=== PATIENT | male | born 1960 | race Caucasian/White ===

== ENCOUNTER 2016-07-01 17:55 | Observation (INO) | payer BC ==
[2016-07-01] MEDS ORDERED: Sodium Chloride 0.9% 1000 ML 1,000 ML ONE (18:04)
[2016-07-01] MEDS ORDERED: Sodium Chloride 0.9% 500 ML 500 ML IV ONE (18:45)
[2016-07-01] MEDS: Sodium Chloride 0.9% 1000 ML 1,000 ML IV SCH (18:46)
[2016-07-01] MEDS ORDERED: ROCEPHIN 1 Gm-D5w 50 ml Bag** 50 ML IV SCH (19:00)
--- NOTE | 2016-07-01 20:10 | PCM.HP ---
History of Present Illness - Chief Complaint Chief Complaint: pneumonia. michelle History of Present Illness: is a 56 year old male pt of mine from [facility] who has been treated for respiratory symptoms for the past 3 weeks. 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 He did feel better briefly yesterday then started feeling poorly again and went to see Catia LOVE in office today. She thought he looked ill and recommended hospital admission. He has been complaining of cough (enough that his abdominal muscles are sore) and drainage, sore throat. Waking up at night with sweats. No vomiting or diarrhea. He has c/o generalized fatigue for the past 2-3 months. We did do an involved workup and his sleep study results are still pending. Has been seeing hematology for polycythemia. - Review of Systems Constitutional: Fever, Fatigue, Weight Loss Respiratory: Cough Cardiac: Edema Abdominal/Gastrointestinal: Appetite Changes Psychological: Anxiety All Other Systems: Reviewed and Negative Medications & Allergies Home Medications: Home Medication List Furosemide 40 mg [Lasix 40 MG] 40 mg PO DAILY 07/01/16 [History Confirmed 07/01/16] Levothyroxine Sodium [Synthroid] 125 mcg PO DAILY 07/01/16 [History Confirmed ] Lisinopril 20 mg [Zestril 20 MG] 20 mg PO DAILY 07/01/16 [History Confirmed 07/01/16] Rivaroxaban 10 mg Tablet [Xarelto 10 mg Tablet] 10 mg PO DAILY 07/01/16 [ History Confirmed 07/01/16] Verapamil HCl [Verelan Pm] 300 mg PO HS 07/01/16 [History Confirmed 07/01/16] Allergies/Adverse Reactions: Allergies Allergy/AdvReac Type Severity Reaction Status Date / Time Penicillins Allergy Hives Verified 07/13/12 16:14 - Past Medical History Past Medical History: Yes Neurological History: No Pertinent History ENT History: No Pertinent History Cardiac History: Arrhythmia, Hypertension Respiratory History: Pneumonia Endocrine Medical History: Hypothyroidism Musculoskelatal History: No Pertinent History History: No Pertinent History Pyscho-Social History: No Pertinent History Male Reproductive Disorders: No Pertinent History Comment: hx AFIB - Past Surgical History Past Surgical History: Yes Neuro Surgical History: No Pertinent History Cardiac History: No Pertinent History Respiratory Surgery: No Pertinent History GI Surgical History: Hernia Repair Genitourinary Surgical Hx: Kidney Surgery Musculskeletal Surgical Hx: No Pertinent History Male Surgical History: No Pertinent History Other Surgical History: nasal - Social History Smoking Status: Never smoker Exposure to second hand smoke: No Alcohol: None Drug Use: none - Physical Exam Vital Signs: Vital Signs - 24 hr Temp Pulse Resp BP Pulse Ox 07/01/16 19:58 98.4 F 83 20 144/92 94 L 07/01/16 18:27 98.4 F 83 20 144/92 94 L General Appearance: no apparent distress, obese Neurologic Exam: alert, 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, cooperative Eye Exam: eyes nml inspection Neck Exam: normal inspection, other (ttp throughout) Respiratory Exam: normal breath sounds, lungs clear, No crackles/rales, No rhonchi, No wheezing Cardiovascular Exam: regular rate/rhythm, normal heart sounds, No murmur Gastrointestinal/Abdomen Exam: soft, normal bowel sounds, No tenderness, No guarding, No rebound Back Exam: normal inspection, No CVA tenderness Extremity Exam: swelling (pretibial edema 1+ bilat) Skin Exam: normal color, warm, dry Results - Radiology Impressions Radiology Exams & Impressions: Radiology Procedures Category Date Time Status CHEST 2 VIEWS (PA AND LAT) Routine Exams 07/02/16 06:00 Ordered - Other Procedures and Tests Respiratory Therapy 07/01/16 18:10 Oxygen NASAL CANNULA 2 lpm 07/01/16 18:15 Respiratory Nebulizer UD Assessment/Plan (1) Pneumonia Current Visit: Yes Status: Acute Qualifiers: Pneumonia type: due to unspecified organism Lung location: unspecified part of lung Assessment & Plan: possibly. recheck cxr in a.m. after rehydration. continues to be ill after po antibiotics and steroids. Code(s): J18.9 - PNEUMONIA, UNSPECIFIED ORGANISM (2) Sinusitis Current Visit: Yes Status: Acute Assessment & Plan: on IV rocephin. Code(s): J32.9 - CHRONIC SINUSITIS, UNSPECIFIED (3) Fatigue Current Visit: Yes Status: Chronic Assessment & Plan: will find report on sleep study Code(s): R53.83 - OTHER FATIGUE (4) Polycythemia Current Visit: Yes Status: Chronic Code(s): D75.1 - SECONDARY POLYCYTHEMIA
[2016-07-01] MEDS ORDERED: DUONEB 0.5-3 MG/3 ml Neb IH PRN (21:10)
[2016-07-01] MEDS ORDERED: ISOPTIN S.R. 240 MG PO SCH (22:00)
[2016-07-01] MEDS: Mucinex 600MG ER Tabs PO SCH (22:38)
[2016-07-02] MEDS: Sodium Chloride 0.9% 1000 ML 1,000 ML IV SCH ×2 (01:12→08:10)
[2016-07-02] MEDS: Tussionex Pennkinetic Susp PO PRN ×2 (03:57→04:03)
[2016-07-02 05:25] LABS: BASOPHIL % 0.2 % (0.0-0.4); Eosinophil % 0.6 % (0.00-5.0); Granulocytes % 71.3 % (36.0-66.0); Lymphocytes % 20.1 % (24.0-44.0); Mean Cell Volume 90.9 fl (78-100); Mean Corpuscular Hemoglobin 29.7 pg (26-32); Mean Platelet Volume 10.1 fl (6-9.5); Monocytes % 7.8 % (0.0-12.0); Platelet Count 274 K/mm3 (150-450); Red Blood Count 5.72 M/mm3 (4.1-5.6); Red Cell Distribution Width 14.9 % (11.5-14.0); White Blood Count 14.4 K/mm3 (4.0-10.5)
[2016-07-02 05:35] LABS: BLOOD UREA NITROGEN 15 mg/dL (9-20); CHLORIDE 98 mEq/L (98-107); Glucose 139 MG/DL (70-110); Potassium 3.7 mEq/L (3.5-5.1); SODIUM 128 mEq/L (136-145)
[2016-07-02] MEDS ORDERED: Tussionex Pennkinetic Susp PO PRN (06:28)
[2016-07-02] MEDS ORDERED: MEDICATION INTERVENTION MC SCH (07:15)
[2016-07-02] MEDS: Mucinex 600MG ER Tabs PO SCH (08:11)
--- NOTE | 2016-07-02 08:28 | XRAY ---
Indication: Fatigue. Pneumonia. Comparison: One day earlier PA/lateral chest remains hyperinflated and clear. Heart is not enlarged. No new/acute findings. Impression: Stable nonacute hyperinflated chest.
[2016-07-02] MEDS ORDERED: Lasix 40 MG PO SCH (10:00)
[2016-07-02] MEDS ORDERED: XARELTO 10 MG TABLET PO SCH (10:00)
[2016-07-02] MEDS ORDERED: Zestril 20 MG PO SCH (10:00)
[2016-07-02] MEDS ORDERED: SYNTHROID 125 MCG PO SCH (10:00)
[2016-07-02] MEDS ORDERED: Levofloxacin 500MG/100ML D5W 100 ML IV SCH (10:00)
[2016-07-02] MEDS ORDERED: solu-MEDROL 40 MG IV ONE (10:16)
--- NOTE | 2016-07-02 10:22 | PCM.DS ---
Discharge Summary Date of Admission: 07/01/16 17:57 Admitting Physician: FEDERICA DAVILA Primary Care Provider: FEDERICA DAVILA Allergies Allergies Penicillins Allergy (Verified 07/13/12 16:14) [facility] Summary - Hospital Course Hospital Course: Admitted with question of pneumonia, has been treated several times for URI symptoms. Somewhat better with rocephin but will add levaquin and send home on same (discussed risk of achilles tendon issues, foot and ankle pain). Today Pt' s throat is feeling better, still coughing although a little better with cough medicine. C/o pain in L ear. Just feeling tired. Still looking for sleep study results. - Vitals & Intake/Output Vital Signs: Vital Signs Temperature 98.5 F 07/02/16 07:00 Pulse Rate 73 07/02/16 07:36 Respiratory Rate 18 07/02/16 07:37 Blood Pressure 137/89 07/02/16 07:00 O2 Sat by Pulse Oximetry 96 07/02/16 07:36 Intake & Output: Intake & Output 06/29/16 06/30/16 07/01/16 07/02/16 11:59 11:59 11:59 11:59 Intake Total 2224 Balance 2224 Weight 158.984 kg - Lab Result Diagrams: 07/02/16 05:10 07/02/16 05:05 Lab Results-Last 24 Hrs: Lab Results-Last 24 Hours 07/01/16 07/01/16 07/02/16 Range/Units 20:04 20:05 05:05 WBC (4.0-10.5) K/mm3 RBC (4.1-5.6) M/mm3 Hgb (12.5-18.0) gm/dl Hct (42-50) % MCV (78-100) fl MCH (26-32) pg MCHC (32-36) g/dl RDW (11.5-14.0) % Plt Count (150-450) K/mm3 MPV (6-9.5) fl Gran % (36.0-66.0) % Lymphocytes % (24.0-44.0) % Monocytes % (0.0-12.0) % Eosinophils % (0.00-5.0) % Basophils % (0.0-0.4) % Basophils # (0-0.4) Sodium 128 L (136-145) mEq/L Potassium 3.7 (3.5-5.1) mEq/L Chloride 98 (98-107) mEq/L Carbon Dioxide 29.0 (21-32) mEq/L Anion Gap 5.0 (5-15) MEQ/L BUN 15 (9-20) mg/dL Creatinine 1.18 (0.55-1.30) mg/dl Estimated GFR > 60 ML/MIN Glucose 139 H (70-110) MG/DL Calcium 8.0 L (8.5-10.1) mg/dL Influenza Type A Ag NEGATIVE (NEGATIVE) Influenza Type B Ag NEGATIVE (NEGATIVE) RSV (PCR) NEGATIVE (Negative) Streptococcus Screen NEGATIVE (Negative) 07/02/16 Range/Units 05:10 WBC 14.4 H (4.0-10.5) K/mm3 RBC 5.72 H (4.1-5.6) M/mm3 Hgb 17.0 (12.5-18.0) gm/dl Hct 52.0 H (42-50) % MCV 90.9 (78-100) fl MCH 29.7 (26-32) pg MCHC 32.7 (32-36) g/dl RDW 14.9 H (11.5-14.0) % Plt Count 274 (150-450) K/mm3 MPV 10.1 H (6-9.5) fl Gran % 71.3 H (36.0-66.0) % Lymphocytes % 20.1 L (24.0-44.0) % Monocytes % 7.8 (0.0-12.0) % Eosinophils % 0.6 (0.00-5.0) % Basophils % 0.2 (0.0-0.4) % Basophils # 0.03 (0-0.4) Sodium (136-145) mEq/L Potassium (3.5-5.1) mEq/L Chloride (98-107) mEq/L Carbon Dioxide (21-32) mEq/L Anion Gap (5-15) MEQ/L BUN (9-20) mg/dL Creatinine (0.55-1.30) mg/dl Estimated GFR ML/MIN Glucose (70-110) MG/DL Calcium (8.5-10.1) mg/dL Influenza Type A Ag (NEGATIVE) Influenza Type B Ag (NEGATIVE) RSV (PCR) (Negative) Streptococcus Screen (Negative) Micro Results-Entire Visit: Microbiology 07/01/16 20:04 Throat Culture - Preliminary Throat NO BETA GROWTH TO DATE - Radiology Exams Ordered Rad Exams-Entire Visit: Radiology Procedures Category Date Time Status CHEST 2 VIEWS (PA AND LAT) Routine Exams 07/02/16 06:00 Completed - Procedures and Test Procedures and Tests throughout Hospitalization: Therapy Orders & Screens 07/01/16 18:10 Oxygen NASAL CANNULA 2 lpm Comment: TO KEEP SATS >90% Diagnosis: PNE,FATIGUE 07/01/16 18:15 Respiratory Nebulizer UD Comment: TO KEEP SATS >90% Diagnosis: PNE,FATIGUE Name of medication?: DUONEBS EVERY4-6 HRS PRN 07/01/16 21:10 Respiratory Therapy Consult ROUTINE Comment: Reason For Exam: Diagnosis: pneumonia. fatique Discharge Exam General Appearance: no apparent distress Neurologic Exam: alert, 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, cooperative Skin Exam: normal color, warm, dry Ears, Nose, Throat Exam: TMs normal Respiratory Exam: normal breath sounds, lungs clear, No crackles/rales, No rhonchi, No wheezing Cardiovascular Exam: regular rate/rhythm, normal heart sounds, No murmur Final Diagnosis/Problem List - Final Discharge Diagnosis/Problem (1) Pneumonia Current Visit: Yes Status: Acute Assessment & Plan: CXR still normal today. (2) Sinusitis Current Visit: Yes Status: Acute Assessment & Plan: treat with levaquin and steroids. (3) Fatigue Current Visit: Yes Status: Chronic Assessment & Plan: will get sleep study result. if normal, will advise please follow recommendations of drum worker regarding bone marrow studies. (4) Polycythemia Current Visit: Yes Status: Chronic - Discharge Disposition: Home, Self-Care Condition: Stable Prescriptions: New Prednisone 10 mg [Deltasone 10 mg] 10 mg PO DAILY #65 tablet Levofloxacin [Levaquin] 500 mg PO DAILY #12 tablet Hydrocodone/Chlorphen P-Stirex [Tussionex Pennkinetic Susp] 5 ml PO BID PRN # 1 [id number] PRN Reason: Cough Continue Lisinopril 20 mg [Zestril 20 MG] 20 mg PO DAILY Levothyroxine Sodium [Synthroid] 125 mcg PO DAILY Furosemide 40 mg [Lasix 40 MG] 40 mg PO DAILY Rivaroxaban 10 mg Tablet [Xarelto 10 mg Tablet] 10 mg PO DAILY Verapamil HCl [Verelan Pm] 300 mg PO HS Instructions: Sinusitis, Fatigue Follow up with: FEDERICA DAVILA [Primary Care Provider] - 07/08/16 9:00 am Forms: Discharge Instructions, Patient Portal Information
[2016-07-02 11:10] VITALS: BP 159/88; PULSE 80; O2SAT 95
[2016-07-02] MEDS ORDERED: VERAPAMIL HCL 300 MG PO SCH (22:00)
== END 2016-07-02 12:10 | disposition home or self-care (01) ==
LOC: MED SURG 17:57
PROVIDERS: ADMIT Family Medicine; ATTEND Family Medicine
DX: J18.9 Pneumonia, unspecified organism (principal); J32.9 Chronic sinusitis, unspecified; R53.83 Other fatigue; D75.1 Secondary polycythemia; I10 Essential (primary) hypertension; E03.9 Hypothyroidism, unspecified; I48.91 Unspecified atrial fibrillation; Z79.899 Other long term (current) drug therapy
CPT/HCPCS: 36415; 71020; 80048; 85025; 87070; 87430; 87631; 94760; G0378; J0696; J1956; J2920

== ENCOUNTER 2017-09-11 13:31 | Emergency (ER) | payer BC ==
[2017-09-11] MEDS ORDERED: Adacel Vial IM ONE ×2 (14:06→14:13)
--- NOTE | 2017-09-11 14:45 | XRAY ---
Indication: Left facial injury. Pain and dizziness.. Multiple contiguous axial images obtained through the cervical spine. Sagittal and coronal reformatted images obtained. Comparison: None Axial images negative for acute fracture, suspicious bony lesions, or spinal canal stenosis. Minimal C5-C7 degenerative endplate spurring. Sagittal and coronal reformatted images demonstrates cervical lordotic straightening, positional versus paraspinal muscular spasm. Disc spaces maintained. No acute compression fracture, subluxation, or jumped facet. Normal-appearing craniocervical junction. Visualized noncontrasted soft tissues including lung apices unremarkable. CT head and CT facial bones reported separately. Impression: 1. Negative acute fracture/subluxation. 2. Cervical lordotic straightening, positional versus paraspinal spasm. 3. Minimal C5-C7 degenerative disc disease. CT DI 122.59
--- NOTE | 2017-09-11 14:45 | XRAY ---
Indication: Left facial injury. Pain and dizziness.. Multiple contiguous axial images obtained through the head without contrast. Comparison: None Normal appearing brain parenchyma, ventricles, and bony calvarium. Minimal mucosal thickening of both maxillary sinuses. Mastoid air cells are clear. CT cervical spine and CT facial bones reported separately. Impression: 1. Normal CT head without contrast exam. 2. Minimal paranasal sinus disease. CT DI 48.76
--- NOTE | 2017-09-11 14:49 | XRAY ---
Indication: Left facial injury. Pain and dizziness.. Multiple contiguous axial images obtained through the facial bones. Sagittal and coronal reformatted images obtained. Comparison: None A few bilateral dental amalgams produces beam artifact limiting these levels. No acute fracture or suspicious bony lesions. Orbits including roof, goodman, and floors intact. There has been bilateral maxillary antrectomy. Mild mucosal thickening of both maxillary and lesser degree both ethmoid sinuses without fluid leveling. Visualized noncontrasted soft tissues unremarkable. CT head and CT cervical spine reported separately. Impression: 1. Negative acute fracture. 2. Incidental paranasal sinus disease with previous bilateral antrectomy surgery. CT DI 59.47
[2017-09-11] MEDS ORDERED: NORCO 5/325 MG PO ONE (15:07)
--- NOTE | 2017-09-11 15:11 | ERPHSYRPT ---
- History of Present Illness Time Seen by Provider: 09/11/17 13:59 Source: patient Exam Limitations: no limitations Patient Subjective Stated Complaint: to er c/o facial injury with loc Triage Nursing Assessment: to er following facial injury pt states he was at work and walked into a jeep door. pt has injury noted to left side of nose and slight swelling. pt also reports pain to mid upper neck. pt states he fell sideway into the back of the jeep never hitting ground with a reported loc for approx 20 sec. pt arrives pale w/d resp easy a@ox3 denies any vomiting nausea present. Physician History: Pt accidentally hit an open truck door with his nose, passed out for 15 seconds , developed headaches. He denies other injury, but his neck became sore and developed headaches. He denies nausea, vomiting, chest pain, SOB, focal weakness , numbness, visual changes or slurred speech, he ambulates without difficulty. Occurred: just prior to arrival Severity: mild Head Injury Location: frontal Method of Injury: direct blow Loss of Consciousness: brief (seconds) Associated Symptoms: headaches, other (neck soreness) Allergies/Adverse Reactions: Penicillins Allergy (Verified 07/13/12 16:14) Hives Home Medications: Furosemide 40 mg [Lasix 40 MG] 40 mg PO DAILY 07/01/16 [History] Apixaban [Eliquis 5 mg Tablet] 5 mg PO 09/11/17 [History] Clarithromycin [Clarithromycin] 09/11/17 [History] Metoprolol Tartrate [Metoprolol Tartrate] 09/11/17 [History] Thyroid,Pork [Fowler Thyroid] 09/11/17 [History] cephALEXin [Cephalexin] 09/11/17 [History] Hx Tetanus, Diphtheria Vaccination/Date Given: No Hx Influenza Vaccination/Date Given: No Hx Pneumococcal Vaccination/Date Given: No - Review of Systems Constitutional: No Symptoms Musculoskeletal: Neck Pain Neurological: Headache All Other Systems: Reviewed and Negative - Past Medical History Pertinent Past Medical History: Yes Neurological History: No Pertinent History ENT History: No Pertinent History Cardiac History: Hypertension Respiratory History: Pneumonia Endocrine Medical History: Hypothyroidism Musculoskeletal History: No Pertinent History History: No Pertinent History Psycho-Social History: No Pertinent History Male Reproductive Disorders: No Pertinent History Other Medical History: hx AFIB, neck fx - Past Surgical History Past Surgical History: Yes Neuro Surgical History: No Pertinent History Cardiac: No Pertinent History Respiratory: No Pertinent History Gastrointestinal: Hernia Repair Genitourinary: Kidney Surgery Musculoskeletal: No Pertinent History Male Surgical History: No Pertinent History Other Surgical History: nasal, left knee scope, kidney stones removed - Social History Smoking Status: Never smoker Exposure to second hand smoke: No Drug Use: none Patient Lives Alone: No - Nursing Vital Signs Nursing Vital Signs: Initial Vital Signs Temperature 98.2 F 09/11/17 13:45 Pulse Rate 84 09/11/17 13:45 Respiratory Rate 18 09/11/17 13:45 Blood Pressure 153/72 09/11/17 13:45 Pain Scale Pain Intensity 2 - Craig Coma Score Best Eye Response (Craig): (4) open spontaneously Best Verbal Response (Craig): (5) oriented Best Motor Response (Craig): (6) obeys commands Craig Total: 15 - Physical Exam General Appearance: no apparent distress Head Injury: no evidence of injury Eye Exam: bilateral eye: PERRL, EOMI ENT Exam: airway nml, other (< 1cm superficial laceration on the left nose bridge, no swelling, deformity, no nosebleed.) Neck Exam: supple, trachea midline, normal alignment, normal inspection, other ( mild right paracervical muscular tenderness, no torticollis or spasms.) Cardiovascular/Respiratory Exam: chest non-tender, normal breath sounds, regular rate/rhythm, heart sounds normal, no respiratory distress, No no ecchymosis, No no JVD Gastrointestinal/Abdominal Exam: soft, non tender, no ecchymosis Back Exam: normal inspection, No CVA tenderness, No vertebral tenderness Extremity Exam: non-tender, no calf tenderness Mental Status Exam: alert, 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, 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 Exam: normal speech Coordination/Gait Exam: normal gait Motor/Sensory Exam: no motor deficit DTR Exam: knee (R): 3+, knee (L): 3+ Skin Exam: normal color, warm, dry SpO2 Interpretation: normal Oxygen Delivery: Room Air - CT Exams Head CT Interpretation: Negative, Tele-radiologist Report Cervical Spine CT Interpretation: Negative, Tele-radiologist Report, Other (cervical lordotic straightening) Maxillofacial Bones CT Interpretation: Negative, Tele-radiologist Report Ordered Tests: Active Orders 24 hr Category Date Time Status Orthostatic Vital Signs STAT Care 09/11/17 15:02 Active CERVICAL SPINE WO CONTRAST [CT] Stat Exams 09/11/17 14:04 Completed FACIAL BONES WO CONTRAST [CT] Stat Exams 09/11/17 14:04 Completed HEAD WITHOUT CONTRAST [CT] Stat Exams 09/11/17 14:04 Completed Medication Summary Discontinued Medications Generic Name Dose Route Start Last Admin Trade Name Freq PRN Reason Stop Dose Admin Hydrocodone Bitart/Acetaminophen 1 tab 09/11/17 15:07 09/11/17 15:12 Mobile 5/325 Mg PO 09/11/17 15:08 1 tab STAT ONE Administration Hydrocodone Bitart/Acetaminophen Confirm 09/11/17 15:12 Mobile 5/325 Mg Administered 09/11/17 15:13 Dose 1 tab .ROUTE .STK-MED ONE Diphtheria/Tetanus/Acell Pertussis 0.5 ml 09/11/17 14:06 09/11/17 14:14 Adacel Vial IM 09/11/17 14:07 0.5 ml .ONCE ONE Administration Diphtheria/Tetanus/Acell Pertussis Confirm 09/11/17 14:13 Adacel Vial Administered 09/11/17 14:14 Dose 0.5 ml IM .STK-MED ONE - Progress Progress: improved Progress Note: 09/11/17 16:01 Pt states improved, his headache is 2/10, not orthostatic, stable, not nauseated , feels better. 09/11/17 16:01 I informed him and his about CT results, he is being discharged in good condition to rest x 2-3 days, drink plenty of fluids, and apply moist heat to his neck, follow up with his doctor in 3-4 days, return if severe headaches, vomiting, lethargy . - Departure Time of Disposition: 16:02 Departure Disposition: Home Clinical Impression: Head contusion Qualifiers: Encounter type: initial encounter Contusion of head detail: nose Qualified Code (s): S00.33XA - Contusion of nose, initial encounter Cervical strain, acute Qualifiers: Encounter type: initial encounter Qualified Code(s): S16.1XXA - Strain of muscle, fascia and tendon at neck level, initial encounter Condition: Stable Critical Care Time: No Referrals: FEDERICA DAVILA [Primary Care Provider] - Instructions: Contusion (DC), Concussion, Adult (DC) Additional Instructions: Rest x 2-3 days, drink plenty of fluids, apply moist heat to neck, return if severe headaches, vomiting, lethargy ! Follow up with your physician in 3-4 days ! Prescriptions: Cyclobenzaprine HCl [Flexeril] 10 mg PO TID 5 Days #15 tablet
[2017-09-11] MEDS ORDERED: NORCO 5/325 MG ONE (15:12)
[2017-09-11 15:56] VITALS: BP 130/83; PULSE 68; O2SAT 98
== END 2017-09-11 16:13 | disposition home or self-care (01) ==
LOC: ED 13:31
DX: S00.33XA Contusion of nose, initial encounter (principal); S01.21XA Laceration without foreign body of nose, initial encounter; S16.1XXA Strain of muscle, fascia and tendon at neck level, initial encounter; M54.2 Cervicalgia; R51 Headache; W22.8XXA Striking against or struck by other objects, initial encounter; Y99.0 Civilian activity done for income or pay; Z79.899 Other long term (current) drug therapy
CPT/HCPCS: 70450; 70486; 72125; 90471; 90715; 99283; 99284; A9270-GY

== ENCOUNTER 2017-11-05 19:55 | Emergency (ER) | payer BC ==
[2017-11-05] MEDS ORDERED: MORPHINE SULFATE 10 MG/ML IV ONE (20:10)
[2017-11-05] MEDS ORDERED: Sodium Chloride 0.9% 1000 ML 1,000 ML IV STA (20:10)
[2017-11-05] MEDS ORDERED: Zofran 4 MG/2 ML VIAL IV ONE (20:10)
--- NOTE | 2017-11-05 20:15 | ERPHSYRPT ---
- History of Present Illness Time Seen by Provider: 11/05/17 20:05 Historian: patient Exam Limitations: no limitations Physician History: Pt started c/o sudden RLQ abdominal pain, dry heaving one hour ago. He denies diarrhea, fever, chills, urinary complaints, other complaints. He has a history of hernia repair and Kidney stones. Timing/Duration: hour(s) (1) Activities at Onset: none Quality: cramping, sharpness Abdominal Pain Onset Location: RLQ Pain Radiation: no radiation Severity of Pain-Max: severe Severity of Pain-Current: severe Modifying Factors: Improves With: nothing Associated Symptoms: nausea, vomiting Previous symptoms: same symptoms as today Allergies/Adverse Reactions: Penicillins Allergy (Verified 11/05/17 20:44) Hives Home Medications: Furosemide 40 mg [Lasix 40 MG] 40 mg PO DAILY 07/01/16 [History] Apixaban [Eliquis 5 mg Tablet] 5 mg PO 09/11/17 [History] Clarithromycin 09/11/17 [History] Metoprolol Tartrate 09/11/17 [History] Thyroid,Pork [Lloyd Thyroid] 09/11/17 [History] cephALEXin [Cephalexin] 09/11/17 [History] Hx Tetanus, Diphtheria Vaccination/Date Given: No Hx Influenza Vaccination/Date Given: No Hx Pneumococcal Vaccination/Date Given: No - Review of Systems Constitutional: No Symptoms Abdominal/Gastrointestinal: Abdominal Pain, Nausea, Vomiting All Other Systems: Reviewed and Negative - Past Medical History Pertinent Past Medical History: Yes Neurological History: No Pertinent History ENT History: No Pertinent History Cardiac History: Hypertension Respiratory History: Pneumonia Endocrine Medical History: Hypothyroidism Musculoskeletal History: No Pertinent History History: No Pertinent History Psycho-Social History: No Pertinent History Male Reproductive Disorders: No Pertinent History Other Medical History: hx AFIB, neck fx - Past Surgical History Past Surgical History: Yes Neuro Surgical History: No Pertinent History Cardiac: No Pertinent History Respiratory: No Pertinent History Gastrointestinal: Hernia Repair Genitourinary: Kidney Surgery Musculoskeletal: No Pertinent History Male Surgical History: No Pertinent History Other Surgical History: nasal, left knee scope, kidney stones removed - Social History Smoking Status: Never smoker Exposure to second hand smoke: No Drug Use: none Patient Lives Alone: No - Nursing Vital Signs Nursing Vital Signs: Initial Vital Signs Temperature 98.2 F 11/05/17 20:37 Pulse Rate 75 11/05/17 20:37 Respiratory Rate 18 11/05/17 20:37 Blood Pressure 169/87 11/05/17 20:37 O2 Sat by Pulse Oximetry 98 11/05/17 20:37 Pain Scale Pain Intensity 6 - Physical Exam General Appearance: mild distress Eye Exam: eyes nml inspection Ears, Nose, Throat Exam: normal ENT inspection, moist mucous membranes Neck Exam: normal inspection, non-tender Respiratory Exam: normal breath sounds, lungs clear, airway intact Cardiovascular Exam: regular rate/rhythm, normal heart sounds, normal peripheral pulses, No murmur Gastrointestinal/Abdomen Exam: soft, normal bowel sounds, tenderness (RLQ, mod.) , No distention, No mass, No guarding, No pulsatile mass Back Exam: normal inspection, No CVA tenderness Extremity Exam: normal inspection Neurologic Exam: alert, 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, normal mood/affect Skin Exam: normal color, warm, dry, No rash Lymphatic Exam: No adenopathy SpO2 Interpretation: normal Oxygen Delivery: Room Air - Course Nursing assessment & vital signs reviewed: Yes - CT Exams Abdomen/Pelvis CT Interpretation: Tele-radiologist Report, Other (new 3-4 mm right urinary bladder calc. with minimal right hydronephrosis, remaining CT abd, pelvis is negative) Ordered Tests: Active Orders 24 hr Category Date Time Status IV Insertion STAT Care 11/05/17 20:10 Active ABDOMEN AND PELVIS W/0 CONTRAS [CT] Stat Exams 11/05/17 20:11 Taken CBC W DIFF Stat Lab 11/05/17 20:23 Completed CMP Stat Lab 11/05/17 20:23 Completed CULTURE,URINE Stat Lab 11/05/17 22:41 Received LIPASE Stat Lab 11/05/17 20:23 Completed PROTIME WITH INR Stat Lab 11/05/17 20:23 Completed UA W/ MICROSCOPIC Stat Lab 11/05/17 22:41 Completed Medication Summary Discontinued Medications Generic Name Dose Route Start Last Admin Trade Name Freq PRN Reason Stop Dose Admin Hydromorphone HCl 1 mg 11/05/17 21:03 11/05/17 21:14 Hydromorphone 1 Mg/Ml Ampule IV 11/05/17 21:04 1 mg STAT ONE Administration Hydromorphone HCl Confirm 11/05/17 21:12 Dilaudid 2 Mg Injection Administered 11/05/17 21:13 Dose 2 mg .ROUTE .STK-MED ONE Sodium Chloride 1,000 mls @ 999 mls/hr 11/05/17 20:10 11/05/17 20:32 Sodium Chloride 0.9% 1000 Ml IV 11/05/17 21:10 999 mls/hr .Q1H1M STA Administration Sodium Chloride Confirm 11/05/17 20:30 Sodium Chloride 0.9% 1000 Ml Administered 11/05/17 20:31 Dose 1,000 mls @ ud .ROUTE .STK-MED ONE Morphine Sulfate 6 mg 11/05/17 20:10 11/05/17 20:31 Morphine Sulfate 10 Mg/Ml IV 11/05/17 20:11 6 mg STAT ONE Administration Morphine Sulfate Confirm 11/05/17 20:18 Morphine Sulfate 10 Mg/Ml Administered 11/05/17 20:19 Dose 10 mg .ROUTE .STK-MED ONE Ondansetron HCl 4 mg 11/05/17 20:10 11/05/17 20:32 Zofran 4 Mg/2 Ml Vial IV 11/05/17 20:11 4 mg STAT ONE Administration Ondansetron HCl Confirm 11/05/17 20:18 Zofran 4 Mg/2 Ml Vial Administered 11/05/17 20:19 Dose 4 mg .ROUTE .STK-MED ONE Lab/Rad Data: Laboratory Result Diagrams 11/05/17 20:23 11/05/17 20:23 Laboratory Results 11/05/17 11/05/17 11/05/17 Range/Units 22:41 20:23 20:23 WBC (4.0-10.5) K/mm3 RBC (4.1-5.6) M/mm3 Hgb (12.5-18.0) gm/dl Hct (42-50) % MCV (78-100) fl MCH (26-32) pg MCHC (32-36) g/dl RDW (11.5-14.0) % Plt Count (150-450) K/mm3 MPV (6-9.5) fl Gran % (36.0-66.0) % Eos # (Auto) (0-0.5) Absolute Lymphs (auto) (1.0-4.6) Absolute Monos (auto) (0.0-1.3) Lymphocytes % (24.0-44.0) % Monocytes % (0.0-12.0) % Eosinophils % (0.00-5.0) % Basophils % (0.0-0.4) % Absolute Granulocytes (1.4-6.9) Basophils # (0-0.4) PT 12.3 (8.83-12.87) SECONDS INR 1.06 (0.8-3.0) Sodium 141 (137-145) mmol/L Potassium 3.5 (3.5-5.1) mmol/L Chloride 105 (98-107) mmol/L Carbon Dioxide 24 (22-30) mmol/L Anion Gap 15.4 H (5-15) MEQ/L BUN 14 (9-20) mg/dL Creatinine 0.99 (0.66-1.25) mg/dL Estimated GFR > 60.0 ML/MIN Glucose 179 H (74-106) mg/dL Calcium 9.2 (8.4-10.2) mg/dL Total Bilirubin 0.60 (0.2-1.3) mg/dL AST 16 L (17-59) U/L ALT 21 (0-50) U/L Alkaline Phosphatase 106 (38-126) U/L Serum Total Protein 7.3 (6.3-8.2) g/dL Albumin 4.1 (3.5-5.0) g/dL Lipase 41 (23-300) U/L Ur Collection Type VOID Urine Color YELLOW (YELLOW) Urine Appearance SLIGHTLY CLOUDY (CLEAR) Urine pH 5.0 (5-6) Ur Specific [place] 1.025 (1.005-1.025) Urine Protein TRACE (Negative) Urine Ketones NEGATIVE (NEGATIVE) Urine Blood 250 (0-5) Arpan/ul Urine Nitrite NEGATIVE (NEGATIVE) Urine Bilirubin MODERATE (NEGATIVE) Urine Urobilinogen NORMAL (0-1) mg/dL Ur Leukocyte Esterase NEGATIVE (NEGATIVE) Urine Microscopic RBC 50-100 (0-2) /HPF Urine Microscopic WBC 0-2 (0-5) /HPF Ur Epithelial Cells MODERATE (FEW) /HPF Urine Bacteria MODERATE (NEGATIVE) /HPF Urine Mucus MANY (NEGATIVE) /HPF Urine Culture Reflexed YES (NO) Urine Glucose NEGATIVE (NEGATIVE) mg/dL Specimen Received 11/05/170 11/05/17 Range/Units 20:23 WBC 14.5 H (4.0-10.5) K/mm3 RBC 5.00 (4.1-5.6) M/mm3 Hgb 15.5 (12.5-18.0) gm/dl Hct 45.2 (42-50) % MCV 90.4 (78-100) fl MCH 31.0 (26-32) pg MCHC 34.3 (32-36) g/dl RDW 14.2 H (11.5-14.0) % Plt Count 305 (150-450) K/mm3 MPV 10.1 H (6-9.5) fl Gran % 60.3 (36.0-66.0) % Eos # (Auto) 0.64 H (0-0.5) Absolute Lymphs (auto) 3.73 (1.0-4.6) Absolute Monos (auto) 1.33 H (0.0-1.3) Lymphocytes % 25.8 (24.0-44.0) % Monocytes % 9.2 (0.0-12.0) % Eosinophils % 4.4 (0.00-5.0) % Basophils % 0.3 (0.0-0.4) % Absolute Granulocytes 8.71 H (1.4-6.9) Basophils # 0.04 (0-0.4) PT (8.83-12.87) SECONDS INR (0.8-3.0) Sodium (137-145) mmol/L Potassium (3.5-5.1) mmol/L Chloride (98-107) mmol/L Carbon Dioxide (22-30) mmol/L Anion Gap (5-15) MEQ/L BUN (9-20) mg/dL Creatinine (0.66-1.25) mg/dL Estimated GFR ML/MIN Glucose (74-106) mg/dL Calcium (8.4-10.2) mg/dL Total Bilirubin (0.2-1.3) mg/dL AST (17-59) U/L ALT (0-50) U/L Alkaline Phosphatase (38-126) U/L Serum Total Protein (6.3-8.2) g/dL Albumin (3.5-5.0) g/dL Lipase (23-300) U/L Ur Collection Type Urine Color (YELLOW) Urine Appearance (CLEAR) Urine pH (5-6) Ur Specific [place] (1.005-1.025) Urine Protein (Negative) Urine Ketones (NEGATIVE) Urine Blood (0-5) Arpan/ul Urine Nitrite (NEGATIVE) Urine Bilirubin (NEGATIVE) Urine Urobilinogen (0-1) mg/dL Ur Leukocyte Esterase (NEGATIVE) Urine Microscopic RBC (0-2) /HPF Urine Microscopic WBC (0-5) /HPF Ur Epithelial Cells (FEW) /HPF Urine Bacteria (NEGATIVE) /HPF Urine Mucus (NEGATIVE) /HPF Urine Culture Reflexed (NO) Urine Glucose (NEGATIVE) mg/dL Specimen Received - Progress Progress: improved Progress Note: 11/05/17 23:39 Improved after Dilaudid and Zofran, iv saline, CT report discussed with patient and his , he urinated out his stone, will take it with him, discharged in good condition, stable, afebrile, to follow up with his PCP in 1-2 days, return if severe pain, vomiting, fever> 101 F. Counseled pt/family regarding: lab results, diagnosis, need for follow-up, rad results - Departure Time of Disposition: 23:41 Departure Disposition: Home Clinical Impression: Ureteral stone Condition: Stable Critical Care Time: No Referrals: FEDERICA DAVILA [Primary Care Provider] - Instructions: Renal Colic (DC) Additional Instructions: Rest x 2-3 days, drink plenty of fluids, and follow up with your physician in 1- 2 days, return if severe pain, vomiting, or fever> 101 F!
[2017-11-05] MEDS ORDERED: MORPHINE SULFATE 10 MG/ML ONE (20:18)
[2017-11-05] MEDS ORDERED: Zofran 4 MG/2 ML VIAL ONE (20:18)
[2017-11-05] MEDS ORDERED: Sodium Chloride 0.9% 1000 ML 1,000 ML ONE (20:30)
[2017-11-05 20:31] LABS: BASOPHIL % 0.3 % (0.0-0.4); Basophil (Absolute #) 0.04 (0-0.4); Eosinophil % 4.4 % (0.00-5.0); Eosinophil (Absolute #) 0.64 (0-0.5); Granulocyte Absolute (ANC) 8.71 (1.4-6.9); Granulocytes % 60.3 % (36.0-66.0); Hematocrit 45.2 % (42-50); Hemoglobin 15.5 gm/dl (12.5-18.0); Lymphocyte (Absolute #) 3.73 (1.0-4.6); Lymphocytes % 25.8 % (24.0-44.0); Mean Cell Volume 90.4 fl (78-100); Mean Corpuscular Hgb Concent. 34.3 g/dl (32-36); Mean Platelet Volume 10.1 fl (6-9.5); Monocyte (Absolute #) 1.33 (0.0-1.3); Monocytes % 9.2 % (0.0-12.0); Platelet Count 305 K/mm3 (150-450); Red Cell Distribution Width 14.2 % (11.5-14.0); White Blood Count 14.5 K/mm3 (4.0-10.5)
[2017-11-05 20:41] LABS: INR 1.06 (0.8-3.0)
[2017-11-05 20:46] LABS: ALBUMIN 4.1 g/dL (3.5-5.0); ALKALINE PHOSPHATASE 106 U/L (38-126); ANION GAP 15.4 MEQ/L (5-15); BLOOD UREA NITROGEN 14 mg/dL (9-20); CHLORIDE 105 mmol/L (98-107); Calcium 9.2 mg/dL (8.4-10.2); Carbon Dioxide 24 mmol/L (22-30); Creatinine 1 0.99 mg/dL (0.66-1.25); Glucose 179 mg/dL (74-106); LIPASE 41 U/L (23-300); Potassium 3.5 mmol/L (3.5-5.1); SGOT/AST 16 U/L (17-59); SGPT/ALT 21 U/L (0-50); SODIUM 141 mmol/L (137-145); Total Protein 7.3 g/dL (6.3-8.2)
[2017-11-05] MEDS ORDERED: Hydromorphone 1 mg/ml Ampule IV ONE (21:03)
[2017-11-05] MEDS ORDERED: DILAUDID 2 MG INJECTION ONE (21:12)
[2017-11-05 22:32] VITALS: PULSE 76
[2017-11-05 23:07] LABS: Appearance SLIGHTLY CLOUDY (CLEAR); Bilirubin MODERATE (NEGATIVE); Blood 250 Ery/ul (0-5); Glucose NEGATIVE (NEGATIVE); Ketones NEGATIVE (NEGATIVE); Leukocyte Esterase NEGATIVE (NEGATIVE); Nitrite NEGATIVE (NEGATIVE); Protein,Urine Dip TRACE (Negative); Specific Gravity 1.025 (1.005-1.025); Urobilinogen NORMAL mg/dL (0-1)
[2017-11-05 23:08] LABS: Bacteria MODERATE /HPF (NEGATIVE); Epithelial Cells MODERATE /HPF (FEW); Mucus MANY /HPF (NEGATIVE); RBC 50-100 /HPF (0-2); WBC 0-2 /HPF (0-5)
[2017-11-05] MEDS ORDERED: NORCO 5/325 MG PO ONE (23:35)
[2017-11-05] MEDS ORDERED: NORCO 5/325 MG ONE (23:39)
[2017-11-05 23:56] VITALS: BP 125/70; O2SAT 95
--- NOTE | 2017-11-06 08:53 | XRAY ---
Indication: Abdominal pain. History kidney stone. Multiple contiguous axial images obtained through the abdomen and pelvis without contrast as ordered. Comparison: September 16, 2006. Lung bases demonstrates minimal bilateral dependent atelectasis and right infrahilar calcified granulomas. No infiltrate or effusion. Heart is not enlarged. Noncontrasted stomach and bowel loops appear nonobstructed. Normal appendix. No free fluid/air. New 3-4 mm calculus in the right posterior urinary bladder. Right kidney is mildly hydronephrotic and right ureter is minimally prominent presumed from recent passage of said calculus. Stable fatty liver and tiny hepatic/splenic calcified granulomas. Remaining liver, gallbladder, pancreas, spleen, adrenal glands, kidneys, ureters, and bladder appear unremarkable for noncontrast exam. There remains minimal aortoiliac calcifications with now 3.1 cm fusiform distal AAA. Osseous structures intact again with mild degenerative changes throughout the spine. Impression: 1. New urinary bladder micro-calculus as detailed. 2. 3.1 cm distal AAA. 3. Stable fatty liver and evidence for old granulomatous disease. CT DI 28.13
== END 2017-11-05 23:56 | disposition home or self-care (01) ==
LOC: ED 19:55
DX: N20.1 Calculus of ureter (principal); Z87.442 Personal history of urinary calculi; R10.31 Right lower quadrant pain; R11.2 Nausea with vomiting, unspecified
CPT/HCPCS: 36000; 36415; 74176; 80053; 81000; 83690; 85025; 85610; 87086; 96360; 96374; 96375; 99284; J1170; J2270; J2405; A9270-GY

== ENCOUNTER 2018-07-08 05:58 | Day surgery (SDC) | payer BC ==
[2018-07-08] MEDS ORDERED: DIPRIVAN 200 MG/20 ML IV ONE (05:59)
[2018-07-08] MEDS ORDERED: Lactated Ringers 1,000 ML IV SCH (06:30)
[2018-07-08] MEDS ORDERED: Lactated Ringers 1,000 ML IV ONE (06:47)
[2018-07-08 08:55] VITALS: BP 155/87; PULSE 64; O2SAT 95
--- NOTE | 2018-07-08 12:55 | OP ---
SURGERY DATE/TIME: 07/08/2018 0723 PREOPERATIVE DIAGNOSIS: Screening colonoscopy. POSTOPERATIVE DIAGNOSIS: Normal colon. PROCEDURE: Screening colonoscopy. SURGEON: Lakhwinder Alexandre M.D. ANESTHESIA: MAC by Nicolas Sahni CRNA. ESTIMATED BLOOD LOSS: None. SPECIMENS: None. DESCRIPTION OF PROCEDURE: After informed written consent was obtained, the patient was taken to the endoscopy suite. He underwent monitored anesthesia and digital rectal exam showed normal sphincter tone and no internal lesions. The scope was inserted into the rectum and sequentially the entire colonic mucosa was traversed. The level of cecum was reached and verified with direct visualization of ileocecal valve. Upon withdrawal careful mucosal inspection revealed no gross abnormalities. Normal mucosal structure. There was some minimal liquid stool present but overall had adequate prep. Prior to withdrawal retroflexion was performed and showed no internal lesions. The scope was removed and the patient was transferred to the recovery room in good condition.
== END 2018-07-08 09:14 | disposition home or self-care (01) ==
LOC: SDC 05:58
PROVIDERS: ATTEND Family Medicine
DX: Z12.11 Encounter for screening for malignant neoplasm of colon (principal); E11.9 Type 2 diabetes mellitus without complications; G47.33 Obstructive sleep apnea (adult) (pediatric); E03.9 Hypothyroidism, unspecified
CPT/HCPCS: 82962; J2704

== ENCOUNTER 2018-09-01 18:13 | Observation (INO) | payer BC ==
--- NOTE | 2018-09-01 18:48 | ERPHSYRPT ---
- History of Present Illness Source: patient, family Patient Subjective Stated Complaint: pt here from [facility] care for not feeling well today,they wanted pt seen for a high white count and weakness, pt states thats he started having sorethroat yesterday. fever. aches all over, congestion Triage Nursing Assessment: pt alert, arrived per wc, appear ill. skin w/d/p. resp easy, nonproductive cough. abd soft, she states he coughed up scant amt of blood this am Timing/Duration: day(s) (1) Severity: moderate Modifying Factors: Improves With: movement Associated Symptoms: malaise, weakness, No nausea, No vomiting, No abdominal pain, No shortness of breath, No chest pain, No syncope Hx Tetanus, Diphtheria Vaccination/Date Given: No Hx Influenza Vaccination/Date Given: No Hx Pneumococcal Vaccination/Date Given: No Immunizations Up to Date: Yes <EDWIN JOINER - Last Filed: 09/01/18 18:55> <REECE LOAIZA - Last Filed: 09/01/18 20:45> - History of Present Illness Time Seen by Provider: 09/01/18 18:42 Physician History: 58 y/o obese, diabetic white male on eliquis for afib presents with cough, sore throat, generalized myalgias and arthralgias for 24 hours. this am he felt even weaker and as though he was hit by a truck. pt denies cp, denies soa, denies abd pain, denies n/v/d. pt seen a quick care earlier. [facility] sent pt to us when pt felt as though he was going to pass out. pts flu and strep tests negative, wbc 20.8 and stat cxr pending. (EDWIN JOINER) Allergies/Adverse Reactions: Penicillins Allergy (Verified 09/01/18 18:22) Hives Home Medications: Furosemide 40 mg [Lasix 40 MG] 40 mg PO DAILY 07/01/16 [History] Apixaban [Eliquis 5 mg Tablet] 5 mg PO BID 09/11/17 [History] Metoprolol Tartrate 25 mg PO DAILY 09/11/17 [History] Thyroid,Pork [Ione Thyroid] 120 mg PO DAILY 09/11/17 [History] Citalopram Hydrobromide [Citalopram HBr] 10 mg PO DAILY 07/06/18 [History] Metformin HCl 500 mg [Glucophage 500 MG] 500 mg PO BID 07/06/18 [History] - Review of Systems Constitutional: Weakness Eyes: No Symptoms Ears, Nose, & Throat: No Symptoms Respiratory: No Symptoms Cardiac: No Symptoms Abdominal/Gastrointestinal: No Symptoms, No Abdominal Pain, No Nausea, No Vomiting, No Diarrhea Genitourinary Symptoms: No Symptoms Musculoskeletal: Arthralgias, Myalgias, No Fall, No Injury Skin: No Symptoms Neurological: No Symptoms Psychological: No Symptoms Endocrine: No Symptoms Hematologic/Lymphatic: No Symptoms Immunological/Allergic: No Symptoms All Other Systems: Reviewed and Negative <EDWIN JOINER - Last Filed: 09/01/18 18:55> - Past Medical History Pertinent Past Medical History: Yes Neurological History: No Pertinent History ENT History: No Pertinent History Cardiac History: Arrhythmia, Hypertension Respiratory History: Pneumonia, Sleep Apnea Endocrine Medical History: Diabetes Type II, Hypothyroidism Musculoskeletal History: No Pertinent History GI Medical History: No Pertinent History History: No Pertinent History Psycho-Social History: No Pertinent History Male Reproductive Disorders: No Pertinent History Other Medical History: hx AFIB, neck fx - Past Surgical History Past Surgical History: Yes Neuro Surgical History: No Pertinent History Cardiac: No Pertinent History Respiratory: No Pertinent History Gastrointestinal: Hernia Repair Genitourinary: Kidney Surgery Musculoskeletal: Orthopedic Surgery Male Surgical History: No Pertinent History Other Surgical History: nasal, left knee scope, kidney stones removed - Social History Smoking Status: Never smoker Exposure to second hand smoke: No Drug Use: none Patient Lives Alone: No <EDWIN JOINER - Last Filed: 09/01/18 18:55> - Physical Exam General Appearance: moderate distress, alert, obese Eye Exam: PERRL/EOMI Ears, Nose, Throat Exam: normal ENT inspection, moist mucous membranes, No TMs normal, No pharynx normal Neck Exam: normal inspection, non-tender, supple, full range of motion, No lymphadenopathy Respiratory Exam: normal breath sounds, chest tenderness, lungs clear, respiratory distress Cardiovascular Exam: regular rate/rhythm, normal heart sounds, normal peripheral pulses Gastrointestinal/Abdomen Exam: soft, normal bowel sounds, No tenderness, No guarding Rectal Exam: not done Back Exam: normal inspection, normal range of motion, CVA tenderness Extremity Exam: normal inspection, normal range of motion, pelvis stable Neurologic Exam: alert, 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, cooperative, field instructor II-XII nml as tested, depressed mood/affect Skin Exam: normal color, warm Lymphatic Exam: No adenopathy SpO2 Interpretation: normal SpO2: 96 O2 Delivery: Room Air <EDWIN JOINER - Last Filed: 09/01/18 18:55> - Nursing Vital Signs Nursing Vital Signs: Initial Vital Signs Pulse Rate 90 09/01/18 18:14 Respiratory Rate 16 09/01/18 18:14 Blood Pressure 139/93 09/01/18 18:14 O2 Sat by Pulse Oximetry 96 09/01/18 18:14 Pain Scale Pain Intensity 10 - Course Nursing assessment & vital signs reviewed: Yes EKG Interpreted by Me: RATE (90), Sinus Rhythm, NORMAL AXIS, Right Bundle Branch Block (incomplete and new.), Other (new incomplete rbbb compared to ekg dated 01/03/17) <EDWIN JOINER - Last Filed: 09/01/18 18:55> - Radiology Exams Chest X-ray Interpretation: Discussed w/ radiologist (no acute disease process noted) <REECE LOAIZA - Last Filed: 09/01/18 20:45> Ordered Tests: Active Orders 24 hr Category Date Time Status Clean Catch Urine Specimen STAT Care 09/01/18 18:52 Active EKG-ER Only STAT Care 09/01/18 18:52 Active IV Insertion STAT Care 09/01/18 18:52 Active BLOOD CULTURE Stat Lab 09/01/18 20:32 Ordered CMP Stat Lab 09/01/18 19:00 Completed Lactic Acid Stat Lab 09/01/18 18:52 Completed NT PRO BNP Stat Lab 09/01/18 19:00 Completed TROPONIN Q3H Lab 09/01/18 19:00 Completed TROPONIN Q3H Lab 09/01/18 22:00 Ordered TROPONIN Q3H Lab 09/02/18 01:00 Ordered TROPONIN Q3H Lab 09/02/18 04:00 Ordered TROPONIN Q3H Lab 09/02/18 07:00 Ordered UA W/RFX UR CULTURE Stat Lab 09/01/18 19:24 Completed Medication Summary Discontinued Medications Generic Name Dose Route Start Last Admin Trade Name Freq PRN Reason Stop Dose Admin Hydrocodone Bitart/Acetaminophen 15 ml 09/01/18 18:54 09/01/18 18:59 Hydrocodone-Acetamin 2.5-108/5 Ml Solution PO 09/01/18 18:55 15 ml STAT STA Administration Hydrocodone Bitart/Acetaminophen Confirm 09/01/18 18:57 Hydrocodone-Acetamin 2.5-108/5 Ml Solution Administered 09/01/18 18:58 Dose 15 ml .ROUTE .STK-MED ONE Sodium Chloride 1,000 mls @ 999 mls/hr 09/01/18 18:52 09/01/18 18:59 Sodium Chloride 0.9% 1000 Ml IV 09/01/18 19:52 999 mls/hr .Q1H1M STA Administration Sodium Chloride Confirm 09/01/18 18:57 Sodium Chloride 0.9% 1000 Ml Administered 09/01/18 18:58 Dose 1,000 mls @ ud .ROUTE .STK-MED ONE Ondansetron HCl 4 mg 09/01/18 18:54 09/01/18 18:59 Zofran 4 Mg/2 Ml Vial IV 09/01/18 18:55 4 mg STAT ONE Administration Ondansetron HCl Confirm 09/01/18 18:57 Zofran 4 Mg/2 Ml Vial Administered 09/01/18 18:58 Dose 4 mg .ROUTE .STK-MED ONE Lab/Rad Data: Laboratory Result Diagrams 09/01/18 19:00 Laboratory Results 09/01/18 09/01/18 09/01/18 Range/Units 19:24 19:00 19:00 Sodium 139 (137-145) mmol/L Potassium 4.2 (3.5-5.1) mmol/L Chloride 100 (98-107) mmol/L Carbon Dioxide 30 (22-30) mmol/L Anion Gap 12.9 (5-15) MEQ/L BUN 15 (9-20) mg/dL Creatinine 0.93 (0.66-1.25) mg/dL Estimated GFR > 60.0 ML/MIN Glucose 225 H (74-106) mg/dL Lactic Acid (0.4-2.0) Calcium 9.5 (8.4-10.2) mg/dL Total Bilirubin 0.50 (0.2-1.3) mg/dL AST 15 L (17-59) U/L ALT 20 (0-50) U/L Alkaline Phosphatase 90 (38-126) U/L Troponin I < 0.012 (0.000-0.034) ng/mL NT-Pro-B Natriuret Pep 104 (0-900) pg/mL Serum Total Protein 7.1 (6.3-8.2) g/dL Albumin 3.9 (3.5-5.0) g/dL Urine Color YELLOW (YELLOW) Urine Appearance CLEAR (CLEAR) Urine pH 5.0 (5-6) Ur Specific [place] 1.023 (1.005-1.025) Urine Protein NEGATIVE (Negative) Urine Ketones NEGATIVE (NEGATIVE) Urine Blood NEGATIVE (0-5) Arpan/ul Urine Nitrite NEGATIVE (NEGATIVE) Urine Bilirubin NEGATIVE (NEGATIVE) Urine Urobilinogen NEGATIVE (0-1) mg/dL Ur Leukocyte Esterase NEGATIVE (NEGATIVE) Urine WBC (Auto) NONE (0-5) /HPF Urine RBC (Auto) NONE (0-2) /HPF U Epithel Cells (Auto) NONE (FEW) /HPF Urine Bacteria (Auto) NONE (NEGATIVE) /HPF Urine Mucus (Auto) SLIGHT (NEGATIVE) /HPF Urine Culture Reflexed NO (NO) Urine Glucose NEGATIVE (NEGATIVE) mg/dL 09/01/18 Range/Units 18:52 Sodium (137-145) mmol/L Potassium (3.5-5.1) mmol/L Chloride (98-107) mmol/L Carbon Dioxide (22-30) mmol/L Anion Gap (5-15) MEQ/L BUN (9-20) mg/dL Creatinine (0.66-1.25) mg/dL Estimated GFR ML/MIN Glucose (74-106) mg/dL Lactic Acid 1.6 (0.4-2.0) Calcium (8.4-10.2) mg/dL Total Bilirubin (0.2-1.3) mg/dL AST (17-59) U/L ALT (0-50) U/L Alkaline Phosphatase (38-126) U/L Troponin I (0.000-0.034) ng/mL NT-Pro-B Natriuret Pep (0-900) pg/mL Serum Total Protein (6.3-8.2) g/dL Albumin (3.5-5.0) g/dL Urine Color (YELLOW) Urine Appearance (CLEAR) Urine pH (5-6) Ur Specific [place] (1.005-1.025) Urine Protein (Negative) Urine Ketones (NEGATIVE) Urine Blood (0-5) Arpan/ul Urine Nitrite (NEGATIVE) Urine Bilirubin (NEGATIVE) Urine Urobilinogen (0-1) mg/dL Ur Leukocyte Esterase (NEGATIVE) Urine WBC (Auto) (0-5) /HPF Urine RBC (Auto) (0-2) /HPF U Epithel Cells (Auto) (FEW) /HPF Urine Bacteria (Auto) (NEGATIVE) /HPF Urine Mucus (Auto) (NEGATIVE) /HPF Urine Culture Reflexed (NO) Urine Glucose (NEGATIVE) mg/dL <EDWIN JOINER - Last Filed: 09/01/18 18:55> - Progress Progress: improved <REECE LOAIZA - Last Filed: 09/01/18 20:45> - Progress Progress Note: during obtaining hx and pe, i believe i upset pt. my personality typically with patients, is positive, happy and teasing in an attempt to put pts and family at ease. this time it appear as though it was more upsetting to him. i apologized to pt and his spouse. 09/01/18 18:[address] loaiza. he accepts pt 09/01/18 18:55 (EDWIN JOINER) 09/01/18 20:40 58-year-old white male with history of arrhythmia, high blood pressure, pneumonia, sleep apnea, diabetes type 2, hypothyroidism, atrial fibrillation Patient initially seen by [facility] with complaint of a sore throat extreme malaise Patient said that he was aching all over. Patient was noted to have a white count of 20,000 strep and flu were negative chest x-ray was ordered by [facility] which was remarkable for no acute disease process noted. Patient arrives with complaint of general malaise he was given IV fluids , and seen by Dr. Joiner Patient improved but still complaining of general malaise he states he aches all over On physical examination patient is alert oriented 3. Head is atraumatic, normocephalic eyes PERRLA EOMI fundi are unremarkable. Ears TMs mejia intact bilaterally. Nose is clear throat is clear neck is supple. Lungs are clear. Heart regular rate and rhythm without murmur. Abdomen soft nontender nondistended positive bowel sounds. Extremities full range of motion pulse equal symmetrical 2 over 4. Neuro cranial nerves II through XII are intact DTRs symmetrical 2 over 4 Howard Coma Scale is 15. EKG sinus rhythm 90 bpm normal axis incomplete right bundle branch block. Chest x-ray no acute disease process noted. Patient's chemistry sodium 139 potassium 4.2 chloride 100 bicarbonate 30 BUN 15 creatinine 0.93 glucose 225 lactate 1.6 CBC white blood cell 20.0 hemoglobin 15.5 hematocrit 46.9 platelets 319 Urinalysis unremarkable Troponin less than 0.012 Impression general malaise, sore throat, leukocytosis Plan case is discussed with Dr. Mcneill will go ahead and sure that blood cultures have been obtained and go ahead and start patient on Rocephin [address] patient on telemetry, observation. Will go ahead and provide IV normal saline for hydration. (REECE LOAIZA) <EDWIN JOINER - Last Filed: 09/01/18 18:55> - Departure Departure Disposition: Observation Critical Care Time: No <REECE LOAIZA - Last Filed: 09/01/18 20:45> - Departure Clinical Impression: Sore throat, general malaise, Myalgia Leukocytosis Qualifiers: Leukocytosis type: unspecified Qualified Code(s): D72.829 - Elevated white blood cell count, unspecified Condition: Fair Referrals: FEDERICA MCNEILL [Primary Care Provider] -
[2018-09-01] MEDS ORDERED: Sodium Chloride 0.9% 1000 ML 1,000 ML IV STA (18:52)
[2018-09-01] MEDS ORDERED: Zofran 4 MG/2 ML VIAL IV ONE (18:54)
[2018-09-01] MEDS ORDERED: HYDROCODONE-ACETAMIN 2.5-108/5 ML SOLUTION PO STA (18:54)
[2018-09-01] MEDS ORDERED: HYDROCODONE-ACETAMIN 2.5-108/5 ML SOLUTION ONE (18:57)
[2018-09-01] MEDS ORDERED: Sodium Chloride 0.9% 1000 ML 1,000 ML ONE (18:57)
[2018-09-01] MEDS ORDERED: Zofran 4 MG/2 ML VIAL ONE (18:57)
[2018-09-01 19:34] LABS: Appearance CLEAR (CLEAR); Bilirubin NEGATIVE (NEGATIVE); Blood NEGATIVE Ery/ul (0-5); Glucose NEGATIVE (NEGATIVE); Ketones NEGATIVE (NEGATIVE); Leukocyte Esterase NEGATIVE (NEGATIVE); Mucus SLIGHT /HPF (NEGATIVE); Nitrite NEGATIVE (NEGATIVE); Protein,Urine Dip NEGATIVE (Negative); Specific Gravity 1.023 (1.005-1.025); Urobilinogen NEGATIVE mg/dL (0-1)
[2018-09-01 19:34] LABS: ALBUMIN 3.9 g/dL (3.5-5.0); ALKALINE PHOSPHATASE 90 U/L (38-126); ANION GAP 12.9 MEQ/L (5-15); BLOOD UREA NITROGEN 15 mg/dL (9-20); CHLORIDE 100 mmol/L (98-107); Calcium 9.5 mg/dL (8.4-10.2); Carbon Dioxide 30 mmol/L (22-30); Creatinine 1 0.93 mg/dL (0.66-1.25); Glucose 225 mg/dL (74-106); NT PRO BNP 104 pg/mL (0-900); Potassium 4.2 mmol/L (3.5-5.1); SGOT/AST 15 U/L (17-59); SGPT/ALT 20 U/L (0-50); SODIUM 139 mmol/L (137-145); Total Protein 7.1 g/dL (6.3-8.2)
[2018-09-01] MEDS ORDERED: ROCEPHIN 1 Gm-D5w 50 ml Bag** 1 G/50 ML IVPB IV STA (20:46)
[2018-09-01] MEDS ORDERED: ROCEPHIN 1 Gm-D5w 50 ml Bag** 1 G/50 ML IVPB IV ONE (21:05)
[2018-09-01] MEDS ORDERED: CHLORASEPTIC SPRAY 180 ML PO PRN (23:35)
[2018-09-01] MEDS ORDERED: ELIQUIS 2.5 MG TABLET PO ONE (23:40)
[2018-09-01] MEDS ORDERED: Lopressor 25MG Tab PO ONE (23:40)
[2018-09-01] MEDS: Tessalon Perles 100 MG PO PRN (23:47)
[2018-09-01] MEDS: NORCO 5/325 MG PO PRN (23:47)
[2018-09-01] MEDS: NovoLOG Insulin SQ PRN (23:48)
[2018-09-02] MEDS: Sodium Chloride 0.9% 1000 ML 1,000 ML IV SCH ×3 (01:40→20:32)
[2018-09-02] MEDS: Tessalon Perles 100 MG PO PRN ×4 (04:30→22:39)
[2018-09-02] MEDS: NORCO 5/325 MG PO PRN ×4 (04:38→20:23)
[2018-09-02 05:14] LABS: BASOPHIL % 0.3 % (0.0-0.4); Basophil (Absolute #) 0.04 (0-0.4); Eosinophil % 3.8 % (0.00-5.0); Eosinophil (Absolute #) 0.57 (0-0.5); Granulocyte Absolute (ANC) 11.23 (1.4-6.9); Hematocrit 43.3 % (42-50); Hemoglobin 14.2 gm/dl (12.5-18.0); Lymphocyte (Absolute #) 1.77 (1.0-4.6); Lymphocytes % 11.8 % (24.0-44.0); Mean Cell Volume 93.9 fl (78-100); Mean Corpuscular Hemoglobin 30.8 pg (26-32); Mean Corpuscular Hgb Concent. 32.8 g/dl (32-36); Mean Platelet Volume 10.4 fl (6-9.5); Monocyte (Absolute #) 1.37 (0.0-1.3); Monocytes % 9.1 % (0.0-12.0); Platelet Count 266 K/mm3 (150-450); Red Blood Count 4.61 M/mm3 (4.1-5.6); Red Cell Distribution Width 13.8 % (11.5-14.0)
[2018-09-02 05:31] LABS: ALBUMIN 3.5 g/dL (3.5-5.0); ALKALINE PHOSPHATASE 86 U/L (38-126); ANION GAP 10.9 MEQ/L (5-15); BLOOD UREA NITROGEN 12 mg/dL (9-20); CHLORIDE 101 mmol/L (98-107); Calcium 8.7 mg/dL (8.4-10.2); Carbon Dioxide 29 mmol/L (22-30); Creatinine 1 0.82 mg/dL (0.66-1.25); Glucose 208 mg/dL (74-106); Potassium 3.6 mmol/L (3.5-5.1); SGOT/AST 17 U/L (17-59); SGPT/ALT 17 U/L (0-50); SODIUM 138 mmol/L (137-145); Total Protein 6.5 g/dL (6.3-8.2)
--- NOTE | 2018-09-02 08:57 | PCM.HP ---
History of Present Illness - Chief Complaint Chief Complaint: Throat pain, Leukocytosis, Malaise History of Present Illness: is a 58 year old male pt of mine from [facility] with hypothyroidism, afib , Dm, and morbid obesity who was admitted through ER yesterday with leukocytosis and malaise. He had been feeling poorly x 2d; had sinus congestion and drainage, with sore throat. Denies vomiting. Had some fever. Decreased po intake. Yesterday he suddenly felt much worse and came to , was found to have WBC 20,000. Neg CXR. Neg strep and flu swabs. Was given IM steroid. Went to ER and was given rocephin in the IV. Still feeling fatigued this morning. - Review of Systems Constitutional: Fever, Fatigue Ears, Nose, & Throat: Nose Congestion, Nose Discharge, Sinus Drainage, Throat Pain Respiratory: Cough, No Short Of Breath Musculoskeletal: Arthralgias Psychological: Depression, No Suicidal Ideations All Other Systems: Reviewed and Negative Medications & Allergies Home Medications: Home Medication List Furosemide 40 mg [Lasix 40 MG] 80 mg PO DAILY 07/01/16 [History Confirmed 09/01/18] Apixaban [Eliquis 5 mg Tablet] 5 mg PO BID 09/11/17 [History Confirmed ] Metoprolol Tartrate 25 mg PO BID 09/11/17 [History Confirmed 09/01/18] Thyroid,Pork [[place] Thyroid] 120 mg PO DAILY 09/11/17 [History Confirmed ] Citalopram Hydrobromide [Citalopram HBr] 10 mg PO DAILY 07/06/18 [History Confirmed 09/01/18] Metformin HCl 500 mg [Glucophage 500 MG] 500 mg PO BID 07/06/18 [History Confirmed 09/01/18] Chlorpheniramine Maleate [Chlortabs] 4 mg PO QHS 09/01/18 [History Confirmed ] Allergies/Adverse Reactions: Allergies Allergy/AdvReac Type Severity Reaction Status Date / Time Penicillins Allergy Hives Verified 09/01/18 18:22 - Past Medical History Past Medical History: Yes Neurological History: No Pertinent History ENT History: No Pertinent History Cardiac History: Arrhythmia, Hypertension Respiratory History: Sleep Apnea Endocrine Medical History: Diabetes Type II, Hypothyroidism Musculoskelatal History: No Pertinent History GI Medical History: No Pertinent History History: No Pertinent History Pyscho-Social History: No Pertinent History Male Reproductive Disorders: No Pertinent History Comment: hx AFIB - Past Surgical History Past Surgical History: Yes Neuro Surgical History: No Pertinent History Cardiac History: No Pertinent History Respiratory Surgery: No Pertinent History GI Surgical History: Hernia Repair Genitourinary Surgical Hx: Kidney Surgery Musculskeletal Surgical Hx: Orthopedic Surgery Male Surgical History: No Pertinent History Other Surgical History: nasal, left knee scope, kidney stones removed - Social History Smoking Status: Never smoker Exposure to second hand smoke: No Alcohol: None Drug Use: none - Physical Exam Vital Signs: Vital Signs - 24 hr Temp Pulse Resp BP Pulse Ox 09/02/18 07:38 98.5 F 72 19 121/67 93 L 09/02/18 07:28 93 L 09/02/18 04:00 98.7 F 78 18 129/72 91 L 09/01/18 22:53 98.8 F 80 16 115/60 95 09/01/18 22:02 97 09/01/18 20:18 99.8 F 09/01/18 20:04 84 16 116/71 95 09/01/18 18:58 96 09/01/18 18:14 90 16 139/93 96 General Appearance: no apparent distress, other (fatigued; better with conversation) Neurologic Exam: 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, cooperative Eye Exam: eyes nml inspection Ears, Nose, Throat Exam: moist mucous membranes, other (maxillary and frontal sinuses nttp) Neck Exam: normal inspection, non-tender, No lymphadenopathy Respiratory Exam: normal breath sounds, No crackles/rales, No rhonchi Cardiovascular Exam: regular rate/rhythm, normal heart sounds, No murmur Gastrointestinal/Abdomen Exam: soft, normal bowel sounds, No tenderness, No distention, No mass, No guarding, No rebound Back Exam: normal inspection, No rash Extremity Exam: swelling (trace pretibial edema on RLE) Skin Exam: normal color, warm, dry, No rash Results - Labs Lab/Micro Results: Accuchecks Date 09/02/18 Time 07:26 Accucheck Value: 210 Lab Results-Last 24 Hours 09/01/18 09/01/18 09/01/18 Range/Units 18:52 19:00 19:00 WBC (4.0-10.5) K/mm3 RBC (4.1-5.6) M/mm3 Hgb (12.5-18.0) gm/dl Hct (42-50) % MCV (78-100) fl MCH (26-32) pg MCHC (32-36) g/dl RDW (11.5-14.0) % Plt Count (150-450) K/mm3 MPV (6-9.5) fl Gran % (36.0-66.0) % Eos # (Auto) (0-0.5) Absolute Lymphs (auto) (1.0-4.6) Absolute Monos (auto) (0.0-1.3) Lymphocytes % (24.0-44.0) % Monocytes % (0.0-12.0) % Eosinophils % (0.00-5.0) % Basophils % (0.0-0.4) % Absolute Granulocytes (1.4-6.9) Basophils # (0-0.4) Sodium 139 (137-145) mmol/L Potassium 4.2 (3.5-5.1) mmol/L Chloride 100 (98-107) mmol/L Carbon Dioxide 30 (22-30) mmol/L Anion Gap 12.9 (5-15) MEQ/L BUN 15 (9-20) mg/dL Creatinine 0.93 (0.66-1.25) mg/dL Estimated GFR > 60.0 ML/MIN Glucose 225 H (74-106) mg/dL Lactic Acid 1.6 (0.4-2.0) Calcium 9.5 (8.4-10.2) mg/dL Total Bilirubin 0.50 (0.2-1.3) mg/dL AST 15 L (17-59) U/L ALT 20 (0-50) U/L Alkaline Phosphatase 90 (38-126) U/L Troponin I < 0.012 (0.000-0.034) ng/mL NT-Pro-B Natriuret Pep 104 (0-900) pg/mL Serum Total Protein 7.1 (6.3-8.2) g/dL Albumin 3.9 (3.5-5.0) g/dL Urine Color (YELLOW) Urine Appearance (CLEAR) Urine pH (5-6) Ur Specific [place] (1.005-1.025) Urine Protein (Negative) Urine Ketones (NEGATIVE) Urine Blood (0-5) Arpan/ul Urine Nitrite (NEGATIVE) Urine Bilirubin (NEGATIVE) Urine Urobilinogen (0-1) mg/dL Ur Leukocyte Esterase (NEGATIVE) Urine WBC (Auto) (0-5) /HPF Urine RBC (Auto) (0-2) /HPF U Epithel Cells (Auto) (FEW) /HPF Urine Bacteria (Auto) (NEGATIVE) /HPF Urine Mucus (Auto) (NEGATIVE) /HPF Urine Culture Reflexed (NO) Urine Glucose (NEGATIVE) mg/dL Monoscreen (Negative) 09/01/18 09/01/18 09/01/18 Range/Units 19:00 19:24 22:00 WBC (4.0-10.5) K/mm3 RBC (4.1-5.6) M/mm3 Hgb (12.5-18.0) gm/dl Hct (42-50) % MCV (78-100) fl MCH (26-32) pg MCHC (32-36) g/dl RDW (11.5-14.0) % Plt Count (150-450) K/mm3 MPV (6-9.5) fl Gran % (36.0-66.0) % Eos # (Auto) (0-0.5) Absolute Lymphs (auto) (1.0-4.6) Absolute Monos (auto) (0.0-1.3) Lymphocytes % (24.0-44.0) % Monocytes % (0.0-12.0) % Eosinophils % (0.00-5.0) % Basophils % (0.0-0.4) % Absolute Granulocytes (1.4-6.9) Basophils # (0-0.4) Sodium (137-145) mmol/L Potassium (3.5-5.1) mmol/L Chloride (98-107) mmol/L Carbon Dioxide (22-30) mmol/L Anion Gap (5-15) MEQ/L BUN (9-20) mg/dL Creatinine (0.66-1.25) mg/dL Estimated GFR ML/MIN Glucose (74-106) mg/dL Lactic Acid (0.4-2.0) Calcium (8.4-10.2) mg/dL Total Bilirubin (0.2-1.3) mg/dL AST (17-59) U/L ALT (0-50) U/L Alkaline Phosphatase (38-126) U/L Troponin I < 0.012 (0.000-0.034) ng/mL NT-Pro-B Natriuret Pep (0-900) pg/mL Serum Total Protein (6.3-8.2) g/dL Albumin (3.5-5.0) g/dL Urine Color YELLOW (YELLOW) Urine Appearance CLEAR (CLEAR) Urine pH 5.0 (5-6) Ur Specific [place] 1.023 (1.005-1.025) Urine Protein NEGATIVE (Negative) Urine Ketones NEGATIVE (NEGATIVE) Urine Blood NEGATIVE (0-5) Arpan/ul Urine Nitrite NEGATIVE (NEGATIVE) Urine Bilirubin NEGATIVE (NEGATIVE) Urine Urobilinogen NEGATIVE (0-1) mg/dL Ur Leukocyte Esterase NEGATIVE (NEGATIVE) Urine WBC (Auto) NONE (0-5) /HPF Urine RBC (Auto) NONE (0-2) /HPF U Epithel Cells (Auto) NONE (FEW) /HPF Urine Bacteria (Auto) NONE (NEGATIVE) /HPF Urine Mucus (Auto) SLIGHT (NEGATIVE) /HPF Urine Culture Reflexed NO (NO) Urine Glucose NEGATIVE (NEGATIVE) mg/dL Monoscreen NEGATIVE (Negative) 09/02/18 09/02/18 09/02/18 Range/Units 01:00 04:35 04:35 WBC 15.0 H (4.0-10.5) K/mm3 RBC 4.61 (4.1-5.6) M/mm3 Hgb 14.2 (12.5-18.0) gm/dl Hct 43.3 (42-50) % MCV 93.9 (78-100) fl MCH 30.8 (26-32) pg MCHC 32.8 (32-36) g/dl RDW 13.8 (11.5-14.0) % Plt Count 266 (150-450) K/mm3 MPV 10.4 H (6-9.5) fl Gran % 75.0 H (36.0-66.0) % Eos # (Auto) 0.57 H (0-0.5) Absolute Lymphs (auto) 1.77 (1.0-4.6) Absolute Monos (auto) 1.37 H (0.0-1.3) Lymphocytes % 11.8 L (24.0-44.0) % Monocytes % 9.1 (0.0-12.0) % Eosinophils % 3.8 (0.00-5.0) % Basophils % 0.3 (0.0-0.4) % Absolute Granulocytes 11.23 H (1.4-6.9) Basophils # 0.04 (0-0.4) Sodium (137-145) mmol/L Potassium (3.5-5.1) mmol/L Chloride (98-107) mmol/L Carbon Dioxide (22-30) mmol/L Anion Gap (5-15) MEQ/L BUN (9-20) mg/dL Creatinine (0.66-1.25) mg/dL Estimated GFR ML/MIN Glucose (74-106) mg/dL Lactic Acid (0.4-2.0) Calcium (8.4-10.2) mg/dL Total Bilirubin (0.2-1.3) mg/dL AST (17-59) U/L ALT (0-50) U/L Alkaline Phosphatase (38-126) U/L Troponin I < 0.012 < 0.012 (0.000-0.034) ng/mL NT-Pro-B Natriuret Pep (0-900) pg/mL Serum Total Protein (6.3-8.2) g/dL Albumin (3.5-5.0) g/dL Urine Color (YELLOW) Urine Appearance (CLEAR) Urine pH (5-6) Ur Specific [place] (1.005-1.025) Urine Protein (Negative) Urine Ketones (NEGATIVE) Urine Blood (0-5) Arpan/ul Urine Nitrite (NEGATIVE) Urine Bilirubin (NEGATIVE) Urine Urobilinogen (0-1) mg/dL Ur Leukocyte Esterase (NEGATIVE) Urine WBC (Auto) (0-5) /HPF Urine RBC (Auto) (0-2) /HPF U Epithel Cells (Auto) (FEW) /HPF Urine Bacteria (Auto) (NEGATIVE) /HPF Urine Mucus (Auto) (NEGATIVE) /HPF Urine Culture Reflexed (NO) Urine Glucose (NEGATIVE) mg/dL Monoscreen (Negative) 09/02/18 09/02/18 Range/Units 04:35 07:00 WBC (4.0-10.5) K/mm3 RBC (4.1-5.6) M/mm3 Hgb (12.5-18.0) gm/dl Hct (42-50) % MCV (78-100) fl MCH (26-32) pg MCHC (32-36) g/dl RDW (11.5-14.0) % Plt Count (150-450) K/mm3 MPV (6-9.5) fl Gran % (36.0-66.0) % Eos # (Auto) (0-0.5) Absolute Lymphs (auto) (1.0-4.6) Absolute Monos (auto) (0.0-1.3) Lymphocytes % (24.0-44.0) % Monocytes % (0.0-12.0) % Eosinophils % (0.00-5.0) % Basophils % (0.0-0.4) % Absolute Granulocytes (1.4-6.9) Basophils # (0-0.4) Sodium 138 (137-145) mmol/L Potassium 3.6 (3.5-5.1) mmol/L Chloride 101 (98-107) mmol/L Carbon Dioxide 29 (22-30) mmol/L Anion Gap 10.9 (5-15) MEQ/L BUN 12 (9-20) mg/dL Creatinine 0.82 (0.66-1.25) mg/dL Estimated GFR > 60.0 ML/MIN Glucose 208 H (74-106) mg/dL Lactic Acid (0.4-2.0) Calcium 8.7 (8.4-10.2) mg/dL Total Bilirubin 0.70 (0.2-1.3) mg/dL AST 17 (17-59) U/L ALT 17 (0-50) U/L Alkaline Phosphatase 86 (38-126) U/L Troponin I < 0.012 (0.000-0.034) ng/mL NT-Pro-B Natriuret Pep (0-900) pg/mL Serum Total Protein 6.5 (6.3-8.2) g/dL Albumin 3.5 (3.5-5.0) g/dL Urine Color (YELLOW) Urine Appearance (CLEAR) Urine pH (5-6) Ur Specific [place] (1.005-1.025) Urine Protein (Negative) Urine Ketones (NEGATIVE) Urine Blood (0-5) Arpan/ul Urine Nitrite (NEGATIVE) Urine Bilirubin (NEGATIVE) Urine Urobilinogen (0-1) mg/dL Ur Leukocyte Esterase (NEGATIVE) Urine WBC (Auto) (0-5) /HPF Urine RBC (Auto) (0-2) /HPF U Epithel Cells (Auto) (FEW) /HPF Urine Bacteria (Auto) (NEGATIVE) /HPF Urine Mucus (Auto) (NEGATIVE) /HPF Urine Culture Reflexed (NO) Urine Glucose (NEGATIVE) mg/dL Monoscreen (Negative) Accuchecks Date 09/02/18 Time 07:26 Accucheck Value: 210 Assessment/Plan (1) Pneumonia Current Visit: No Status: Acute Qualifiers: Pneumonia type: due to unspecified organism Laterality: unspecified laterality Lung location: unspecified part of lung Qualified Code(s): J18.9 - Pneumonia, unspecified organism Assessment & Plan: add zithromax Code(s): J18.9 - PNEUMONIA, UNSPECIFIED ORGANISM (2) Diabetes mellitus Current Visit: Yes Status: Acute Qualifiers: Diabetes mellitus type: type 2 Diabetes mellitus penitentiary insulin use: without vermin exterminator use Diabetes mellitus complication status: without complication Qualified Code(s): E11.9 - Type 2 diabetes mellitus without complications Code(s): E11.9 - TYPE 2 DIABETES MELLITUS WITHOUT COMPLICATIONS (3) Hypothyroid Current Visit: Yes Status: Acute Qualifiers: Hypothyroidism type: acquired Qualified Code(s): E03.9 - Hypothyroidism, unspecified Assessment & Plan: recheck TSH Code(s): E03.9 - HYPOTHYROIDISM, UNSPECIFIED (4) Leukocytosis Current Visit: Yes Status: Acute Qualifiers: Leukocytosis type: unspecified Qualified Code(s): D72.829 - Elevated white blood cell count, unspecified Assessment & Plan: improved. recheck in a.m. Code(s): D72.829 - ELEVATED WHITE BLOOD CELL COUNT, UNSPECIFIED (5) Sore throat Current Visit: Yes Status: Acute Code(s): J02.9 - ACUTE PHARYNGITIS, UNSPECIFIED (6) Fatigue Current Visit: No Status: Chronic Qualifiers: Fatigue type: chronic, unspecified Qualified Code(s): R53.82 - Chronic fatigue, unspecified Assessment & Plan: worse due to current illness Code(s): R53.83 - OTHER FATIGUE
[2018-09-02] MEDS: ELIQUIS 2.5 MG TABLET PO SCH ×2 (09:44→22:38)
[2018-09-02] MEDS: Lopressor 25MG Tab PO SCH ×2 (09:44→22:39)
[2018-09-02] MEDS ORDERED: MEDICATION INTERVENTION PO SCH (09:45)
[2018-09-02] MEDS ORDERED: ceLEXa 20 MG PO SCH (10:00)
[2018-09-02] MEDS ORDERED: THYROID PORK 120 MG PO SCH (10:00)
[2018-09-02] MEDS ORDERED: Zithromax 500 MG/ 250 ML NaCl Premix 500 MG/250 ML IVPB IV SCH (10:00)
[2018-09-02] MEDS ORDERED: NON-FORMULARY ITEM (Apixaban*** [Eliquis 5 Mg Tablet***] 5 MG) PO SCH (10:00)
[2018-09-02] MEDS: NovoLOG Insulin SQ PRN (12:07)
[2018-09-02] MEDS ORDERED: ROCEPHIN 1 Gm-D5w 50 ml Bag** 1 G/50 ML IVPB IV SCH (22:00)
[2018-09-02] MEDS ORDERED: ELIQUIS 2.5 MG TABLET PO ONE (23:40)
[2018-09-03 05:15] LABS: BASOPHIL % 0.4 % (0.0-0.4); Basophil (Absolute #) 0.06 (0-0.4); Eosinophil % 5.6 % (0.00-5.0); Eosinophil (Absolute #) 0.76 (0-0.5); Granulocyte Absolute (ANC) 9.45 (1.4-6.9); Granulocytes % 69.9 % (36.0-66.0); Hemoglobin 13.3 gm/dl (12.5-18.0); Lymphocyte (Absolute #) 2.05 (1.0-4.6); Lymphocytes % 15.2 % (24.0-44.0); Mean Cell Volume 93.7 fl (78-100); Mean Corpuscular Hemoglobin 31.1 pg (26-32); Mean Corpuscular Hgb Concent. 33.3 g/dl (32-36); Monocytes % 8.9 % (0.0-12.0); Platelet Count 244 K/mm3 (150-450); Red Blood Count 4.27 M/mm3 (4.1-5.6); Red Cell Distribution Width 13.8 % (11.5-14.0); White Blood Count 13.5 K/mm3 (4.0-10.5)
[2018-09-03 05:29] LABS: ANION GAP 7.6 MEQ/L (5-15); BLOOD UREA NITROGEN 11 mg/dL (9-20); CHLORIDE 104 mmol/L (98-107); Calcium 8.4 mg/dL (8.4-10.2); Carbon Dioxide 27 mmol/L (22-30); Creatinine 1 0.75 mg/dL (0.66-1.25); Glucose 204 mg/dL (74-106); Potassium 3.8 mmol/L (3.5-5.1); SODIUM 135 mmol/L (137-145)
[2018-09-03 07:36] VITALS: BP 123/78; PULSE 70; O2SAT 95
--- NOTE | 2018-09-03 09:01 | PCM.DS ---
Discharge Summary Date of Admission: 09/01/18 21:41 Admitting Physician: FEDERICA DAVILA Primary Care Provider: FEDERICA DAVILA Allergies Allergies Penicillins Allergy (Verified 09/01/18 18:22) [facility] Summary - Hospital Course Hospital Course: Pt is 58 yo male pt of mine from [facility] with obesity, hypothyroid, DM who was admitted for pneumonia with WBC 20,000. CXR was clear but he clinically had cough and sinus congestion. Started on IV rocephin with some improvement; added zithromax. He is feeling better today, tato po. He is coughing up sputum. Will d/c to home on po omnicef and zithromax. - Vitals & Intake/Output Vital Signs: Vital Signs Temperature 99.1 F 09/03/18 07:36 Pulse Rate 70 09/03/18 07:36 Respiratory Rate 20 09/03/18 07:36 Blood Pressure 123/78 09/03/18 07:36 O2 Sat by Pulse Oximetry 95 09/03/18 07:36 Oxygen-Last Documented O2 Percentage 3 Liters = 32% Intake & Output: Intake & Output 08/31/18 09/01/18 09/02/18 09/03/18 11:59 11:59 11:59 11:59 Intake Total 1023 2518 Balance 1023 2518 Weight 162 kg 165.8 kg - Lab Result Diagrams: 09/03/18 04:55 09/03/18 04:55 Lab Results-Last 24 Hrs: Accuchecks Date 09/03/18 Date 09/02/18 Date 09/02/18 Time 07:19 Time 16:49 Time 12:02 Accucheck Value: 204 Accucheck Value: 203 Accucheck Value: 253 Lab Results-Last 24 Hours 09/02/18 09/03/18 09/03/18 Range/Units 09:03 04:55 04:55 WBC 13.5 H (4.0-10.5) K/mm3 RBC 4.27 (4.1-5.6) M/mm3 Hgb 13.3 (12.5-18.0) gm/dl Hct 40.0 L (42-50) % MCV 93.7 (78-100) fl MCH 31.1 (26-32) pg MCHC 33.3 (32-36) g/dl RDW 13.8 (11.5-14.0) % Plt Count 244 (150-450) K/mm3 MPV 10.0 H (6-9.5) fl Gran % 69.9 H (36.0-66.0) % Eos # (Auto) 0.76 H (0-0.5) Absolute Lymphs (auto) 2.05 (1.0-4.6) Absolute Monos (auto) 1.20 (0.0-1.3) Lymphocytes % 15.2 L (24.0-44.0) % Monocytes % 8.9 (0.0-12.0) % Eosinophils % 5.6 H (0.00-5.0) % Basophils % 0.4 (0.0-0.4) % Absolute Granulocytes 9.45 H (1.4-6.9) Basophils # 0.06 (0-0.4) Sodium 135 L (137-145) mmol/L Potassium 3.8 (3.5-5.1) mmol/L Chloride 104 (98-107) mmol/L Carbon Dioxide 27 (22-30) mmol/L Anion Gap 7.6 (5-15) MEQ/L BUN 11 (9-20) mg/dL Creatinine 0.75 (0.66-1.25) mg/dL Estimated GFR > 60.0 ML/MIN Glucose 204 H (74-106) mg/dL Calcium 8.4 (8.4-10.2) mg/dL TSH 3rd Generation 1.200 (0.47-4.68) mIU/L Micro Results-Entire Visit: Accuchecks Date 09/03/18 Date 09/02/18 Date 09/02/18 Time 07:19 Time 16:49 Time 12:02 Accucheck Value: 204 Accucheck Value: 203 Accucheck Value: 253 - Procedures and Test Procedures and Tests throughout Hospitalization: Therapy Orders & Screens 09/03/18 04:15 Oxygen Nasal Cannula 3 lpm Comment: Diagnosis: Throat pain, Leukocytosis, Malaise 09/03/18 04:21 Respiratory Therapy Assessment DAILY Comment: Diagnosis: Throat pain, Leukocytosis, Malaise Discharge Exam General Appearance: no apparent distress, alert, obese Neurologic Exam: 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, cooperative Skin Exam: normal color, warm, dry, No rash Ears, Nose, Throat Exam: moist mucous membranes Neck Exam: normal inspection Respiratory Exam: normal breath sounds, lungs clear, No crackles/rales, No rhonchi, No wheezing Cardiovascular Exam: regular rate/rhythm, normal heart sounds, No murmur Extremity Exam: normal inspection, No pedal edema, No swelling Back Exam: normal inspection, No rash Final Diagnosis/Problem List - Final Discharge Diagnosis/Problem (1) Pneumonia Current Visit: No Status: Acute Assessment & Plan: Doing better. WB 13.5 now, down from 20,000. Home on po omnicef and zithromax. Code(s): J18.9 - PNEUMONIA, UNSPECIFIED ORGANISM (2) Diabetes mellitus Current Visit: Yes Status: Chronic Code(s): E11.9 - TYPE 2 DIABETES MELLITUS WITHOUT COMPLICATIONS (3) Hypothyroid Current Visit: Yes Status: Chronic Code(s): E03.9 - HYPOTHYROIDISM, UNSPECIFIED (4) Leukocytosis Current Visit: Yes Status: Chronic Code(s): D72.829 - ELEVATED WHITE BLOOD CELL COUNT, UNSPECIFIED (5) Sore throat Current Visit: Yes Status: Resolved Code(s): J02.9 - ACUTE PHARYNGITIS, UNSPECIFIED (6) Fatigue Current Visit: No Status: Chronic Code(s): R53.83 - OTHER FATIGUE - Discharge Disposition: Home, Self-Care Condition: Good Prescriptions: New Cefdinir 300 mg PO BID #14 capsule Azithromycin [Zithromax] 250 mg PO DAILY 3 Days tablet Continue Furosemide 40 mg [Lasix 40 MG] 80 mg PO DAILY Thyroid,Pork [[place] Thyroid] 120 mg PO DAILY Metoprolol Tartrate 25 mg PO BID Apixaban [Eliquis 5 mg Tablet] 5 mg PO BID Metformin HCl 500 mg [Glucophage 500 MG] 500 mg PO BID Citalopram Hydrobromide [Citalopram HBr] 10 mg PO DAILY Chlorpheniramine Maleate [Chlortabs] 4 mg PO QHS Instructions: Pneumonia in Adults Follow up with: FEDERICA DAVILA [Primary Care Provider] - 09/08/18 9:00 am
[2018-09-03] MEDS ORDERED: Mucinex 600MG ER Tabs PO SCH (10:00)
== END 2018-09-03 10:32 | disposition home or self-care (01) ==
LOC: ED 18:13 → MED SURG 21:41
PROVIDERS: ADMIT Family Medicine; ATTEND Family Medicine
DX: J18.9 Pneumonia, unspecified organism (principal); E03.9 Hypothyroidism, unspecified; E11.9 Type 2 diabetes mellitus without complications; D72.829 Elevated white blood cell count, unspecified; J02.9 Acute pharyngitis, unspecified; R53.83 Other fatigue; Z79.899 Other long term (current) drug therapy; I48.91 Unspecified atrial fibrillation; Z79.01 Long term (current) use of anticoagulants
CPT/HCPCS: 36000; 36415; 80048; 80053; 81001; 82962; 83605; 83880; 84443; 84484; 85025; 86308; 86617; 86618; 87040; 93005; 93268; 94762; 96360; 96361; 96365; 96374; 99285; G0378; J0456; J0696; J2405; A9270-GY

== ENCOUNTER 2020-10-04 05:40 | Day surgery (SDC) | payer BC ==
[2020-10-04 06:25] VITALS: O2SAT 94
[2020-10-04] MEDS ORDERED: Lactated Ringers 1,000 ML IV SCH (06:30)
[2020-10-04] MEDS ORDERED: Versed 2 MG/2 ML Injection ONE (07:35)
[2020-10-04] MEDS ORDERED: DIPRIVAN 200 MG/20 ML IV ONE (07:35)
[2020-10-04 08:25] VITALS: PULSE 69
--- NOTE | 2020-10-04 08:33 | OP ---
SURGERY DATE/TIME: 10/04/2020 0735 PREOPERATIVE DIAGNOSES: 1) Hematemesis. 2) Epigastric abdominal pain. POSTOPERATIVE DIAGNOSIS: Moderate gastritis. PROCEDURE: EGD. SURGEON: Lakhwinder Alexandre M.D. ANESTHESIA: MAC by Nicolas Sahni CRNA. ESTIMATED BLOOD LOSS: Minimal. SPECIMENS: Two cold forceps biopsies were taken from the gastric antrum. DESCRIPTION OF PROCEDURE: After informed written consent was obtained, the patient was taken to the endoscopy suite. He was placed in left lateral decubitus position and bite block was inserted. Anesthesia was titrated to the desired level of consciousness. The endoscope was inserted into the posterior oropharynx and under direct visualization the esophagus was easily traversed. There was a normal mucosal appearance free of any lesions or defects. There was a small non-sliding hiatal hernia which was clinically insignificant upon entering the gastric cavity. There was normal rugated gastric mucosa. There were multiple gastritis-type superficial erosions in the gastric antrum. No active bleeding or visible ulceration was appreciable. The duodenum had a normal mucosal appearance free of any lesions or defects. Two cold forceps biopsies were taken from the gastric antrum and sent for Helicobacter pylori testing. Upon withdrawal again all other mucosal structures appeared within normal limits. The scope was removed and the patient was transferred to the recovery room in good condition. I have advised that he hold his Eliquis for five more days to allow for healing of his biopsy site and started him on Protonix 40 mg daily and follow up in a week for pathology.
[2020-10-04 08:53] VITALS: BP 119/71
== END 2020-10-04 09:01 | disposition home or self-care (01) ==
LOC: SDC 05:40
PROVIDERS: ATTEND Family Medicine
DX: K29.70 Gastritis, unspecified, without bleeding (principal); K92.0 Hematemesis; R10.13 Epigastric pain; E11.9 Type 2 diabetes mellitus without complications; I10 Essential (primary) hypertension; Z86.79 Personal history of other diseases of the circulatory system
CPT/HCPCS: 82947; J2250; J2704

== ENCOUNTER 2020-11-23 07:21 | Day surgery (SDC) | payer BC ==
--- NOTE | 2020-11-16 08:57 | HP ---
DATE OF SURGERY: 11/23/2020 HISTORY OF PRESENT ILLNESS: The patient is a 60 year-old male who presented to the office initially with complaints of upper left abdominal pain. This has been going on for a couple of months. He states that this improves with water intake. He had an EGD with Dr. Alexandre recently that was okay. The patient had a colonoscopy about one year ago that was normal. The patient initially denied any rectal bleeding when first seen. The patient have been seen back in the office subsequently after studies ordered and lab work when apparently reported some rectal bleeding and then set up to see GI for that and to be scoped. The patient had gallbladder work up and lab work up ordered. His labs were benign. He ended up with some biliary sludge on his gallbladder ultrasound. His HIDA scan is 84%. The patient does have diastasis rectus that has not been worked on. The patient also had incidental abdominal aortic aneurysm finding of about 3 cm which we are monitoring. The patient has been somewhat of a difficult patient. He presented initially and wanted results and answers right away. We explained to the patient that removing his gallbladder is likely going to help his symptoms. However, total resolution may not occur. The patient reports his understanding and states that he wants to proceed with procedure as he has met his deductible for this year. PAST MEDICAL HISTORY: Atrial fibrillation, hypothyroidism, hypertension, diabetes, sleep apnea. PAST SURGICAL HISTORY: T&A. Nose surgery. ALLERGIES: PENICILLINS. MEDICATIONS: Lasix, Synthroid, metformin, metoprolol, Humalog. FAMILY HISTORY: None reported. SOCIAL HISTORY: None reported. REVIEW OF SYSTEMS: CONSTITUTIONAL: Denies fever or chills. CHEST: Denies shortness of breath. CVS: Denies chest pain. ABDOMEN: Reports left upper quadrant abdominal pain. Denies nausea, vomiting, diarrhea, constipation or rectal bleeding. INTEGUMENTARY: Negative. PHYSICAL EXAMINATION: GENERAL: No acute distress. CHEST: Nonlabored. No shortness of breath. CVS: Regular rate and rhythm. ABDOMEN: Soft. EXTREMITIES: No edema. NEUROLOGIC: Alert. PSYCHIATRIC: Appropriate. IMPRESSION: Biliary sludge. PLAN: Laparoscopic cholecystectomy with Dr. Brayan Pavon. As dictated by Leah Fan NP.
[~2020-11-23 07:21] MED LIST: Lactated Ringers 1,000 ML IV ONE; Sensorcaine 0.25% 10 ML ONE
[2020-11-23] MEDS ORDERED: Lactated Ringers 1,000 ML IV SCH (07:30)
[2020-11-23] MEDS ORDERED: CLINDAMYCIN-D5W 900 MG/50 ML*** 900 MG/50 ML BAG IV SCH (07:30)
[2020-11-23] MEDS ORDERED: Levofloxacin 500MG/100ML D5W 500 MG/100 ML BAG IV ONE (07:35)
[2020-11-23] MEDS ORDERED: SUBLIMAZE 100 MCG/2 ML ONE ×4 (10:09→11:55)
[2020-11-23] MEDS ORDERED: Zemuron 100 MG/10 ML ONE (10:09)
[2020-11-23] MEDS ORDERED: DIPRIVAN 200 MG/20 ML IV ONE (10:09)
[2020-11-23] MEDS ORDERED: Versed 2 MG/2 ML Injection ONE (10:09)
[2020-11-23] MEDS ORDERED: BRIDION 200MG/2ML IV ONE (10:13)
[2020-11-23] MEDS ORDERED: Quelicin Fliptop 200 MG/10 ML ONE (10:13)
[2020-11-23] MEDS ORDERED: Decadron 4 MG INJ ONE (10:17)
[2020-11-23] MEDS ORDERED: BREVIBLOC 100 MG/10 ML IV ONE (10:34)
[2020-11-23] MEDS ORDERED: TORAdol 30 mg Injection ONE (10:35)
[2020-11-23] MEDS ORDERED: Zofran 4 MG/2 ML VIAL ONE ×2 (10:35→12:02)
[2020-11-23] MEDS ORDERED: MORPHINE SULFATE 10 MG/ML ONE ×2 (11:18→11:55)
--- NOTE | 2020-11-23 11:53 | OP ---
SURGERY DATE/TIME: 11/23/2020 1012 PREOPERATIVE DIAGNOSIS: Gallbladder sludge symptomatic. POSTOPERATIVE DIAGNOSIS: Gallbladder sludge symptomatic. PROCEDURE: Laparoscopic cholecystectomy. SURGEON: Dr. Brayan Pavon. ANESTHESIA: General endotracheal tube. ESTIMATED BLOOD LOSS: None. DRAINS: None. COMPLICATIONS: None. INDICATIONS: A patient with symptomatic sludge, multiple episodes of right upper quadrant pain. Ultrasound revealing sludge. Seen and examined, procedure discussed and wished to proceed. DESCRIPTION OF PROCEDURE AND FINDINGS: Taken to surgery general anesthetic, routine prep and drape. He is morbidly obese and quite robust. Veress needle right upper quadrant. Opening pressure of 6, insufflating pressure 14. Camera inserted. Good insertion site. No suggestion of any issues. Camera is then moved down to 2 inches above the umbilicus a little off the midline to the right. A 5 placed under direct visualization. Camera is then placed there. Two additional ports one in the epigastrium just slightly to the right and one in the very far right lateral was placed. The gallbladder was covered with fat. There were adhesions of omentum this was all taken down deliberately. The infundibulum dissected. The gallbladder was then able to be elevated. The niko area was mobilized. The cystic artery was totally free. It was taken with three clips. The cystic duct had just a little surrounding tissue was totally mobile. The infundibulum was very evident. Additional 1 inch edge of gallbladder was dissected upwards. At this time it was felt prudent to take this with a stapling device. It was just slightly thick. It was taken with a vascular stapling device cut slightly towards the gallbladder side. It was still right in the middle of the cystic duct and certainly not impending on the medial structures at all. Staple line was excellent. Gallbladder rolled out of gallbladder fossa with electrocautery. No violations and then pulled out the epigastric port with widening. Hole closure device, two figure-of-8 sutures of 0 Vicryl were placed. The field was dry. The lower camera port was only an inch off the midline. I am not sure whether he has a little diastasis or not. This hole was specifically closed with 0 Vicryl. The two lateral holes were small, slightly oblique in nature. CO2 was exsufflated and the ports removed. The patient tolerated the procedure satisfactorily. Findings discussed with the and pictures were given to the .
[2020-11-23] MEDS ORDERED: Hydromorphone 1 mg/ml Injection ONE (12:02)
[2020-11-23 13:34] VITALS: O2SAT 94
[2020-11-23 14:07] VITALS: PULSE 72
[2020-11-23 14:51] VITALS: BP 136/96
== END 2020-11-23 15:20 | disposition home or self-care (01) ==
LOC: SDC 07:21
PROVIDERS: ATTEND Surgery
DX: K82.9 Disease of gallbladder, unspecified (principal); E11.9 Type 2 diabetes mellitus without complications; I10 Essential (primary) hypertension; G47.30 Sleep apnea, unspecified; Z79.899 Other long term (current) drug therapy; M62.08 Separation of muscle (nontraumatic), other site; I71.4 Abdominal aortic aneurysm, without rupture
CPT/HCPCS: 82947; J0330; J1100; J1170; J1885; J1956; J2250; J2270; J2405; J2704; J3010; L0625

== ENCOUNTER 2021-09-25 13:53 | Observation (INO) | payer BC ==
[2021-09-25 14:22] LABS: Absolute Neutrophil Ct (ANC) 9.37 (1.4-6.9); Basophil (Absolute #) 0.03 (0-0.4); Eosinophil % 1.4 % (0.00-5.0); Eosinophil (Absolute #) 0.19 (0-0.5); Hematocrit 43.7 % (42-50); Lymphocyte (Absolute #) 2.42 (1.0-4.6); Lymphocytes % 18.4 % (24.0-44.0); Mean Cell Volume 89.9 fl (78-100); Mean Corpuscular Hemoglobin 30.9 pg (26-32); Mean Corpuscular Hgb Concent. 34.3 g/dl (32-36); Monocyte (Absolute #) 1.13 (0.0-1.3); Monocytes % 8.6 % (0.0-12.0); Neutrophil % 71.4 % (36.0-66.0); Platelet Count 308 K/mm3 (150-450); Red Blood Count 4.86 M/mm3 (4.1-5.6); Red Cell Distribution Width 13.3 % (11.5-14.0); White Blood Count 13.1 K/mm3 (4.0-10.5)
--- NOTE | 2021-09-25 14:31 | ERPHSYRPT ---
- History of Present Illness Time Seen by Provider: 09/25/21 14:00 Source: patient Exam Limitations: no limitations Patient Subjective Stated Complaint: pt states "I had this numbness that started on my left side of my face and moving down my arm. 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 Symptoms started approximately 10 minutes prior to arrival. Symptoms are associated with nausea vomiting and diarrhea. No chest pain. No trauma. No fever. No rash. Symptoms are ongoing. Symptoms are moderate in intensity. No specific worsening improving factors. Patient denies history of the same. Patient voices no other complaints or concerns at this time. Timing/Duration: today Severity: moderate Modifying Factors: Improves With: nothing Associated Symptoms: nausea, vomiting, No shortness of breath, No chest pain, No fever, No loss of appetite, No syncope, No seizure, No weakness Allergies/Adverse Reactions: Penicillins Allergy (Verified 11/23/20 07:41) Hives Home Medications: Furosemide 40 mg [Lasix 40 MG] 40 mg PO BID 07/01/16 [History] Metoprolol Tartrate 10 mg PO BID 09/11/17 [History] Thyroid,Pork [Holly Thyroid] 120 mg PO DAILY 09/11/17 [History] Metformin HCl 500 mg [Glucophage 500 MG] 1,000 mg PO BID 07/06/18 [History] Hx Tetanus, Diphtheria Vaccination/Date Given: Yes Hx Influenza Vaccination/Date Given: No Hx Pneumococcal Vaccination/Date Given: No Travel Risk - International Travel Have you traveled outside of the country in past 3 weeks: No - Coronavirus Screening Are you exhibiting any of the following symptoms?: No Close contact with a COVID-19 positive Pt in past 14-21 Days: No - Vaccine Status Have you recieved a Covid-19 vaccination: Yes [facility] Marker: Subtextual - Vaccination Dates Date of 2cond Vaccination (if applicable): unknown - Review of Systems Constitutional: No Symptoms, No Fever, No Chills Eyes: No Symptoms Ears, Nose, & Throat: No Symptoms Respiratory: No Symptoms, No Cough, No Dyspnea Cardiac: No Symptoms, No Chest Pain, No Edema, No Syncope Abdominal/Gastrointestinal: No Symptoms, No Abdominal Pain, No Nausea, No Vomiting, No Diarrhea Genitourinary Symptoms: No Symptoms, No Dysuria Musculoskeletal: No Symptoms, No Back Pain, No Neck Pain Skin: No Symptoms, No Rash Neurological: No Symptoms, No Dizziness, No Focal Weakness, No Sensory Changes Psychological: No Symptoms Endocrine: No Symptoms Hematologic/Lymphatic: No Symptoms Immunological/Allergic: No Symptoms All Other Systems: Reviewed and Negative - Past Medical History Pertinent Past Medical History: Yes Neurological History: No Pertinent History ENT History: No Pertinent History Cardiac History: Arrhythmia, Hypertension Respiratory History: Sleep Apnea Endocrine Medical History: Diabetes Type II, Hypothyroidism Musculoskeletal History: No Pertinent History GI Medical History: Gallbladder Disease History: No Pertinent History Psycho-Social History: No Pertinent History Male Reproductive Disorders: No Pertinent History Other Medical History: hx AFIB - Past Surgical History Past Surgical History: Yes Neuro Surgical History: No Pertinent History Cardiac: No Pertinent History Respiratory: No Pertinent History Gastrointestinal: Hernia Repair Genitourinary: Kidney Surgery Musculoskeletal: Orthopedic Surgery Male Surgical History: No Pertinent History Other Surgical History: nasal-sinus scraping, left knee scope, kidney stones removed upper and lower scopes - Social History Smoking Status: Never smoker Exposure to second hand smoke: No Drug Use: none Patient Lives Alone: No - Nursing Vital Signs Nursing Vital Signs: Initial Vital Signs Temperature 99 F 09/25/21 13:53 Pulse Rate 96 H 09/25/21 13:53 Respiratory Rate 22 09/25/21 13:53 Blood Pressure 150/106 09/25/21 13:53 O2 Sat by Pulse Oximetry 96 09/25/21 13:53 Pain Scale Pain Intensity 2 - Physical Exam General Appearance: no apparent distress, alert Eye Exam: PERRL/EOMI, eyes nml inspection Ears, Nose, Throat Exam: normal ENT inspection, TMs normal, pharynx normal, moist mucous membranes Neck Exam: normal inspection, non-tender, supple, full range of motion Respiratory Exam: normal breath sounds, lungs clear, airway intact, No respiratory distress Cardiovascular Exam: regular rate/rhythm, normal heart sounds, normal peripheral pulses Gastrointestinal/Abdomen Exam: soft, normal bowel sounds, No tenderness, No mass Back Exam: normal inspection, normal range of motion, No CVA tenderness, No vertebral tenderness Extremity Exam: normal inspection, normal range of motion, pelvis stable Neurologic Exam: alert, 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, cooperative, normal mood/affect, nml cerebellar function, nml station & gait, sensation nml, No motor deficits Skin Exam: normal color, warm, dry, No rash Lymphatic Exam: No adenopathy SpO2 Interpretation: normal SpO2: 92 O2 Delivery: Room Air - Course Nursing assessment & vital signs reviewed: Yes EKG Interpreted by Me: RATE (96), Sinus Rhythm, prolonged QT interval, Right Bundle Branch Block - Radiology Exams Chest X-ray Interpretation: Teleradiologist Report (No acute process observed. Atelectasis observed. Old granulomatous disease) - CT Exams Head CT Interpretation: Tele-radiologist Report (No acute intracranial process observed) Chest CT Interpretation: Tele-radiologist Report (No PE. No dissection. No infiltrates. Old granulomatous disease. Coronary artery calcification) Ordered Tests: Active Orders 24 hr Category Date Time Status Off Premise Service Representative STAT Care 09/25/21 14:09 Active EKG-ER Only STAT Care 09/25/21 14:08 Active IV Insertion STAT Care 09/25/21 14:08 Active Order K Level 2 hours post-inf 2 HRS POST K-INFUSED Care 09/25/21 14:58 Active Pulse Oximetry (ED) STAT Care 09/25/21 14:08 Active Telemetry q4h Care 09/25/21 14:58 Active CHEST 1 VIEW (PORTABLE) Stat Exams 09/25/21 14:09 Completed CHEST WITH CONTRAST [CT] Stat Exams 09/25/21 15:39 Completed HEAD WITHOUT CONTRAST [CT] Stat Exams 09/25/21 14:12 Completed CBC W DIFF Stat Lab 09/25/21 14:15 Completed CMP Stat Lab 09/25/21 14:08 Completed D-DIMER QUANTITATIVE Stat Lab 09/25/21 15:23 Completed NT PRO BNP Stat Lab 09/25/21 14:08 Completed TROPONIN Q3H Lab 09/25/21 14:15 Completed TROPONIN Q3H Lab 09/25/21 17:40 Completed TROPONIN Q3H Lab 09/25/21 20:15 Ordered TROPONIN Q3H Lab 09/25/21 23:15 Ordered TROPONIN Q3H Lab 09/26/21 02:15 Ordered UA W/RFX CULTURE Stat Lab 09/25/21 15:09 Completed Urine Triage Profile Stat Lab 09/25/21 15:08 Completed Transfer Order Routine Transfer 09/25/21 Ordered Medication Summary Generic Name Dose Route Start Last Admin Trade Name Freq PRN Reason Stop Dose Admin Potassium Chloride 20 meq in 100 mls @ 50 mls/hr 09/25/21 15:00 09/25/21 18:34 Potassium Chloride 20 Meq In Water 100ml IV 09/25/21 18:59 50 mls/hr Q2H EDISON Administration Magnesium Sulfate/Dextrose 100 mls @ 100 mls/hr 09/25/21 15:00 Magnesium 1 Gm / 100 Ml D5w IV 09/25/21 16:59 Q1H EDISON Discontinued Medications Generic Name Dose Route Start Last Admin Trade Name Freq PRN Reason Stop Dose Admin Aspirin 324 mg 09/25/21 15:21 09/25/21 15:22 Aspirin 81 Mg Tab.Chew PO 09/25/21 15:22 324 mg STAT ONE Administration Aspirin Confirm 09/25/21 15:21 Aspirin 81 Mg Tab.Chew Administered 09/25/21 15:22 Dose 324 mg .ROUTE .STK-MED ONE Clopidogrel Bisulfate 300 mg 09/25/21 15:58 09/25/21 17:13 Clopidogrel Bisulfate 75 Mg Tablet PO 09/25/21 15:59 300 mg STAT ONE Administration Clopidogrel Bisulfate Confirm 09/25/21 17:13 Clopidogrel Bisulfate 75 Mg Tablet Administered 09/25/21 17:14 Dose 300 mg .ROUTE .STK-MED ONE Sodium Chloride Confirm 09/25/21 15:17 Sodium Chloride 0.9% 1000 Ml Administered 09/25/21 15:18 Dose 1,000 mls @ ud .ROUTE .STK-MED ONE Nitroglycerin 1 gm 09/25/21 15:22 09/25/21 15:22 Nitroglycerin 1 Gm Packet TOP 09/25/21 15:23 1 gm STAT ONE Administration Nitroglycerin Confirm 09/25/21 15:21 Nitroglycerin 1 Gm Packet Administered 09/25/21 15:22 Dose 1 gm .ROUTE .iPawnK-MED ONE Lab/Rad Data: Laboratory Result Diagrams 09/25/21 14:15 09/25/21 14:08 Laboratory Results 09/25/21 09/25/21 09/25/21 Range/Units 17:40 15:23 15:09 WBC (4.0-10.5) K/mm3 RBC (4.1-5.6) M/mm3 Hgb (12.5-18.0) gm/dl Hct (42-50) % MCV (78-100) fl MCH (26-32) pg MCHC (32-36) g/dl RDW (11.5-14.0) % Plt Count (150-450) K/mm3 MPV (7.5-11.0) fl Gran % (36.0-66.0) % Eos # (Auto) (0-0.5) Absolute Lymphs (auto) (1.0-4.6) Absolute Monos (auto) (0.0-1.3) Lymphocytes % (24.0-44.0) % Monocytes % (0.0-12.0) % Eosinophils % (0.00-5.0) % Basophils % (0.0-0.4) % Absolute Granulocytes (1.4-6.9) Basophils # (0-0.4) D-Dimer 1255 H* (215-500) ng/mL Sodium (137-145) mmol/L Potassium (3.5-5.1) mmol/L Chloride (98-107) mmol/L Carbon Dioxide (22-30) mmol/L Anion Gap (5-15) MEQ/L BUN (9-20) mg/dL Creatinine (0.66-1.25) mg/dL Estimated GFR ML/MIN Glucose (74-106) mg/dL Calcium (8.4-10.2) mg/dL Total Bilirubin (0.2-1.3) mg/dL AST (17-59) U/L ALT (0-50) U/L Alkaline Phosphatase (38-126) U/L Troponin I < 0.012 (0.000-0.034) ng/mL NT-Pro-B Natriuret Pep (0-900) pg/mL Serum Total Protein (6.3-8.2) g/dL Albumin (3.5-5.0) g/dL Urinalys Dipstick Clnc MAIN LAB Urine Color YELLOW (YELLOW) Urine Appearance CLEAR (CLEAR) Urine pH 5.5 (5-6) Ur Specific [place] 1.015 (1.005-1.025) POC Urine Protein Conf NEGATIVE (Negative) Urine Ketones NEGATIVE (NEGATIVE) Urine Nitrite NEGATIVE (NEGATIVE) Urine Bilirubin NEGATIVE (NEGATIVE) Urine Urobilinogen 0.2 (0-1) mg/dL Urine Leukocytes NEGATIVE (NEGATIVE) Urine WBC (Auto) NONE (0-5) /HPF Urine RBC (Auto) NONE (0-2) /HPF U Hyaline Cast (Auto) 6-10 (0-2) /LPF U Epithel Cells (Auto) NONE (FEW) /HPF Urine Bacteria (Auto) FEW (NEGATIVE) /HPF Urine RBC NEGATIVE (0-5) Arpan/ul Urine Mucus (Auto) SLIGHT (NEGATIVE) /HPF Ur Culture Indicated? NO Urine Glucose NEGATIVE (NEGATIVE) mg/dL Urine Opiates Level (NEGATIVE) Ur Methadone (NEGATIVE) Urine Barbiturates (NEGATIVE) Ur Phencyclidine (PCP) (NEGATIVE) Urine Amphetamine (NEGATIVE) U Benzodiazepine Level (NEGATIVE) Urine Cocaine (NEGATIVE) Urine Marijuana (THC) (NEGATIVE) Influenza Type A Ag (NEGATIVE) Influenza Type B Ag (NEGATIVE) RSV (PCR) (Negative) SARS-CoV-2 (PCR) (NEGATIVE) 09/25/21 09/25/21 09/25/21 Range/Units 15:08 14:42 14:15 WBC (4.0-10.5) K/mm3 RBC (4.1-5.6) M/mm3 Hgb (12.5-18.0) gm/dl Hct (42-50) % MCV (78-100) fl MCH (26-32) pg MCHC (32-36) g/dl RDW (11.5-14.0) % Plt Count (150-450) K/mm3 MPV (7.5-11.0) fl Gran % (36.0-66.0) % Eos # (Auto) (0-0.5) Absolute Lymphs (auto) (1.0-4.6) Absolute Monos (auto) (0.0-1.3) Lymphocytes % (24.0-44.0) % Monocytes % (0.0-12.0) % Eosinophils % (0.00-5.0) % Basophils % (0.0-0.4) % Absolute Granulocytes (1.4-6.9) Basophils # (0-0.4) D-Dimer (215-500) ng/mL Sodium (137-145) mmol/L Potassium (3.5-5.1) mmol/L Chloride (98-107) mmol/L Carbon Dioxide (22-30) mmol/L Anion Gap (5-15) MEQ/L BUN (9-20) mg/dL Creatinine (0.66-1.25) mg/dL Estimated GFR ML/MIN Glucose (74-106) mg/dL Calcium (8.4-10.2) mg/dL Total Bilirubin (0.2-1.3) mg/dL AST (17-59) U/L ALT (0-50) U/L Alkaline Phosphatase (38-126) U/L Troponin I < 0.012 (0.000-0.034) ng/mL NT-Pro-B Natriuret Pep (0-900) pg/mL Serum Total Protein (6.3-8.2) g/dL Albumin (3.5-5.0) g/dL Urinalys Dipstick Clnc Urine Color (YELLOW) Urine Appearance (CLEAR) Urine pH (5-6) Ur Specific [place] (1.005-1.025) POC Urine Protein Conf (Negative) Urine Ketones (NEGATIVE) Urine Nitrite (NEGATIVE) Urine Bilirubin (NEGATIVE) Urine Urobilinogen (0-1) mg/dL Urine Leukocytes (NEGATIVE) Urine WBC (Auto) (0-5) /HPF Urine RBC (Auto) (0-2) /HPF U Hyaline Cast (Auto) (0-2) /LPF U Epithel Cells (Auto) (FEW) /HPF Urine Bacteria (Auto) (NEGATIVE) /HPF Urine RBC (0-5) Arpan/ul Urine Mucus (Auto) (NEGATIVE) /HPF Ur Culture Indicated? Urine Glucose (NEGATIVE) mg/dL Urine Opiates Level NEGATIVE (NEGATIVE) Ur Methadone NEGATIVE (NEGATIVE) Urine Barbiturates NEGATIVE (NEGATIVE) Ur Phencyclidine (PCP) NEGATIVE (NEGATIVE) Urine Amphetamine NEGATIVE (NEGATIVE) U Benzodiazepine Level NEGATIVE (NEGATIVE) Urine Cocaine NEGATIVE (NEGATIVE) Urine Marijuana (THC) NEGATIVE (NEGATIVE) Influenza Type A Ag NEGATIVE (NEGATIVE) Influenza Type B Ag NEGATIVE (NEGATIVE) RSV (PCR) NEGATIVE (Negative) SARS-CoV-2 (PCR) NEGATIVE (NEGATIVE) 09/25/21 09/25/21 Range/Units 14:15 14:08 WBC 13.1 H (4.0-10.5) K/mm3 RBC 4.86 (4.1-5.6) M/mm3 Hgb 15.0 (12.5-18.0) gm/dl Hct 43.7 (42-50) % MCV 89.9 (78-100) fl MCH 30.9 (26-32) pg MCHC 34.3 (32-36) g/dl RDW 13.3 (11.5-14.0) % Plt Count 308 (150-450) K/mm3 MPV 10.0 (7.5-11.0) fl Gran % 71.4 H (36.0-66.0) % Eos # (Auto) 0.19 (0-0.5) Absolute Lymphs (auto) 2.42 (1.0-4.6) Absolute Monos (auto) 1.13 (0.0-1.3) Lymphocytes % 18.4 L (24.0-44.0) % Monocytes % 8.6 (0.0-12.0) % Eosinophils % 1.4 (0.00-5.0) % Basophils % 0.2 (0.0-0.4) % Absolute Granulocytes 9.37 H (1.4-6.9) Basophils # 0.03 (0-0.4) D-Dimer (215-500) ng/mL Sodium 138 (137-145) mmol/L Potassium 2.7 L* (3.5-5.1) mmol/L Chloride 99 (98-107) mmol/L Carbon Dioxide 26 (22-30) mmol/L Anion Gap 15.1 H (5-15) MEQ/L BUN 12 (9-20) mg/dL Creatinine 0.79 (0.66-1.25) mg/dL Estimated GFR > 60.0 ML/MIN Glucose 209 H (74-106) mg/dL Calcium 8.6 (8.4-10.2) mg/dL Total Bilirubin 1.00 (0.2-1.3) mg/dL AST 25 (17-59) U/L ALT 21 (0-50) U/L Alkaline Phosphatase 84 (38-126) U/L Troponin I (0.000-0.034) ng/mL NT-Pro-B Natriuret Pep 40.2 (0-900) pg/mL Serum Total Protein 7.0 (6.3-8.2) g/dL Albumin 4.0 (3.5-5.0) g/dL Urinalys Dipstick Clnc Urine Color (YELLOW) Urine Appearance (CLEAR) Urine pH (5-6) Ur Specific [place] (1.005-1.025) POC Urine Protein Conf (Negative) Urine Ketones (NEGATIVE) Urine Nitrite (NEGATIVE) Urine Bilirubin (NEGATIVE) Urine Urobilinogen (0-1) mg/dL Urine Leukocytes (NEGATIVE) Urine WBC (Auto) (0-5) /HPF Urine RBC (Auto) (0-2) /HPF U Hyaline Cast (Auto) (0-2) /LPF U Epithel Cells (Auto) (FEW) /HPF Urine Bacteria (Auto) (NEGATIVE) /HPF Urine RBC (0-5) Arpan/ul Urine Mucus (Auto) (NEGATIVE) /HPF Ur Culture Indicated? Urine Glucose (NEGATIVE) mg/dL Urine Opiates Level (NEGATIVE) Ur Methadone (NEGATIVE) Urine Barbiturates (NEGATIVE) Ur Phencyclidine (PCP) (NEGATIVE) Urine Amphetamine (NEGATIVE) U Benzodiazepine Level (NEGATIVE) Urine Cocaine (NEGATIVE) Urine Marijuana (THC) (NEGATIVE) Influenza Type A Ag (NEGATIVE) Influenza Type B Ag (NEGATIVE) RSV (PCR) (Negative) SARS-CoV-2 (PCR) (NEGATIVE) - Progress Progress: improved Progress Note: Telemetry neuro advises against tPA. Patient had a GI bleed from Eliquis ap proximately 3 months ago. Patient advises symptoms started 10 minutes prior to arrival. Patient told neurologist symptoms started approximately 2-1/2 hours prior to arrival. Neurologist advises admission for MRI and complete neurological work-up. 09/25/21 15:59 COVID test negative. Case discussed with Dr. Laguerre who accepts admission to observation. Patient was in deliberation for several hours as to whether or not he was going to stay in the hospital. In that timeframe we are waiting for the CTA to return. CTAs negative for dissection. No PE. There is coronary artery calcification. Plan of care discussed with patient. He agrees to admission [facility] for further evaluation and treatment. Portions of this note were created with voice recognition technology. There may be grammatical, spelling, punctuation or sound alike errors 09/25/21 18:38 Patient reassessed. Symptoms are resolved. Patient is currently asymptomatic eating. No weakness. No slurred speech observed. 09/25/21 18:39 Discussed with : Nickie Will see patient in: hospital (observation) Counseled pt/family regarding: lab results, diagnosis, rad results - Departure Departure Disposition: Observation Clinical Impression: Hypokalemia, Hypomagnesemia, Numbness, Leukocytosis, Hyperglycemia, TIA (transient ischemic attack), Chest pain Condition: Stable Critical Care Time: No Referrals: FEDERICA SANCHEZ [Primary Care Provider] - Follow up/PCP as directed
[2021-09-25 14:36] LABS: ALKALINE PHOSPHATASE 84 U/L (38-126); ANION GAP 15.1 MEQ/L (5-15); BLOOD UREA NITROGEN 12 mg/dL (9-20); CHLORIDE 99 mmol/L (98-107); Calcium 8.6 mg/dL (8.4-10.2); Carbon Dioxide 26 mmol/L (22-30); Creatinine 1 0.79 mg/dL (0.66-1.25); EST GLOMERULAR FILTRATION RATE > 60.0 ML/MIN; Glucose 209 mg/dL (74-106); NT PRO BNP 40.2 pg/mL (0-900); SGOT/AST 25 U/L (17-59); SGPT/ALT 21 U/L (0-50); SODIUM 138 mmol/L (137-145)
--- NOTE | 2021-09-25 14:37 | XRAY ---
Exam: CT of the head without IV contrast from 09/25/2021. CTDI: 53.92 mGy Comparison: CT of the head without IV contrast from 09/11/2017. Indication: 61-year-old male with left hand, facial, and neck pain; shortness of breath; numbness and weakness; slurred speech; stroke protocol. Technique: Non-IV contrast axial images were obtained through the brain. Reconstructed coronal and sagittal images were created and reviewed. Findings: The ventricles appear within normal limits of size. No focal mass effect or midline shift is seen. No acute intracranial bleed or abnormal extra-axial fluid collection is seen. The mejia matter-white matter interfaces are preserved. No low attenuation infarct is seen within a major cerebral or cerebellar artery distribution at this time. The cortical sulci and basilar cisterns appear unremarkable. The calvarium of the skull appears intact. Some mild vascular calcification is seen within the distal left vertebral artery. There is also minimal atherosclerotic calcification within the right carotid siphon. The patient appears to have had prior paranasal sinus surgery with bilateral antral windows. Minimal scattered mucosal thickening is seen within the inferior right maxillary sinus. No mucosal thickening is seen within the left maxillary sinus. This appears slightly improved. It appears there has been at least partial resection of the middle nasal turbinates. The mastoid air cells are clear without effusion. The middle ear cavities appear unremarkable. Impression: 1. No acute intracranial bleed or other acute intracranial process is seen. 2. Evidence of prior paranasal sinus surgery with bilateral antral windows and middle turbinectomies. There is some minor mucosal thickening within the inferior aspect of the right maxillary sinus. No air-fluid levels are seen.
--- NOTE | 2021-09-25 14:47 | XRAY ---
Exam: AP upright portable chest film from 09/25/2021. Comparison: Two-view chest series from 05/28/2019. Indication: 61-year-old male with chest pain; weakness and difficulty speaking; stroke-like symptoms. Findings: The film was obtained in a mildly lordotic projection. The transverse heart size is normal. Slight tortuosity of both the ascending and descending thoracic aorta are seen. A subcarinal granulomas calcification is seen to the right of midline representing no change. There also appears to be a calcified granuloma at the medial right lung base. Minimal linear plate atelectasis is seen at the left lung base near the hemidiaphragm surface. No air space infiltrates, vascular congestion, pneumothorax, or pleural fluid is seen. Some degenerative spurring is seen within the mid and lower thoracic spine. Impression: 1. Minimal plate atelectasis is seen at the left lung base adjacent to the left hemidiaphragm. 2. Otherwise, no acute cardiopulmonary disease is seen. 3. I again see some old granulomatous disease on the right, as discussed above.
[2021-09-25 14:55] LABS: Potassium 2.7 mmol/L (3.5-5.1)
[2021-09-25] MEDS ORDERED: POTASSIUM CHLORIDE 20 mEq IN WATER 100ML 100 ML IV ONE ×2 (15:00→18:33)
[2021-09-25] MEDS: POTASSIUM CHLORIDE 20 mEq IN WATER 100ML 20 MEQ/100 ML BAG IV SCH ×2 (15:02→18:34)
[2021-09-25] MEDS ORDERED: Sodium Chloride 0.9% 1000 ML 1,000 ML ONE (15:17)
[2021-09-25] MEDS ORDERED: NITRO-BID 2% UD PACKETS ONE (15:21)
[2021-09-25] MEDS ORDERED: BABY ASPIRIN 81 MG CHEW ONE (15:21)
[2021-09-25] MEDS ORDERED: BABY ASPIRIN 81 MG CHEW PO ONE (15:21)
[2021-09-25] MEDS ORDERED: NITRO-BID 2% UD PACKETS TOP ONE (15:22)
[2021-09-25 15:44] LABS: INFLUENZA A NEGATIVE (NEGATIVE); INFLUENZA B NEGATIVE (NEGATIVE); RESPIRATORY SYNCTIAL VIRUS NEGATIVE (Negative); SARS-CoV-2 Xpert Express NEGATIVE (NEGATIVE)
[2021-09-25] MEDS ORDERED: PLAVIX 75 MG Tablet PO ONE (15:58)
[2021-09-25 17:09] LABS: Appearance CLEAR (CLEAR); Bilirubin NEGATIVE (NEGATIVE); Dipstick done @ ? MAIN LAB; Glucose NEGATIVE (NEGATIVE); Ketones NEGATIVE (NEGATIVE); Nitrite NEGATIVE (NEGATIVE); Ph 5.5 (5-6); Protein,Urine Dip NEGATIVE (Negative); RBC NEGATIVE Ery/ul (0-5); Specific Gravity 1.015 (1.005-1.025); Urobilinogen 0.2 mg/dL (0-1)
[2021-09-25 17:10] LABS: Bacteria FEW /HPF (NEGATIVE); Mucus SLIGHT /HPF (NEGATIVE)
[2021-09-25 17:11] LABS: Urine Cultured Indicated? NO
[2021-09-25] MEDS ORDERED: PLAVIX 75 MG Tablet ONE (17:13)
[2021-09-25 17:24] LABS: Amphetamine,Urine NEGATIVE (NEGATIVE); Barbiturate,Urine NEGATIVE (NEGATIVE); Benzodiazepine,Urine NEGATIVE (NEGATIVE); Cocaine,Urine NEGATIVE (NEGATIVE); Methadone,Urine NEGATIVE (NEGATIVE); Opiate,Urine NEGATIVE (NEGATIVE); PCP,Urine NEGATIVE (NEGATIVE); THC,Urine NEGATIVE (NEGATIVE)
--- NOTE | 2021-09-25 18:26 | XRAY ---
Exam: CT Chest PE protocol CTDI: 31.15 mGy Comparison: AP upright portable chest film from earlier today on 09/25/2021. Indication: Shortness of breath and elevated d-dimer of 1255. Rule out pulmonary embolus. Technique: Post-IV contrast axial images were obtained through the chest. Automated injection using 100 cc of Isovue 370 contrast was utilized. Reconstructed coronal and sagittal images were created and reviewed. Findings: CT of the chest is performed with IV contrast utilizing a pulmonary embolism protocol. The pulmonary arteries enhance well revealing no filling defects to suggest clot/emboli. The thoracic aorta enhances well and reveals no evidence of aneurysm or thoracic aortic dissection. The heart size is normal without pericardial effusion. Moderate coronary artery calcification is seen within the LAD and circumflex arteries. There is some prominent mediastinal fat with epicardial fat pads. Some granulomatous calcifications are seen within the distal right paratracheal projection, subcarinal region, and right perihilar, and right infrahilar projections consistent with old granulomatous disease. The lungs are well expanded. I note some minor linear atelectasis/scarring at both posterior lung bases. No air space infiltrates, suspicious soft tissue lung nodule, pneumothorax, or pleural fluid is seen. The upper abdomen partially visualizes the adrenal glands. No abnormality is seen. At least one surgical clip is seen within the subhepatic space on the most inferior axial image. The remainder of the visualized upper abdomen appears unremarkable. Mild lower thoracic spondylosis is seen. No acute fracture or aggressive bone lesion is seen. Impression: 1. No CT evidence for pulmonary embolism, thoracic aortic aneurysm, or thoracic aortic dissection. 2. No pulmonary infiltrates or soft tissue lung nodules are seen. Mild linear scarring/atelectasis is seen at both posterior lung bases. 3. Old healed granulomatous disease. 4. Moderate coronary artery vascular calcification is seen within the LAD and circumflex arteries.
[2021-09-25] MEDS: Magnesium 1 Gm / 100 Ml D5W*** 100 ML IV SCH ×3 (19:44→22:33)
[2021-09-25] MEDS ORDERED: Zofran 4 MG/2 ML VIAL IV PRN (20:09)
[2021-09-25] MEDS ORDERED: Senokot-S Tablet PO PRN (20:09)
[2021-09-25] MEDS ORDERED: MAALOX ES 30 ML UNIT DOSE PO PRN (20:09)
[2021-09-25] MEDS ORDERED: MILK OF MAGNESIA 30 ML PO PRN (20:09)
[2021-09-25] MEDS ORDERED: TYLENOL 325 MG PO PRN (20:09)
[2021-09-25] MEDS ORDERED: Lopressor 25MG Tab ONE (21:40)
[2021-09-25] MEDS ORDERED: Magnesium 1 Gm / 100 Ml D5W*** 100 ML IV ONE (21:45)
[2021-09-25] MEDS ORDERED: Magnesium Sulfate 1 GM/2 ML VIAL IV ONE (21:45)
[2021-09-26] MEDS ORDERED: Magnesium 1 Gm / 100 Ml D5W*** 100 ML IV ONE (00:01)
[2021-09-26] MEDS: POTASSIUM CHLORIDE 20 mEq IN WATER 100ML 20 MEQ/100 ML BAG IV SCH ×2 (00:25→04:38)
[2021-09-26] MEDS ORDERED: K-LYTE 25 MEQ PO ONE (00:47)
[2021-09-26] MEDS: Sodium Chloride 0.9% 1000 ML 1,000 ML IV SCH ×2 (00:56→10:34)
[2021-09-26 05:19] LABS: Risk Ratio 6.2
[2021-09-26 09:19] LABS: Absolute Neutrophil Ct (ANC) 6.37 (1.4-6.9); Basophil (Absolute #) 0.05 (0-0.4); Eosinophil % 2.8 % (0.00-5.0); Eosinophil (Absolute #) 0.25 (0-0.5); Hemoglobin 14.7 gm/dl (12.5-18.0); Lymphocyte (Absolute #) 1.54 (1.0-4.6); Mean Cell Volume 91.7 fl (78-100); Mean Corpuscular Hemoglobin 30.6 pg (26-32); Mean Corpuscular Hgb Concent. 33.4 g/dl (32-36); Mean Platelet Volume 10.2 fl (7.5-11.0); Monocyte (Absolute #) 0.84 (0.0-1.3); Monocytes % 9.3 % (0.0-12.0); Neutrophil % 70.3 % (36.0-66.0); Platelet Count 287 K/mm3 (150-450); Red Cell Distribution Width 13.3 % (11.5-14.0); White Blood Count 9.1 K/mm3 (4.0-10.5)
[2021-09-26 09:26] LABS: ANION GAP 9.9 MEQ/L (5-15); BLOOD UREA NITROGEN 8 mg/dL (9-20); CHLORIDE 101 mmol/L (98-107); Calcium 8.3 mg/dL (8.4-10.2); Carbon Dioxide 30 mmol/L (22-30); Creatinine 1 0.65 mg/dL (0.66-1.25); EST GLOMERULAR FILTRATION RATE > 60.0 ML/MIN; Glucose 132 mg/dL (74-106); SODIUM 138 mmol/L (137-145)
[2021-09-26] MEDS ORDERED: THYROID PORK 120 MG PO SCH ×2 (10:00)
[2021-09-26] MEDS ORDERED: Klor Con 10 MEQ PO SCH (10:00)
[2021-09-26] MEDS ORDERED: ECOTRIN 81 MG PO SCH (10:00)
[2021-09-26] MEDS ORDERED: Lasix 40 MG PO SCH (10:00)
--- NOTE | 2021-09-26 10:52 | XRAY ---
Indication: TIA. Two-dimensional sonogram and color Doppler imaging of the carotid arteries of the neck performed. Comparison: None Examination of the right carotid circulation demonstrates minimal soft plaquing at the level of the bulb. Remaining common carotid, internal carotid, and external carotid arteries are widely patent.. PSV of the CCA is 133 cm/s. PSV of the ICA is 55 cm/s. ICA/CCA ratio is 0.4. Normal antegrade vertebral artery flow. Examination of the left carotid circulation demonstrates widely patent common carotid, carotid bulb, internal carotid, and external carotid arteries. PSV of the CCA is 122 cm/s. PSV of the ICA is 53 cm/s. ICA/CCA ratio is 0.4. Normal antegrade vertebral artery flow. Impression: Minimal plaquing right carotid bulb. Widely patent left carotid circulation. Velocity measurements and ratios are negative for hemodynamically significant flow limiting stenosis.
--- NOTE | 2021-09-26 10:59 | PCM.SSS ---
History of Present Illness - Chief Complaint Chief Complaint: TIA History of Present Illness: is a 61 year old male pt of mine from [facility] with PMHx afib, DMII, HTN, hypothyroidism who was admitted through ER with TIA. He started feeling poorly 2d ago. Yesterday he woke up and vomited x4, tolerated a little po and went to work. At 10:30 am he started having numbness in L CN V3 distribution. He then had some numbness on the R and then his ears became numb (L>R). The numbness extended down his L arm and neck. The sx lasted until 4:10 pm. When he came to ER, about 2.[address] head negative for acute bleed. Pt was taking Eliquis for his afib, but earlier this spring he had some bright red blood per rectum and he stopped taking it and was changed by Dr. Galvez to aspiring 81mg daily. in the remote past, he took xarelto, but was concerned about commercials regarding lawsuits so he stopped it. His potassium was 2.7 and he was started on IV repletion; it caused burning and pain in his chest and was discontinued, with resolution of the pain. He had 5 troponins which were all normal. CXR was nonacute. D-dimer was elevated, but CT chest neg for PE. This morning his potassium is 3.0, after 3 K-riders and 25mEq Klyte. He was started on 20mEq K+ BID today. - Review of Systems Abdominal/Gastrointestinal: Abdominal Pain (chronic, since GB removal), Nausea, Vomiting, Diarrhea (chronic loose stools since cholecystectomy) Musculoskeletal: Arthralgias, Neck Pain, Joint Pain Psychological: Depression (improved on current meds) All Other Systems: Reviewed and Negative Medications & Allergies Home Medications: Home Medication List Furosemide 40 mg [Lasix 40 MG] 40 mg PO BID 07/01/16 [History Confirmed 09/25/21] Metoprolol Tartrate 25 mg PO HS 09/11/17 [History Confirmed 09/25/21] Thyroid,Pork [Vina Thyroid] 120 mg PO DAILY 09/11/17 [History Confirmed 09/25/21] Metformin HCl 500 mg [Glucophage 500 MG] 1,000 mg PO BID 07/06/18 [History Confirmed 09/25/21] Aspirin EC 81 mg [Ecotrin 81 mg] 81 mg PO DAILY #0 11/23/20 [Rx Confirmed 09/25/21] Allergies/Adverse Reactions: Allergies Allergy/AdvReac Type Severity Reaction Status Date / Time Penicillins Allergy Hives Verified 11/23/20 07:41 - Past Medical History Past Medical History: Yes Neurological History: No Pertinent History ENT History: No Pertinent History Cardiac History: Arrhythmia, Hypertension Respiratory History: Sleep Apnea Endocrine Medical History: Diabetes Type II, Hypothyroidism Musculoskelatal History: No Pertinent History GI Medical History: Gallbladder Disease History: No Pertinent History Pyscho-Social History: No Pertinent History Male Reproductive Disorders: No Pertinent History Comment: hx AFIB - Past Surgical History Past Surgical History: Yes Neuro Surgical History: No Pertinent History Cardiac History: No Pertinent History Respiratory Surgery: No Pertinent History GI Surgical History: Hernia Repair Genitourinary Surgical Hx: Kidney Surgery Musculskeletal Surgical Hx: Orthopedic Surgery Male Surgical History: No Pertinent History Other Surgical History: nasal-sinus scraping, left knee scope, kidney stones removed upper and lower scopes - Social History Smoking Status: Never smoker Exposure to second hand smoke: No Alcohol: None Drug Use: none - Physical Exam Vital Signs: Vital Signs - 24 hr Temp Pulse Resp BP BP Pulse Ox 09/26/21 07:20 97.8 F 76 20 103/64 96 09/26/21 04:00 97.8 F 75 20 110/61 93 L 09/25/21 23:50 97.8 F 75 20 104/56 96 09/25/21 20:12 97.1 F 87 18 122/75 99 09/25/21 19:05 81 106/54 94 L 09/25/21 18:39 92 L 09/25/21 18:03 88 18 110/69 96 09/25/21 17:11 90 18 94 L 09/25/21 16:06 68 16 133/83 94 L 09/25/21 15:09 100 H 16 112/84 95 09/25/21 14:22 92 L 09/25/21 14:20 100 H 20 115/82 91 L 09/25/21 13:53 99 F 96 H 22 150/106 96 General Appearance: no apparent distress, alert, obese Neurologic Exam: 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, cooperative Eye Exam: eyes nml inspection Ears, Nose, Throat Exam: moist mucous membranes Neck Exam: normal inspection, non-tender, No lymphadenopathy, No thyromegaly Respiratory Exam: normal breath sounds, lungs clear, No crackles/rales, No rhonchi, No wheezing Cardiovascular Exam: regular rate/rhythm, normal heart sounds, No murmur Gastrointestinal/Abdomen Exam: soft, normal bowel sounds, other (epigastric and suprapubic ttp) Back Exam: normal inspection, No CVA tenderness, No rash Extremity Exam: normal inspection, No pedal edema, No swelling Results - Labs Lab/Micro Results: Lab Results-Last 24 Hours 09/25/21 09/25/21 09/25/21 Range/Units 14:08 14:15 14:15 WBC 13.1 H (4.0-10.5) K/mm3 RBC 4.86 (4.1-5.6) M/mm3 Hgb 15.0 (12.5-18.0) gm/dl Hct 43.7 (42-50) % MCV 89.9 (78-100) fl MCH 30.9 (26-32) pg MCHC 34.3 (32-36) g/dl RDW 13.3 (11.5-14.0) % Plt Count 308 (150-450) K/mm3 MPV 10.0 (7.5-11.0) fl Gran % 71.4 H (36.0-66.0) % Eos # (Auto) 0.19 (0-0.5) Absolute Lymphs (auto) 2.42 (1.0-4.6) Absolute Monos (auto) 1.13 (0.0-1.3) Lymphocytes % 18.4 L (24.0-44.0) % Monocytes % 8.6 (0.0-12.0) % Eosinophils % 1.4 (0.00-5.0) % Basophils % 0.2 (0.0-0.4) % Absolute Granulocytes 9.37 H (1.4-6.9) Basophils # 0.03 (0-0.4) D-Dimer (215-500) ng/mL Sodium 138 (137-145) mmol/L Potassium 2.7 L* (3.5-5.1) mmol/L Chloride 99 (98-107) mmol/L Carbon Dioxide 26 (22-30) mmol/L Anion Gap 15.1 H (5-15) MEQ/L BUN 12 (9-20) mg/dL Creatinine 0.79 (0.66-1.25) mg/dL Estimated GFR > 60.0 ML/MIN Glucose 209 H (74-106) mg/dL POC Glucometer (74 to 106) mg/dL Calcium 8.6 (8.4-10.2) mg/dL Magnesium (1.6-2.3) mg/dL Total Bilirubin 1.00 (0.2-1.3) mg/dL AST 25 (17-59) U/L ALT 21 (0-50) U/L Alkaline Phosphatase 84 (38-126) U/L Troponin I < 0.012 (0.000-0.034) ng/mL NT-Pro-B Natriuret Pep 40.2 (0-900) pg/mL Serum Total Protein 7.0 (6.3-8.2) g/dL Albumin 4.0 (3.5-5.0) g/dL Triglycerides (30-150) mg/dL Cholesterol (50-200) mg/dL LDL Cholesterol (30-100) mg/dL HDL Cholesterol (40-60) mg/dL Heart Disease Risk Ratio Urinalys Dipstick Clnc Urine Color (YELLOW) Urine Appearance (CLEAR) Urine pH (5-6) Ur Specific [place] (1.005-1.025) POC Urine Protein Conf (Negative) Urine Ketones (NEGATIVE) Urine Nitrite (NEGATIVE) Urine Bilirubin (NEGATIVE) Urine Urobilinogen (0-1) mg/dL Urine Leukocytes (NEGATIVE) Urine WBC (Auto) (0-5) /HPF Urine RBC (Auto) (0-2) /HPF U Hyaline Cast (Auto) (0-2) /LPF U Epithel Cells (Auto) (FEW) /HPF Urine Bacteria (Auto) (NEGATIVE) /HPF Urine RBC (0-5) Arpan/ul Urine Mucus (Auto) (NEGATIVE) /HPF Ur Culture Indicated? Urine Glucose (NEGATIVE) mg/dL Urine Opiates Level (NEGATIVE) Ur Methadone (NEGATIVE) Urine Barbiturates (NEGATIVE) Ur Phencyclidine (PCP) (NEGATIVE) Urine Amphetamine (NEGATIVE) U Benzodiazepine Level (NEGATIVE) Urine Cocaine (NEGATIVE) Urine Marijuana (THC) (NEGATIVE) Influenza Type A Ag (NEGATIVE) Influenza Type B Ag (NEGATIVE) RSV (PCR) (Negative) SARS-CoV-2 (PCR) (NEGATIVE) 09/25/21 09/25/21 09/25/21 Range/Units 14:42 15:08 15:09 WBC (4.0-10.5) K/mm3 RBC (4.1-5.6) M/mm3 Hgb (12.5-18.0) gm/dl Hct (42-50) % MCV (78-100) fl MCH (26-32) pg MCHC (32-36) g/dl RDW (11.5-14.0) % Plt Count (150-450) K/mm3 MPV (7.5-11.0) fl Gran % (36.0-66.0) % Eos # (Auto) (0-0.5) Absolute Lymphs (auto) (1.0-4.6) Absolute Monos (auto) (0.0-1.3) Lymphocytes % (24.0-44.0) % Monocytes % (0.0-12.0) % Eosinophils % (0.00-5.0) % Basophils % (0.0-0.4) % Absolute Granulocytes (1.4-6.9) Basophils # (0-0.4) D-Dimer (215-500) ng/mL Sodium (137-145) mmol/L Potassium (3.5-5.1) mmol/L Chloride (98-107) mmol/L Carbon Dioxide (22-30) mmol/L Anion Gap (5-15) MEQ/L BUN (9-20) mg/dL Creatinine (0.66-1.25) mg/dL Estimated GFR ML/MIN Glucose (74-106) mg/dL POC Glucometer (74 to 106) mg/dL Calcium (8.4-10.2) mg/dL Magnesium (1.6-2.3) mg/dL Total Bilirubin (0.2-1.3) mg/dL AST (17-59) U/L ALT (0-50) U/L Alkaline Phosphatase (38-126) U/L Troponin I (0.000-0.034) ng/mL NT-Pro-B Natriuret Pep (0-900) pg/mL Serum Total Protein (6.3-8.2) g/dL Albumin (3.5-5.0) g/dL Triglycerides (30-150) mg/dL Cholesterol (50-200) mg/dL LDL Cholesterol (30-100) mg/dL HDL Cholesterol (40-60) mg/dL Heart Disease Risk Ratio Urinalys Dipstick Clnc MAIN LAB Urine Color YELLOW (YELLOW) Urine Appearance CLEAR (CLEAR) Urine pH 5.5 (5-6) Ur Specific [place] 1.015 (1.005-1.025) POC Urine Protein Conf NEGATIVE (Negative) Urine Ketones NEGATIVE (NEGATIVE) Urine Nitrite NEGATIVE (NEGATIVE) Urine Bilirubin NEGATIVE (NEGATIVE) Urine Urobilinogen 0.2 (0-1) mg/dL Urine Leukocytes NEGATIVE (NEGATIVE) Urine WBC (Auto) NONE (0-5) /HPF Urine RBC (Auto) NONE (0-2) /HPF U Hyaline Cast (Auto) 6-10 (0-2) /LPF U Epithel Cells (Auto) NONE (FEW) /HPF Urine Bacteria (Auto) FEW (NEGATIVE) /HPF Urine RBC NEGATIVE (0-5) Arpan/ul Urine Mucus (Auto) SLIGHT (NEGATIVE) /HPF Ur Culture Indicated? NO Urine Glucose NEGATIVE (NEGATIVE) mg/dL Urine Opiates Level NEGATIVE (NEGATIVE) Ur Methadone NEGATIVE (NEGATIVE) Urine Barbiturates NEGATIVE (NEGATIVE) Ur Phencyclidine (PCP) NEGATIVE (NEGATIVE) Urine Amphetamine NEGATIVE (NEGATIVE) U Benzodiazepine Level NEGATIVE (NEGATIVE) Urine Cocaine NEGATIVE (NEGATIVE) Urine Marijuana (THC) NEGATIVE (NEGATIVE) Influenza Type A Ag NEGATIVE (NEGATIVE) Influenza Type B Ag NEGATIVE (NEGATIVE) RSV (PCR) NEGATIVE (Negative) SARS-CoV-2 (PCR) NEGATIVE (NEGATIVE) 09/25/21 09/25/21 09/25/21 Range/Units 15:23 17:40 20:55 WBC (4.0-10.5) K/mm3 RBC (4.1-5.6) M/mm3 Hgb (12.5-18.0) gm/dl Hct (42-50) % MCV (78-100) fl MCH (26-32) pg MCHC (32-36) g/dl RDW (11.5-14.0) % Plt Count (150-450) K/mm3 MPV (7.5-11.0) fl Gran % (36.0-66.0) % Eos # (Auto) (0-0.5) Absolute Lymphs (auto) (1.0-4.6) Absolute Monos (auto) (0.0-1.3) Lymphocytes % (24.0-44.0) % Monocytes % (0.0-12.0) % Eosinophils % (0.00-5.0) % Basophils % (0.0-0.4) % Absolute Granulocytes (1.4-6.9) Basophils # (0-0.4) D-Dimer 1255 H* (215-500) ng/mL Sodium (137-145) mmol/L Potassium (3.5-5.1) mmol/L Chloride (98-107) mmol/L Carbon Dioxide (22-30) mmol/L Anion Gap (5-15) MEQ/L BUN (9-20) mg/dL Creatinine (0.66-1.25) mg/dL Estimated GFR ML/MIN Glucose (74-106) mg/dL POC Glucometer (74 to 106) mg/dL Calcium (8.4-10.2) mg/dL Magnesium (1.6-2.3) mg/dL Total Bilirubin (0.2-1.3) mg/dL AST (17-59) U/L ALT (0-50) U/L Alkaline Phosphatase (38-126) U/L Troponin I < 0.012 < 0.012 (0.000-0.034) ng/mL NT-Pro-B Natriuret Pep (0-900) pg/mL Serum Total Protein (6.3-8.2) g/dL Albumin (3.5-5.0) g/dL Triglycerides (30-150) mg/dL Cholesterol (50-200) mg/dL LDL Cholesterol (30-100) mg/dL HDL Cholesterol (40-60) mg/dL Heart Disease Risk Ratio Urinalys Dipstick Clnc Urine Color (YELLOW) Urine Appearance (CLEAR) Urine pH (5-6) Ur Specific [place] (1.005-1.025) POC Urine Protein Conf (Negative) Urine Ketones (NEGATIVE) Urine Nitrite (NEGATIVE) Urine Bilirubin (NEGATIVE) Urine Urobilinogen (0-1) mg/dL Urine Leukocytes (NEGATIVE) Urine WBC (Auto) (0-5) /HPF Urine RBC (Auto) (0-2) /HPF U Hyaline Cast (Auto) (0-2) /LPF U Epithel Cells (Auto) (FEW) /HPF Urine Bacteria (Auto) (NEGATIVE) /HPF Urine RBC (0-5) Arpan/ul Urine Mucus (Auto) (NEGATIVE) /HPF Ur Culture Indicated? Urine Glucose (NEGATIVE) mg/dL Urine Opiates Level (NEGATIVE) Ur Methadone (NEGATIVE) Urine Barbiturates (NEGATIVE) Ur Phencyclidine (PCP) (NEGATIVE) Urine Amphetamine (NEGATIVE) U Benzodiazepine Level (NEGATIVE) Urine Cocaine (NEGATIVE) Urine Marijuana (THC) (NEGATIVE) Influenza Type A Ag (NEGATIVE) Influenza Type B Ag (NEGATIVE) RSV (PCR) (Negative) SARS-CoV-2 (PCR) (NEGATIVE) 09/25/21 09/25/21 09/26/21 Range/Units 23:40 23:40 00:01 WBC (4.0-10.5) K/mm3 RBC (4.1-5.6) M/mm3 Hgb (12.5-18.0) gm/dl Hct (42-50) % MCV (78-100) fl MCH (26-32) pg MCHC (32-36) g/dl RDW (11.5-14.0) % Plt Count (150-450) K/mm3 MPV (7.5-11.0) fl Gran % (36.0-66.0) % Eos # (Auto) (0-0.5) Absolute Lymphs (auto) (1.0-4.6) Absolute Monos (auto) (0.0-1.3) Lymphocytes % (24.0-44.0) % Monocytes % (0.0-12.0) % Eosinophils % (0.00-5.0) % Basophils % (0.0-0.4) % Absolute Granulocytes (1.4-6.9) Basophils # (0-0.4) D-Dimer (215-500) ng/mL Sodium (137-145) mmol/L Potassium 2.7 L* (3.5-5.1) mmol/L Chloride (98-107) mmol/L Carbon Dioxide (22-30) mmol/L Anion Gap (5-15) MEQ/L BUN (9-20) mg/dL Creatinine (0.66-1.25) mg/dL Estimated GFR ML/MIN Glucose (74-106) mg/dL POC Glucometer (74 to 106) mg/dL Calcium (8.4-10.2) mg/dL Magnesium 2.1 (1.6-2.3) mg/dL Total Bilirubin (0.2-1.3) mg/dL AST (17-59) U/L ALT (0-50) U/L Alkaline Phosphatase (38-126) U/L Troponin I < 0.012 (0.000-0.034) ng/mL NT-Pro-B Natriuret Pep (0-900) pg/mL Serum Total Protein (6.3-8.2) g/dL Albumin (3.5-5.0) g/dL Triglycerides (30-150) mg/dL Cholesterol (50-200) mg/dL LDL Cholesterol (30-100) mg/dL HDL Cholesterol (40-60) mg/dL Heart Disease Risk Ratio Urinalys Dipstick Clnc Urine Color (YELLOW) Urine Appearance (CLEAR) Urine pH (5-6) Ur Specific [place] (1.005-1.025) POC Urine Protein Conf (Negative) Urine Ketones (NEGATIVE) Urine Nitrite (NEGATIVE) Urine Bilirubin (NEGATIVE) Urine Urobilinogen (0-1) mg/dL Urine Leukocytes (NEGATIVE) Urine WBC (Auto) (0-5) /HPF Urine RBC (Auto) (0-2) /HPF U Hyaline Cast (Auto) (0-2) /LPF U Epithel Cells (Auto) (FEW) /HPF Urine Bacteria (Auto) (NEGATIVE) /HPF Urine RBC (0-5) Arpan/ul Urine Mucus (Auto) (NEGATIVE) /HPF Ur Culture Indicated? Urine Glucose (NEGATIVE) mg/dL Urine Opiates Level (NEGATIVE) Ur Methadone (NEGATIVE) Urine Barbiturates (NEGATIVE) Ur Phencyclidine (PCP) (NEGATIVE) Urine Amphetamine (NEGATIVE) U Benzodiazepine Level (NEGATIVE) Urine Cocaine (NEGATIVE) Urine Marijuana (THC) (NEGATIVE) Influenza Type A Ag (NEGATIVE) Influenza Type B Ag (NEGATIVE) RSV (PCR) (Negative) SARS-CoV-2 (PCR) (NEGATIVE) 09/26/21 09/26/21 09/26/21 Range/Units 04:00 04:00 07:47 WBC (4.0-10.5) K/mm3 RBC (4.1-5.6) M/mm3 Hgb (12.5-18.0) gm/dl Hct (42-50) % MCV (78-100) fl MCH (26-32) pg MCHC (32-36) g/dl RDW (11.5-14.0) % Plt Count (150-450) K/mm3 MPV (7.5-11.0) fl Gran % (36.0-66.0) % Eos # (Auto) (0-0.5) Absolute Lymphs (auto) (1.0-4.6) Absolute Monos (auto) (0.0-1.3) Lymphocytes % (24.0-44.0) % Monocytes % (0.0-12.0) % Eosinophils % (0.00-5.0) % Basophils % (0.0-0.4) % Absolute Granulocytes (1.4-6.9) Basophils # (0-0.4) D-Dimer (215-500) ng/mL Sodium (137-145) mmol/L Potassium (3.5-5.1) mmol/L Chloride (98-107) mmol/L Carbon Dioxide (22-30) mmol/L Anion Gap (5-15) MEQ/L BUN (9-20) mg/dL Creatinine (0.66-1.25) mg/dL Estimated GFR ML/MIN Glucose (74-106) mg/dL POC Glucometer 129 H (74 to 106) mg/dL Calcium (8.4-10.2) mg/dL Magnesium (1.6-2.3) mg/dL Total Bilirubin (0.2-1.3) mg/dL AST (17-59) U/L ALT (0-50) U/L Alkaline Phosphatase (38-126) U/L Troponin I < 0.012 (0.000-0.034) ng/mL NT-Pro-B Natriuret Pep (0-900) pg/mL Serum Total Protein (6.3-8.2) g/dL Albumin (3.5-5.0) g/dL Triglycerides 183 H (30-150) mg/dL Cholesterol 146 (50-200) mg/dL LDL Cholesterol 78 (30-100) mg/dL HDL Cholesterol 23 L (40-60) mg/dL Heart Disease Risk Ratio 6.2 Urinalys Dipstick Clnc Urine Color (YELLOW) Urine Appearance (CLEAR) Urine pH (5-6) Ur Specific [place] (1.005-1.025) POC Urine Protein Conf (Negative) Urine Ketones (NEGATIVE) Urine Nitrite (NEGATIVE) Urine Bilirubin (NEGATIVE) Urine Urobilinogen (0-1) mg/dL Urine Leukocytes (NEGATIVE) Urine WBC (Auto) (0-5) /HPF Urine RBC (Auto) (0-2) /HPF U Hyaline Cast (Auto) (0-2) /LPF U Epithel Cells (Auto) (FEW) /HPF Urine Bacteria (Auto) (NEGATIVE) /HPF Urine RBC (0-5) Arpan/ul Urine Mucus (Auto) (NEGATIVE) /HPF Ur Culture Indicated? Urine Glucose (NEGATIVE) mg/dL Urine Opiates Level (NEGATIVE) Ur Methadone (NEGATIVE) Urine Barbiturates (NEGATIVE) Ur Phencyclidine (PCP) (NEGATIVE) Urine Amphetamine (NEGATIVE) U Benzodiazepine Level (NEGATIVE) Urine Cocaine (NEGATIVE) Urine Marijuana (THC) (NEGATIVE) Influenza Type A Ag (NEGATIVE) Influenza Type B Ag (NEGATIVE) RSV (PCR) (Negative) SARS-CoV-2 (PCR) (NEGATIVE) 09/26/21 09/26/21 Range/Units 08:46 08:56 WBC 9.1 (4.0-10.5) K/mm3 RBC 4.80 (4.1-5.6) M/mm3 Hgb 14.7 (12.5-18.0) gm/dl Hct 44.0 (42-50) % MCV 91.7 (78-100) fl MCH 30.6 (26-32) pg MCHC 33.4 (32-36) g/dl RDW 13.3 (11.5-14.0) % Plt Count 287 (150-450) K/mm3 MPV 10.2 (7.5-11.0) fl Gran % 70.3 H (36.0-66.0) % Eos # (Auto) 0.25 (0-0.5) Absolute Lymphs (auto) 1.54 (1.0-4.6) Absolute Monos (auto) 0.84 (0.0-1.3) Lymphocytes % 17.0 L (24.0-44.0) % Monocytes % 9.3 (0.0-12.0) % Eosinophils % 2.8 (0.00-5.0) % Basophils % 0.6 (0.0-0.4) % Absolute Granulocytes 6.37 (1.4-6.9) Basophils # 0.05 (0-0.4) D-Dimer (215-500) ng/mL Sodium 138 (137-145) mmol/L Potassium 3.0 L* (3.5-5.1) mmol/L Chloride 101 (98-107) mmol/L Carbon Dioxide 30 (22-30) mmol/L Anion Gap 9.9 (5-15) MEQ/L BUN 8 L (9-20) mg/dL Creatinine 0.65 L (0.66-1.25) mg/dL Estimated GFR > 60.0 ML/MIN Glucose 132 H (74-106) mg/dL POC Glucometer (74 to 106) mg/dL Calcium 8.3 L (8.4-10.2) mg/dL Magnesium (1.6-2.3) mg/dL Total Bilirubin (0.2-1.3) mg/dL AST (17-59) U/L ALT (0-50) U/L Alkaline Phosphatase (38-126) U/L Troponin I (0.000-0.034) ng/mL NT-Pro-B Natriuret Pep (0-900) pg/mL Serum Total Protein (6.3-8.2) g/dL Albumin (3.5-5.0) g/dL Triglycerides (30-150) mg/dL Cholesterol (50-200) mg/dL LDL Cholesterol (30-100) mg/dL HDL Cholesterol (40-60) mg/dL Heart Disease Risk Ratio Urinalys Dipstick Clnc Urine Color (YELLOW) Urine Appearance (CLEAR) Urine pH (5-6) Ur Specific [place] (1.005-1.025) POC Urine Protein Conf (Negative) Urine Ketones (NEGATIVE) Urine Nitrite (NEGATIVE) Urine Bilirubin (NEGATIVE) Urine Urobilinogen (0-1) mg/dL Urine Leukocytes (NEGATIVE) Urine WBC (Auto) (0-5) /HPF Urine RBC (Auto) (0-2) /HPF U Hyaline Cast (Auto) (0-2) /LPF U Epithel Cells (Auto) (FEW) /HPF Urine Bacteria (Auto) (NEGATIVE) /HPF Urine RBC (0-5) Arpan/ul Urine Mucus (Auto) (NEGATIVE) /HPF Ur Culture Indicated? Urine Glucose (NEGATIVE) mg/dL Urine Opiates Level (NEGATIVE) Ur Methadone (NEGATIVE) Urine Barbiturates (NEGATIVE) Ur Phencyclidine (PCP) (NEGATIVE) Urine Amphetamine (NEGATIVE) U Benzodiazepine Level (NEGATIVE) Urine Cocaine (NEGATIVE) Urine Marijuana (THC) (NEGATIVE) Influenza Type A Ag (NEGATIVE) Influenza Type B Ag (NEGATIVE) RSV (PCR) (Negative) SARS-CoV-2 (PCR) (NEGATIVE) - Radiology Impressions Radiology Exams & Impressions: Radiology Procedures Category Date Time Status CAROTID BILATERAL [US] Routine Exams 09/26/21 Ordered CHEST 1 VIEW (PORTABLE) Stat Exams 09/25/21 14:09 Completed CHEST WITH CONTRAST [CT] Stat Exams 09/25/21 15:39 Completed ECHO W/2D AND DOPPLER [US] Routine Exams 09/26/21 Ordered HEAD WITHOUT CONTRAST [CT] Stat Exams 09/25/21 14:12 Completed MRI BRAIN W & W/O CONTRAST [MRI] Routine Exams 09/26/21 08:58 Ordered VENOUS BILATERAL EXTREMITY [US] Routine Exams 09/26/21 Ordered - Other Procedures and Tests Respiratory Therapy 09/27/21 05:00 EKG ROUTINE 09/28/21 05:00 EKG ROUTINE Assessment/Plan (1) TIA (transient ischemic attack) Current Visit: Yes Status: Acute Assessment & Plan: Will do workup, discuss continuing DOAC, and have pt f/u with Dr. Jerod Cummins. Code(s): G45.9 - TRANSIENT CEREBRAL ISCHEMIC ATTACK, UNSPECIFIED (2) Hypokalemia Current Visit: Yes Status: Resolved Code(s): E87.6 - HYPOKALEMIA (3) Chest pain Current Visit: Yes Status: Resolved Qualifiers: Chest pain type: unspecified Qualified Code(s): R07.9 - Chest pain, unspecified Assessment & Plan: med reaction to potassium Code(s): R07.9 - CHEST PAIN, UNSPECIFIED (4) Leukocytosis Current Visit: Yes Status: Chronic Qualifiers: Leukocytosis type: unspecified Qualified Code(s): D72.829 - Elevated white blood cell count, unspecified Code(s): D72.829 - ELEVATED WHITE BLOOD CELL COUNT, UNSPECIFIED (5) Diabetes mellitus Current Visit: No Status: Chronic Qualifiers: Diabetes mellitus type: type 2 Diabetes mellitus watermelon inspector insulin use: without watermelon inspector use Diabetes mellitus complication status: without complication Qualified Code(s): E11.9 - Type 2 diabetes mellitus without complications Code(s): E11.9 - TYPE 2 DIABETES MELLITUS WITHOUT COMPLICATIONS (6) Hypothyroid Current Visit: No Status: Chronic Qualifiers: Hypothyroidism type: acquired Qualified Code(s): E03.9 - Hypothyroidism, unspecified Code(s): E03.9 - HYPOTHYROIDISM, UNSPECIFIED Hospital Summary - Hospital Course Hospital Course: Pt is 61 yo male with hx afib (on ASA 81mg ) who was admitted through ER with TIA sx. MRI, echo, carotid dopplers to be done today. Was on Eliquis previously, had GI bleeding and was changed to ASA 81mg daily by Dr. Galvez. He will be sent home with 48h holter monitor and will discuss eliquis v xarelto with pt again. He will be sent home on po potassium and should recheck in several days (was 2.7 initially). Will f/u outpatient with Dr. Jerod Cummins. - Vitals & Intake/Output Vital Signs: Vital Signs Temperature 97.8 F 09/26/21 07:20 Pulse Rate 76 09/26/21 07:20 Respiratory Rate 20 09/26/21 07:20 Blood Pressure 103/64 09/26/21 07:20 O2 Sat by Pulse Oximetry 96 09/26/21 07:20 Intake & Output: Intake & Output 09/23/21 09/24/21 09/25/21 09/26/21 11:59 11:59 11:59 11:59 Intake Total 1646 Balance 1646 Weight 144 kg - Lab Result Diagrams: 09/26/21 08:56 09/26/21 08:46 Lab Results-Last 24 Hrs: Lab Results-Last 24 Hours 09/25/21 09/25/21 09/25/21 Range/Units 14:08 14:15 14:15 WBC 13.1 H (4.0-10.5) K/mm3 RBC 4.86 (4.1-5.6) M/mm3 Hgb 15.0 (12.5-18.0) gm/dl Hct 43.7 (42-50) % MCV 89.9 (78-100) fl MCH 30.9 (26-32) pg MCHC 34.3 (32-36) g/dl RDW 13.3 (11.5-14.0) % Plt Count 308 (150-450) K/mm3 MPV 10.0 (7.5-11.0) fl Gran % 71.4 H (36.0-66.0) % Eos # (Auto) 0.19 (0-0.5) Absolute Lymphs (auto) 2.42 (1.0-4.6) Absolute Monos (auto) 1.13 (0.0-1.3) Lymphocytes % 18.4 L (24.0-44.0) % Monocytes % 8.6 (0.0-12.0) % Eosinophils % 1.4 (0.00-5.0) % Basophils % 0.2 (0.0-0.4) % Absolute Granulocytes 9.37 H (1.4-6.9) Basophils # 0.03 (0-0.4) D-Dimer (215-500) ng/mL Sodium 138 (137-145) mmol/L Potassium 2.7 L* (3.5-5.1) mmol/L Chloride 99 (98-107) mmol/L Carbon Dioxide 26 (22-30) mmol/L Anion Gap 15.1 H (5-15) MEQ/L BUN 12 (9-20) mg/dL Creatinine 0.79 (0.66-1.25) mg/dL Estimated GFR > 60.0 ML/MIN Glucose 209 H (74-106) mg/dL POC Glucometer (74 to 106) mg/dL Calcium 8.6 (8.4-10.2) mg/dL Magnesium (1.6-2.3) mg/dL Total Bilirubin 1.00 (0.2-1.3) mg/dL AST 25 (17-59) U/L ALT 21 (0-50) U/L Alkaline Phosphatase 84 (38-126) U/L Troponin I < 0.012 (0.000-0.034) ng/mL NT-Pro-B Natriuret Pep 40.2 (0-900) pg/mL Serum Total Protein 7.0 (6.3-8.2) g/dL Albumin 4.0 (3.5-5.0) g/dL Triglycerides (30-150) mg/dL Cholesterol (50-200) mg/dL LDL Cholesterol (30-100) mg/dL HDL Cholesterol (40-60) mg/dL Heart Disease Risk Ratio Urinalys Dipstick Clnc Urine Color (YELLOW) Urine Appearance (CLEAR) Urine pH (5-6) Ur Specific [place] (1.005-1.025) POC Urine Protein Conf (Negative) Urine Ketones (NEGATIVE) Urine Nitrite (NEGATIVE) Urine Bilirubin (NEGATIVE) Urine Urobilinogen (0-1) mg/dL Urine Leukocytes (NEGATIVE) Urine WBC (Auto) (0-5) /HPF Urine RBC (Auto) (0-2) /HPF U Hyaline Cast (Auto) (0-2) /LPF U Epithel Cells (Auto) (FEW) /HPF Urine Bacteria (Auto) (NEGATIVE) /HPF Urine RBC (0-5) Arpan/ul Urine Mucus (Auto) (NEGATIVE) /HPF Ur Culture Indicated? Urine Glucose (NEGATIVE) mg/dL Urine Opiates Level (NEGATIVE) Ur Methadone (NEGATIVE) Urine Barbiturates (NEGATIVE) Ur Phencyclidine (PCP) (NEGATIVE) Urine Amphetamine (NEGATIVE) U Benzodiazepine Level (NEGATIVE) Urine Cocaine (NEGATIVE) Urine Marijuana (THC) (NEGATIVE) Influenza Type A Ag (NEGATIVE) Influenza Type B Ag (NEGATIVE) RSV (PCR) (Negative) SARS-CoV-2 (PCR) (NEGATIVE) 09/25/21 09/25/21 09/25/21 Range/Units 14:42 15:08 15:09 WBC (4.0-10.5) K/mm3 RBC (4.1-5.6) M/mm3 Hgb (12.5-18.0) gm/dl Hct (42-50) % MCV (78-100) fl MCH (26-32) pg MCHC (32-36) g/dl RDW (11.5-14.0) % Plt Count (150-450) K/mm3 MPV (7.5-11.0) fl Gran % (36.0-66.0) % Eos # (Auto) (0-0.5) Absolute Lymphs (auto) (1.0-4.6) Absolute Monos (auto) (0.0-1.3) Lymphocytes % (24.0-44.0) % Monocytes % (0.0-12.0) % Eosinophils % (0.00-5.0) % Basophils % (0.0-0.4) % Absolute Granulocytes (1.4-6.9) Basophils # (0-0.4) D-Dimer (215-500) ng/mL Sodium (137-145) mmol/L Potassium (3.5-5.1) mmol/L Chloride (98-107) mmol/L Carbon Dioxide (22-30) mmol/L Anion Gap (5-15) MEQ/L BUN (9-20) mg/dL Creatinine (0.66-1.25) mg/dL Estimated GFR ML/MIN Glucose (74-106) mg/dL POC Glucometer (74 to 106) mg/dL Calcium (8.4-10.2) mg/dL Magnesium (1.6-2.3) mg/dL Total Bilirubin (0.2-1.3) mg/dL AST (17-59) U/L ALT (0-50) U/L Alkaline Phosphatase (38-126) U/L Troponin I (0.000-0.034) ng/mL NT-Pro-B Natriuret Pep (0-900) pg/mL Serum Total Protein (6.3-8.2) g/dL Albumin (3.5-5.0) g/dL Triglycerides (30-150) mg/dL Cholesterol (50-200) mg/dL LDL Cholesterol (30-100) mg/dL HDL Cholesterol (40-60) mg/dL Heart Disease Risk Ratio Urinalys Dipstick Clnc MAIN LAB Urine Color YELLOW (YELLOW) Urine Appearance CLEAR (CLEAR) Urine pH 5.5 (5-6) Ur Specific [place] 1.015 (1.005-1.025) POC Urine Protein Conf NEGATIVE (Negative) Urine Ketones NEGATIVE (NEGATIVE) Urine Nitrite NEGATIVE (NEGATIVE) Urine Bilirubin NEGATIVE (NEGATIVE) Urine Urobilinogen 0.2 (0-1) mg/dL Urine Leukocytes NEGATIVE (NEGATIVE) Urine WBC (Auto) NONE (0-5) /HPF Urine RBC (Auto) NONE (0-2) /HPF U Hyaline Cast (Auto) 6-10 (0-2) /LPF U Epithel Cells (Auto) NONE (FEW) /HPF Urine Bacteria (Auto) FEW (NEGATIVE) /HPF Urine RBC NEGATIVE (0-5) Arpan/ul Urine Mucus (Auto) SLIGHT (NEGATIVE) /HPF Ur Culture Indicated? NO Urine Glucose NEGATIVE (NEGATIVE) mg/dL Urine Opiates Level NEGATIVE (NEGATIVE) Ur Methadone NEGATIVE (NEGATIVE) Urine Barbiturates NEGATIVE (NEGATIVE) Ur Phencyclidine (PCP) NEGATIVE (NEGATIVE) Urine Amphetamine NEGATIVE (NEGATIVE) U Benzodiazepine Level NEGATIVE (NEGATIVE) Urine Cocaine NEGATIVE (NEGATIVE) Urine Marijuana (THC) NEGATIVE (NEGATIVE) Influenza Type A Ag NEGATIVE (NEGATIVE) Influenza Type B Ag NEGATIVE (NEGATIVE) RSV (PCR) NEGATIVE (Negative) SARS-CoV-2 (PCR) NEGATIVE (NEGATIVE) 09/25/21 09/25/21 09/25/21 Range/Units 15:23 17:40 20:55 WBC (4.0-10.5) K/mm3 RBC (4.1-5.6) M/mm3 Hgb (12.5-18.0) gm/dl Hct (42-50) % MCV (78-100) fl MCH (26-32) pg MCHC (32-36) g/dl RDW (11.5-14.0) % Plt Count (150-450) K/mm3 MPV (7.5-11.0) fl Gran % (36.0-66.0) % Eos # (Auto) (0-0.5) Absolute Lymphs (auto) (1.0-4.6) Absolute Monos (auto) (0.0-1.3) Lymphocytes % (24.0-44.0) % Monocytes % (0.0-12.0) % Eosinophils % (0.00-5.0) % Basophils % (0.0-0.4) % Absolute Granulocytes (1.4-6.9) Basophils # (0-0.4) D-Dimer 1255 H* (215-500) ng/mL Sodium (137-145) mmol/L Potassium (3.5-5.1) mmol/L Chloride (98-107) mmol/L Carbon Dioxide (22-30) mmol/L Anion Gap (5-15) MEQ/L BUN (9-20) mg/dL Creatinine (0.66-1.25) mg/dL Estimated GFR ML/MIN Glucose (74-106) mg/dL POC Glucometer (74 to 106) mg/dL Calcium (8.4-10.2) mg/dL Magnesium (1.6-2.3) mg/dL Total Bilirubin (0.2-1.3) mg/dL AST (17-59) U/L ALT (0-50) U/L Alkaline Phosphatase (38-126) U/L Troponin I < 0.012 < 0.012 (0.000-0.034) ng/mL NT-Pro-B Natriuret Pep (0-900) pg/mL Serum Total Protein (6.3-8.2) g/dL Albumin (3.5-5.0) g/dL Triglycerides (30-150) mg/dL Cholesterol (50-200) mg/dL LDL Cholesterol (30-100) mg/dL HDL Cholesterol (40-60) mg/dL Heart Disease Risk Ratio Urinalys Dipstick Clnc Urine Color (YELLOW) Urine Appearance (CLEAR) Urine pH (5-6) Ur Specific [place] (1.005-1.025) POC Urine Protein Conf (Negative) Urine Ketones (NEGATIVE) Urine Nitrite (NEGATIVE) Urine Bilirubin (NEGATIVE) Urine Urobilinogen (0-1) mg/dL Urine Leukocytes (NEGATIVE) Urine WBC (Auto) (0-5) /HPF Urine RBC (Auto) (0-2) /HPF U Hyaline Cast (Auto) (0-2) /LPF U Epithel Cells (Auto) (FEW) /HPF Urine Bacteria (Auto) (NEGATIVE) /HPF Urine RBC (0-5) Arpan/ul Urine Mucus (Auto) (NEGATIVE) /HPF Ur Culture Indicated? Urine Glucose (NEGATIVE) mg/dL Urine Opiates Level (NEGATIVE) Ur Methadone (NEGATIVE) Urine Barbiturates (NEGATIVE) Ur Phencyclidine (PCP) (NEGATIVE) Urine Amphetamine (NEGATIVE) U Benzodiazepine Level (NEGATIVE) Urine Cocaine (NEGATIVE) Urine Marijuana (THC) (NEGATIVE) Influenza Type A Ag (NEGATIVE) Influenza Type B Ag (NEGATIVE) RSV (PCR) (Negative) SARS-CoV-2 (PCR) (NEGATIVE) 09/25/21 09/25/21 09/26/21 Range/Units 23:40 23:40 00:01 WBC (4.0-10.5) K/mm3 RBC (4.1-5.6) M/mm3 Hgb (12.5-18.0) gm/dl Hct (42-50) % MCV (78-100) fl MCH (26-32) pg MCHC (32-36) g/dl RDW (11.5-14.0) % Plt Count (150-450) K/mm3 MPV (7.5-11.0) fl Gran % (36.0-66.0) % Eos # (Auto) (0-0.5) Absolute Lymphs (auto) (1.0-4.6) Absolute Monos (auto) (0.0-1.3) Lymphocytes % (24.0-44.0) % Monocytes % (0.0-12.0) % Eosinophils % (0.00-5.0) % Basophils % (0.0-0.4) % Absolute Granulocytes (1.4-6.9) Basophils # (0-0.4) D-Dimer (215-500) ng/mL Sodium (137-145) mmol/L Potassium 2.7 L* (3.5-5.1) mmol/L Chloride (98-107) mmol/L Carbon Dioxide (22-30) mmol/L Anion Gap (5-15) MEQ/L BUN (9-20) mg/dL Creatinine (0.66-1.25) mg/dL Estimated GFR ML/MIN Glucose (74-106) mg/dL POC Glucometer (74 to 106) mg/dL Calcium (8.4-10.2) mg/dL Magnesium 2.1 (1.6-2.3) mg/dL Total Bilirubin (0.2-1.3) mg/dL AST (17-59) U/L ALT (0-50) U/L Alkaline Phosphatase (38-126) U/L Troponin I < 0.012 (0.000-0.034) ng/mL NT-Pro-B Natriuret Pep (0-900) pg/mL Serum Total Protein (6.3-8.2) g/dL Albumin (3.5-5.0) g/dL Triglycerides (30-150) mg/dL Cholesterol (50-200) mg/dL LDL Cholesterol (30-100) mg/dL HDL Cholesterol (40-60) mg/dL Heart Disease Risk Ratio Urinalys Dipstick Clnc Urine Color (YELLOW) Urine Appearance (CLEAR) Urine pH (5-6) Ur Specific [place] (1.005-1.025) POC Urine Protein Conf (Negative) Urine Ketones (NEGATIVE) Urine Nitrite (NEGATIVE) Urine Bilirubin (NEGATIVE) Urine Urobilinogen (0-1) mg/dL Urine Leukocytes (NEGATIVE) Urine WBC (Auto) (0-5) /HPF Urine RBC (Auto) (0-2) /HPF U Hyaline Cast (Auto) (0-2) /LPF U Epithel Cells (Auto) (FEW) /HPF Urine Bacteria (Auto) (NEGATIVE) /HPF Urine RBC (0-5) Arpan/ul Urine Mucus (Auto) (NEGATIVE) /HPF Ur Culture Indicated? Urine Glucose (NEGATIVE) mg/dL Urine Opiates Level (NEGATIVE) Ur Methadone (NEGATIVE) Urine Barbiturates (NEGATIVE) Ur Phencyclidine (PCP) (NEGATIVE) Urine Amphetamine (NEGATIVE) U Benzodiazepine Level (NEGATIVE) Urine Cocaine (NEGATIVE) Urine Marijuana (THC) (NEGATIVE) Influenza Type A Ag (NEGATIVE) Influenza Type B Ag (NEGATIVE) RSV (PCR) (Negative) SARS-CoV-2 (PCR) (NEGATIVE) 09/26/21 09/26/21 09/26/21 Range/Units 04:00 04:00 07:47 WBC (4.0-10.5) K/mm3 RBC (4.1-5.6) M/mm3 Hgb (12.5-18.0) gm/dl Hct (42-50) % MCV (78-100) fl MCH (26-32) pg MCHC (32-36) g/dl RDW (11.5-14.0) % Plt Count (150-450) K/mm3 MPV (7.5-11.0) fl Gran % (36.0-66.0) % Eos # (Auto) (0-0.5) Absolute Lymphs (auto) (1.0-4.6) Absolute Monos (auto) (0.0-1.3) Lymphocytes % (24.0-44.0) % Monocytes % (0.0-12.0) % Eosinophils % (0.00-5.0) % Basophils % (0.0-0.4) % Absolute Granulocytes (1.4-6.9) Basophils # (0-0.4) D-Dimer (215-500) ng/mL Sodium (137-145) mmol/L Potassium (3.5-5.1) mmol/L Chloride (98-107) mmol/L Carbon Dioxide (22-30) mmol/L Anion Gap (5-15) MEQ/L BUN (9-20) mg/dL Creatinine (0.66-1.25) mg/dL Estimated GFR ML/MIN Glucose (74-106) mg/dL POC Glucometer 129 H (74 to 106) mg/dL Calcium (8.4-10.2) mg/dL Magnesium (1.6-2.3) mg/dL Total Bilirubin (0.2-1.3) mg/dL AST (17-59) U/L ALT (0-50) U/L Alkaline Phosphatase (38-126) U/L Troponin I < 0.012 (0.000-0.034) ng/mL NT-Pro-B Natriuret Pep (0-900) pg/mL Serum Total Protein (6.3-8.2) g/dL Albumin (3.5-5.0) g/dL Triglycerides 183 H (30-150) mg/dL Cholesterol 146 (50-200) mg/dL LDL Cholesterol 78 (30-100) mg/dL HDL Cholesterol 23 L (40-60) mg/dL Heart Disease Risk Ratio 6.2 Urinalys Dipstick Clnc Urine Color (YELLOW) Urine Appearance (CLEAR) Urine pH (5-6) Ur Specific [place] (1.005-1.025) POC Urine Protein Conf (Negative) Urine Ketones (NEGATIVE) Urine Nitrite (NEGATIVE) Urine Bilirubin (NEGATIVE) Urine Urobilinogen (0-1) mg/dL Urine Leukocytes (NEGATIVE) Urine WBC (Auto) (0-5) /HPF Urine RBC (Auto) (0-2) /HPF U Hyaline Cast (Auto) (0-2) /LPF U Epithel Cells (Auto) (FEW) /HPF Urine Bacteria (Auto) (NEGATIVE) /HPF Urine RBC (0-5) Arpan/ul Urine Mucus (Auto) (NEGATIVE) /HPF Ur Culture Indicated? Urine Glucose (NEGATIVE) mg/dL Urine Opiates Level (NEGATIVE) Ur Methadone (NEGATIVE) Urine Barbiturates (NEGATIVE) Ur Phencyclidine (PCP) (NEGATIVE) Urine Amphetamine (NEGATIVE) U Benzodiazepine Level (NEGATIVE) Urine Cocaine (NEGATIVE) Urine Marijuana (THC) (NEGATIVE) Influenza Type A Ag (NEGATIVE) Influenza Type B Ag (NEGATIVE) RSV (PCR) (Negative) SARS-CoV-2 (PCR) (NEGATIVE) 09/26/21 09/26/21 Range/Units 08:46 08:56 WBC 9.1 (4.0-10.5) K/mm3 RBC 4.80 (4.1-5.6) M/mm3 Hgb 14.7 (12.5-18.0) gm/dl Hct 44.0 (42-50) % MCV 91.7 (78-100) fl MCH 30.6 (26-32) pg MCHC 33.4 (32-36) g/dl RDW 13.3 (11.5-14.0) % Plt Count 287 (150-450) K/mm3 MPV 10.2 (7.5-11.0) fl Gran % 70.3 H (36.0-66.0) % Eos # (Auto) 0.25 (0-0.5) Absolute Lymphs (auto) 1.54 (1.0-4.6) Absolute Monos (auto) 0.84 (0.0-1.3) Lymphocytes % 17.0 L (24.0-44.0) % Monocytes % 9.3 (0.0-12.0) % Eosinophils % 2.8 (0.00-5.0) % Basophils % 0.6 (0.0-0.4) % Absolute Granulocytes 6.37 (1.4-6.9) Basophils # 0.05 (0-0.4) D-Dimer (215-500) ng/mL Sodium 138 (137-145) mmol/L Potassium 3.0 L* (3.5-5.1) mmol/L Chloride 101 (98-107) mmol/L Carbon Dioxide 30 (22-30) mmol/L Anion Gap 9.9 (5-15) MEQ/L BUN 8 L (9-20) mg/dL Creatinine 0.65 L (0.66-1.25) mg/dL Estimated GFR > 60.0 ML/MIN Glucose 132 H (74-106) mg/dL POC Glucometer (74 to 106) mg/dL Calcium 8.3 L (8.4-10.2) mg/dL Magnesium (1.6-2.3) mg/dL Total Bilirubin (0.2-1.3) mg/dL AST (17-59) U/L ALT (0-50) U/L Alkaline Phosphatase (38-126) U/L Troponin I (0.000-0.034) ng/mL NT-Pro-B Natriuret Pep (0-900) pg/mL Serum Total Protein (6.3-8.2) g/dL Albumin (3.5-5.0) g/dL Triglycerides (30-150) mg/dL Cholesterol (50-200) mg/dL LDL Cholesterol (30-100) mg/dL HDL Cholesterol (40-60) mg/dL Heart Disease Risk Ratio Urinalys Dipstick Clnc Urine Color (YELLOW) Urine Appearance (CLEAR) Urine pH (5-6) Ur Specific [place] (1.005-1.025) POC Urine Protein Conf (Negative) Urine Ketones (NEGATIVE) Urine Nitrite (NEGATIVE) Urine Bilirubin (NEGATIVE) Urine Urobilinogen (0-1) mg/dL Urine Leukocytes (NEGATIVE) Urine WBC (Auto) (0-5) /HPF Urine RBC (Auto) (0-2) /HPF U Hyaline Cast (Auto) (0-2) /LPF U Epithel Cells (Auto) (FEW) /HPF Urine Bacteria (Auto) (NEGATIVE) /HPF Urine RBC (0-5) Arpan/ul Urine Mucus (Auto) (NEGATIVE) /HPF Ur Culture Indicated? Urine Glucose (NEGATIVE) mg/dL Urine Opiates Level (NEGATIVE) Ur Methadone (NEGATIVE) Urine Barbiturates (NEGATIVE) Ur Phencyclidine (PCP) (NEGATIVE) Urine Amphetamine (NEGATIVE) U Benzodiazepine Level (NEGATIVE) Urine Cocaine (NEGATIVE) Urine Marijuana (THC) (NEGATIVE) Influenza Type A Ag (NEGATIVE) Influenza Type B Ag (NEGATIVE) RSV (PCR) (Negative) SARS-CoV-2 (PCR) (NEGATIVE) - Radiology Exams Ordered Rad Exams-Entire Visit: Radiology Procedures Category Date Time Status CAROTID BILATERAL [US] Routine Exams 09/26/21 Ordered CHEST 1 VIEW (PORTABLE) Stat Exams 09/25/21 14:09 Completed CHEST WITH CONTRAST [CT] Stat Exams 09/25/21 15:39 Completed ECHO W/2D AND DOPPLER [US] Routine Exams 09/26/21 Ordered HEAD WITHOUT CONTRAST [CT] Stat Exams 09/25/21 14:12 Completed MRI BRAIN W & W/O CONTRAST [MRI] Routine Exams 09/26/21 08:58 Ordered VENOUS BILATERAL EXTREMITY [US] Routine Exams 09/26/21 Ordered - Procedures and Test Procedures and Tests throughout Hospitalization: Therapy Orders & Screens 09/25/21 20:09 EKG [id number],PRN Comment: 09/25/21 22:08 EKG ROUTINE Comment: Diagnosis: TIA 09/26/21 05:00 EKG DAILY Comment: Diagnosis: TIA 09/27/21 05:00 EKG ROUTINE Comment: Diagnosis: TIA 09/28/21 05:00 EKG ROUTINE Comment: Diagnosis: TIA - Discharge Disposition: Home, Self-Care Condition: Stable Prescriptions: No Action Furosemide 40 mg [Lasix 40 MG] 40 mg PO BID Thyroid,Pork [Vina Thyroid] 120 mg PO DAILY Metoprolol Tartrate 25 mg PO HS Metformin HCl 500 mg [Glucophage 500 MG] 1,000 mg PO BID Aspirin EC 81 mg [Ecotrin 81 mg] 81 mg PO DAILY #0 Follow up with: FEDERICA SANCHEZ [Primary Care Provider] -
[2021-09-26 11:19] VITALS: O2SAT 95
--- NOTE | 2021-09-26 11:31 | XRAY ---
Indication: TIA. Two-dimensional sonogram and color Doppler imaging of the major venous vessels of the left and right leg performed. Comparison: None No thrombus seen in the examined deep venous vessels of the left and right leg including greater saphenous vein. Veins demonstrate normal compressibility. Venous waveforms are normal with and without augmentation. Impression: Left and right legs negative for DVT.
[2021-09-26 15:13] VITALS: BP 126/65; PULSE 73
--- NOTE | 2021-09-26 16:31 | XRAY ---
Indication: TIA. Negative CT head exam one day earlier. Sagittal, coronal, and axial MRI brain performed using pre and post T1, T2, FLAIR, diffusion, and ADC sequences. 28 cc Dotarem contrast used. Comparison: None Ventriculosulcal pattern appears symmetric with age-appropriate global atrophy and minimal periventricular degenerative micro-ischemia. No acute intracranial hemorrhage, abnormal extra-axial fluid collection, or mass effect. Diffusion images are negative for restricted signal. Following gadolinium, there is no abnormal enhancing intra or extra-axial mass. Fourth ventricle is midline without hydrocephalus. Normal flow void signal within the major intracerebral circulation. 7/8 cranial nerve complex bilaterally symmetric. Normal appearing craniocervical junction and sella turcica. Minimal/mild mucosal thickening both ethmoid and both maxillary sinuses without fluid leveling. Impression: 1. Normal aging brain including atrophy and degenerative micro-ischemia. 2. Remaining MRI brain with contrast exam is negative. 3. Incidental paranasal sinus disease.
[2021-09-26 16:39] LABS: ANION GAP 9.2 MEQ/L (5-15); BLOOD UREA NITROGEN 12 mg/dL (9-20); CHLORIDE 100 mmol/L (98-107); Calcium 8.1 mg/dL (8.4-10.2); Carbon Dioxide 32 mmol/L (22-30); Creatinine 1 0.74 mg/dL (0.66-1.25); EST GLOMERULAR FILTRATION RATE > 60.0 ML/MIN; Glucose 143 mg/dL (74-106); Potassium 3.2 mmol/L (3.5-5.1); SODIUM 138 mmol/L (137-145)
--- NOTE | 2021-09-26 17:00 | PCM.DCORD ---
- Discharge Disposition: Home, Self-Care Condition: Good Prescriptions: New Potassium Chloride 20 meq PO BID #60 cap Rivaroxaban [Xarelto] 20 mg PO DAILY #30 tablet Continue Furosemide 40 mg [Lasix 40 MG] 40 mg PO BID Thyroid,Pork [Powderly Thyroid] 120 mg PO DAILY Metoprolol Tartrate 25 mg PO HS Metformin HCl 500 mg [Glucophage 500 MG] 1,000 mg PO BID Discontinued Aspirin EC 81 mg [Ecotrin 81 mg] 81 mg PO DAILY #0 Follow up with: FEDERICA SANCHEZ [Primary Care Provider] -
[2021-09-26] MEDS ORDERED: XARELTO 10 MG TABLET PO ONE (17:04)
[2021-09-26] MEDS ORDERED: Lopressor 25MG Tab PO SCH (22:00)
[2021-09-26] MEDS ORDERED: Lopressor 25MG Tab PO ONE (22:00)
[2021-09-27] MEDS ORDERED: THYROID PORK 120 MG PO SCH (10:00)
== END 2021-09-26 17:35 | disposition home or self-care (01) ==
LOC: ED 13:53 → MED SURG 20:04
PROVIDERS: ADMIT Family Medicine; ATTEND Family Medicine
DX: G45.9 Transient cerebral ischemic attack, unspecified (principal); E87.6 Hypokalemia; R07.9 Chest pain, unspecified; D72.829 Elevated white blood cell count, unspecified; E11.9 Type 2 diabetes mellitus without complications; E03.9 Hypothyroidism, unspecified; I10 Essential (primary) hypertension; Z79.899 Other long term (current) drug therapy; Z20.828 Contact with and (suspected) exposure to other viral communicable diseases
CPT/HCPCS: 0241U; 36000; 36415; 70450; 70553; 71045; 71260; 80048; 80053; 80061; 80307; 81015; 82947; 83721; 83735; 83880; 84132; 84484; 85025; 85379; 93005; 93041; 93306; 93880; 93970; 94760; 99285; 93268; J3475; J3480; A9270-GY; G0378

== ENCOUNTER 2022-04-28 04:19 | Emergency (ER) | payer BC ==
[2022-04-28] MEDS ORDERED: BABY ASPIRIN 81 MG CHEW PO ONE (05:03)
[2022-04-28 05:08] LABS: Basophil (Absolute #) 0.06 x10^3/uL (0-0.4); Eosinophil (Absolute #) 0.31 x10^3/uL (0-0.5); Hematocrit 44.1 % (42-50); Hemoglobin 14.5 g/dL (12.5-18.0); Lymphocyte (Absolute #) 1.73 x10^3/uL (1.0-4.6); Lymphocytes % 22.5 % (24.0-44.0); Mean Cell Volume 92.8 fL (78-100); Mean Corpuscular Hemoglobin 30.5 pg (26-32); Mean Corpuscular Hgb Concent. 32.9 g/dL (32-36); Mean Platelet Volume 9.7 fL (7.5-11.0); Monocyte (Absolute #) 1.26 x10^3/uL (0.0-1.3); Monocytes % 16.4 % (0.0-12.0); Neutrophil % 55.9 % (36.0-66.0); Platelet Count 257 x10^3/uL (150-450); Red Blood Count 4.75 x10^6/uL (4.1-5.6); Red Cell Distribution Width 13.6 % (11.5-14.0); White Blood Count 7.7 x10^3/uL (4.0-10.5)
--- NOTE | 2022-04-28 05:15 | ERPHSYRPT ---
<KATHE QUAN - Last Filed: 04/28/22 07:04> - History of Present Illness Time Seen by Provider: 04/28/22 05:02 Historian: patient Exam Limitations: no limitations Patient Subjective Stated Complaint: PT STATES HE WOKE UP WITH SHARP CHEST PAIN. STATES HE WAS SHORT OF BREATH AND DIZZY WHILE HAVING PAIN. STATES NOW HE HAS SOME CHEST PRESSURE, RATES 2/10 Triage Nursing Assessment: PT ALERT AND ORIENTED, ANSWERS QUESTIONS APPROP. PT AMBULATORY WITH STEADY GAIT NOTED. RESPIRATIONS NONLABORED WITH LUNGS CTA. PT PALE, WARM AND DRY. HEART RATE 71 ON MONITOR, SINUS RHYTHM Physician History: 62-year-old male with history of atrial fibrillation on Xarelto, hypertension, diabetes mellitus having Zio patch currently for 2 weeks presented in the ER with chief complaint of substernal/left-sided sharp chest pain waking her up up from sleep around 4 AM, took 2 baby aspirin and started to improve. Also reports feeling dizzy and lightheaded while having pain. It lasted for almost 10 minutes. Currently having minimal chest pressure. No difficulty breathing as of right now. Denies any fever chills or cough. Timing/Duration: sudden, improved Activities at Onset: sleep Quality: sharpness, tightness Location: substernal Chest Pain Radiation: no radiation Severity of Pain-Max: severe Severity of Pain-Current: mild Modifying Factors: Improves With: aspirin Associated Symptoms: dizziness Prior Chest Pain/Cardiac Workup: echocardiography Nitro Today/Relief: no nitro taken today Aspirin Treatment Today: 81 mg x 2 Allergies/Adverse Reactions: Penicillins Allergy (Verified 04/28/22 04:51) Hives Home Medications: Furosemide 40 mg [Lasix 40 MG] 40 mg PO BID 07/01/16 [History] Metoprolol Tartrate 25 mg PO HS 09/11/17 [History] Thyroid,Pork [[place] Thyroid] 120 mg PO DAILY 09/11/17 [History] Metformin HCl 500 mg [Glucophage 500 MG] 1,000 mg PO BID 07/06/18 [History] Insulin Lispro [Humalog] 1 unit SQ TID 04/28/22 [History] Hx Tetanus, Diphtheria Vaccination/Date Given: Yes Hx Influenza Vaccination/Date Given: No Hx Pneumococcal Vaccination/Date Given: No Immunizations Up to Date: Yes Travel Risk - International Travel Have you traveled outside of the country in past 3 weeks: No - Coronavirus Screening Are you exhibiting any of the following symptoms?: Yes Symptoms: Shortness of Breath Close contact with a COVID-19 positive Pt in past 14-21 Days: No - Vaccine Status Have you recieved a Covid-19 vaccination: Yes Senior [employer]: Pf[employer] - Vaccination Dates Date of 2cond Vaccination (if applicable): january - Review of Systems Constitutional: No Symptoms Eyes: No Symptoms Ears, Nose, & Throat: No Symptoms Respiratory: No Symptoms, Dyspnea Cardiac: Chest Pain Abdominal/Gastrointestinal: No Symptoms Genitourinary Symptoms: No Symptoms Musculoskeletal: No Symptoms Skin: No Symptoms Neurological: No Symptoms Endocrine: No Symptoms Hematologic/Lymphatic: No Symptoms Immunological/Allergic: No Symptoms - Past Medical History Pertinent Past Medical History: Yes Neurological History: No Pertinent History ENT History: No Pertinent History Cardiac History: Arrhythmia, Hypertension Respiratory History: Sleep Apnea Endocrine Medical History: Diabetes Type II, Hypothyroidism Musculoskeletal History: No Pertinent History GI Medical History: Gallbladder Disease History: No Pertinent History Psycho-Social History: No Pertinent History Male Reproductive Disorders: No Pertinent History Other Medical History: hx AFIB - Past Surgical History Past Surgical History: Yes Neuro Surgical History: No Pertinent History Cardiac: No Pertinent History Respiratory: No Pertinent History Gastrointestinal: Hernia Repair Genitourinary: Kidney Surgery Musculoskeletal: Orthopedic Surgery Male Surgical History: No Pertinent History Other Surgical History: nasal-sinus scraping, left knee scope, kidney stones removed upper and lower scopes - Social History Smoking Status: Never smoker Exposure to second hand smoke: No Drug Use: none Patient Lives Alone: No - Physical Exam General Appearance: no apparent distress, alert Eye Exam: PERRL/EOMI Ears, Nose, Throat Exam: normal ENT inspection Neck Exam: normal inspection, non-tender, supple, full range of motion Respiratory Exam: normal breath sounds, lungs clear Cardiovascular Exam: regular rate/rhythm, normal heart sounds Gastrointestinal/Abdomen Exam: soft, normal bowel sounds, No tenderness Back Exam: normal inspection, normal range of motion Extremity Exam: normal inspection, normal range of motion Neurologic Exam: alert, 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, cooperative Skin Exam: normal color SpO2 Interpretation: normal SpO2: 98 O2 Delivery: Room Air - Course EKG Interpreted by Me: RATE (68), Sinus Rhythm - Progress Progress: improved Air Movement: good Progress Note: 04/28/22 07:04 EKG showed sinus rhythm with no ST elevation, has negative initial troponin, discussed with patient about observation admission and trending cardiac enzyme. Patient does not want to stay in the hospital at all. Discussed with him about obtaining second troponin which she is agreeable. Care is transferred to at shift change Blood Culture(s) Obtained: No Antibiotics given: No Discussed with : Claribel Counseled pt/family regarding: lab results, diagnosis - Departure Clinical Impression: Chest pain in adult, Ventricular arrhythmia Condition: Stable Referrals: FEDERICA SANCHEZ [Primary Care Provider] - Follow up/PCP as directed Instructions: Chest Pain (DC), Arrhythmias, Arrhythmias (DC) Additional Instructions: During your ER visit all your heart related enzymes were negative even though you did develop some type of ventricular tachycardia about 10-12 beats for 3 to 4 seconds while you were in the emergency room. We noticed that on monitor so we have printed that out for you and you need to send that to your night worker which you are presently under care of. Rest of the ER labs were unremarkable. Please call your night worker tomorrow and let him know about your ER visits so that he can expedite further testing. Discharge/Care Plan GENEVIEVEEDITH BROWN was seen on 04/28/22 in the Emergency Room. The patient was counseled regarding Diagnosis,Lab results, Imaging studies, need for follow up and when to return to the Emergency Room. Prescriptions given: Discharge Note I have spoken with the patient and/or caregivers. I have explained the patient's condition, diagnosis and treatment plan based on the information available to me at this time. I have answered the patient's and/or caregiver's questions and addressed any concerns. The patient and/or caregivers have as good understanding of the patient's diagnosis, condition and treatment plan as can be expected at this point. The vital signs have been stable. The patient's condition is stable and appropriate for discharge from the emergency department. The patient will pursue further outpatient evaluation with the primary care physician or other designated or consulting physician as outlined in the discharge instructions. The patient and/or caregivers are agreeable to this plan of care and follow-up instructions have been explained in detail. The patient and/or caregivers have received these instruction. The patient/and or caregivers are aware that any significant change in condition or worsening of symptoms should prompt an immediate return to this or the closest emergency department or call 911. GENEVIEVEEDITH BROWN was seen on 04/28/22 n the Emergency Room. At that time you were treated for an emergent condition, during your visit Laboratory, Radiology and/or other procedures may have been ordered. It is very important that you follow-up with your Primary Care Physician FEDERICA SANCHEZ within the next 24-48 hours to review your Emergency Room visit and the final results of testing that was ordered. Some test results such as Urine Cultures, Blood Cultures, and other cultures if ordered will not be finalized for 24-48 hours. If you do not have a Primary Care Provider please call the medical records department at [phone] to obtain a copy of your results or you may sign into our patient portal to obtain these results by visiting us @ [email or web address] and completing the following steps: 1. Click on the Patient Portal link 2. Click the Patient Self Enrollment Link to complete the enrollment form and entering your 3. Once the enrollment form is completed you will receive an email with a temporary ID and password at the email address you provided. 4. Next choose a user name and password. Your user name must be at least 4 characters long and your password must be at least 4 characters long. 5. Choose a security question from the list and provide your answer to the question. If you already have signed into the Health Portal you may access your Health Care Information 09/12 by the following steps: 1. Login to our website @ [email or web address] 2. Enter your original user name and password. FAQS The [facility] Health Portal is an online tool that contains your Lab Results, Radiology Reports, Visit History, Discharge Instructions and Health Summary Lab and Radiology Results will not be available for 72 hours on the portal. The Portal is a secure site, passwords are encryted and URLs are re-written so they cannot be copied and pasted. You and authorized family members are the only ones who can access your Portal. Also there is a timeout feature that protects your information if you leave the Portal page open. If you have technical difficulty please use the Contact Us link on the page this will allow you to submit any questions you have regarding the Portal or you may contact the Medical Record Department at [phone]. <COLEMAN,LATONYA - Last Filed: 04/28/22 09:14> - Nursing Vital Signs Nursing Vital Signs: Initial Vital Signs Temperature 97.2 F 04/28/22 04:24 Pulse Rate 69 04/28/22 04:24 Respiratory Rate 18 04/28/22 04:24 Blood Pressure 123/89 04/28/22 04:24 O2 Sat by Pulse Oximetry 98 04/28/22 04:24 Pain Scale Pain Intensity 0 Ordered Tests: Active Orders 24 hr Category Date Time Status Manager Express STAT Care 04/28/22 05:03 Active EKG-ER Only STAT Care 04/28/22 05:03 Active IV Insertion STAT Care 04/28/22 05:03 Active CHEST 1 VIEW (PORTABLE) Stat Exams 04/28/22 05:03 Taken CBC W DIFF Stat Lab 04/28/22 04:50 Completed CK-Creatinine Phosphokinase Stat Lab 04/28/22 04:50 Completed CMP Stat Lab 04/28/22 04:50 Completed MAGNESIUM Stat Lab 04/28/22 08:04 Completed NT PRO BNP Stat Lab 04/28/22 04:50 Completed TROPONIN Q4H Lab 04/28/22 04:50 Completed TROPONIN Q4H Lab 04/28/22 08:04 Completed TROPONIN Q4H Lab 04/28/22 13:15 Ordered Medication Summary Discontinued Medications Generic Name Dose Route Start Last Admin Trade Name Freq PRN Reason Stop Dose Admin Aspirin 162 mg 04/28/22 05:03 04/28/22 05:15 Aspirin 81 Mg Tab.Chew PO 04/28/22 05:04 162 mg STAT ONE Administration Lab/Rad Data: Laboratory Result Diagrams 04/28/22 04:50 04/28/22 04:50 Laboratory Results 04/28/22 04/28/22 04/28/22 Range/Units 08:04 08:04 04:50 WBC (4.0-10.5) x10^3/uL RBC (4.1-5.6) x10^6/uL Hgb (12.5-18.0) g/dL Hct (42-50) % MCV (78-100) fL MCH (26-32) pg MCHC (32-36) g/dL RDW (11.5-14.0) % Plt Count (150-450) x10^3/uL MPV (7.5-11.0) fL Gran % (36.0-66.0) % Immature Gran % (Auto) (0.00-0.4) % Nucleat RBC Rel Count (0.00-0.1) % Eos # (Auto) (0-0.5) x10^3/uL Immature Gran # (Auto) (0.00-0.03) x10^3u/L Absolute Lymphs (auto) (1.0-4.6) x10^3/uL Absolute Monos (auto) (0.0-1.3) x10^3/uL Absolute Nucleated RBC (0.00-0.01) x10^3u/L Lymphocytes % (24.0-44.0) % Monocytes % (0.0-12.0) % Eosinophils % (0.00-5.0) % Basophils % (0.0-0.4) % Absolute Granulocytes (1.4-6.9) x10^3/uL Basophils # (0-0.4) x10^3/uL Sodium (137-145) mmol/L Potassium (3.5-5.1) mmol/L Chloride (98-107) mmol/L Carbon Dioxide (22-30) mmol/L Anion Gap (5-15) MEQ/L BUN (9-20) mg/dL Creatinine (0.66-1.25) mg/dL Estimated GFR ML/MIN Glucose (74-106) mg/dL Calcium (8.4-10.2) mg/dL Magnesium 1.9 (1.6-2.3) mg/dL Total Bilirubin (0.2-1.3) mg/dL AST (17-59) U/L ALT (0-50) U/L Alkaline Phosphatase (38-126) U/L Creatine Kinase (55-170) U/L Troponin I < 0.012 < 0.012 (0.000-0.034) ng/mL NT-Pro-B Natriuret Pep (0-900) pg/mL Serum Total Protein (6.3-8.2) g/dL Albumin (3.5-5.0) g/dL 04/28/22 04/28/22 Range/Units 04:50 04:50 WBC 7.7 (4.0-10.5) x10^3/uL RBC 4.75 (4.1-5.6) x10^6/uL Hgb 14.5 (12.5-18.0) g/dL Hct 44.1 (42-50) % MCV 92.8 (78-100) fL MCH 30.5 (26-32) pg MCHC 32.9 (32-36) g/dL RDW 13.6 (11.5-14.0) % Plt Count 257 (150-450) x10^3/uL MPV 9.7 (7.5-11.0) fL Gran % 55.9 (36.0-66.0) % Immature Gran % (Auto) 0.4 (0.00-0.4) % Nucleat RBC Rel Count 0.0 (0.00-0.1) % Eos # (Auto) 0.31 (0-0.5) x10^3/uL Immature Gran # (Auto) 0.03 (0.00-0.03) x10^3u/L Absolute Lymphs (auto) 1.73 (1.0-4.6) x10^3/uL Absolute Monos (auto) 1.26 (0.0-1.3) x10^3/uL Absolute Nucleated RBC 0.00 (0.00-0.01) x10^3u/L Lymphocytes % 22.5 L (24.0-44.0) % Monocytes % 16.4 H (0.0-12.0) % Eosinophils % 4.0 (0.00-5.0) % Basophils % 0.8 (0.0-0.4) % Absolute Granulocytes 4.30 (1.4-6.9) x10^3/uL Basophils # 0.06 (0-0.4) x10^3/uL Sodium 138 (137-145) mmol/L Potassium 3.4 L (3.5-5.1) mmol/L Chloride 102 (98-107) mmol/L Carbon Dioxide 31 H (22-30) mmol/L Anion Gap 7.4 (5-15) MEQ/L BUN 15 (9-20) mg/dL Creatinine 0.73 (0.66-1.25) mg/dL Estimated GFR > 60.0 ML/MIN Glucose 98 (74-106) mg/dL Calcium 8.7 (8.4-10.2) mg/dL Magnesium (1.6-2.3) mg/dL Total Bilirubin 0.40 (0.2-1.3) mg/dL AST 24 (17-59) U/L ALT 18 (0-50) U/L Alkaline Phosphatase 91 (38-126) U/L Creatine Kinase 54 L (55-170) U/L Troponin I (0.000-0.034) ng/mL NT-Pro-B Natriuret Pep 40.8 (0-900) pg/mL Serum Total Protein 6.8 (6.3-8.2) g/dL Albumin 3.8 (3.5-5.0) g/dL - Departure Departure Disposition: Home Critical Care Time: Yes Critical Care Time(excluding separately billable procedures): Critical 30-74 mins
[2022-04-28 05:23] LABS: ALBUMIN 3.8 g/dL (3.5-5.0); ALKALINE PHOSPHATASE 91 U/L (38-126); ANION GAP 7.4 MEQ/L (5-15); BLOOD UREA NITROGEN 15 mg/dL (9-20); CHLORIDE 102 mmol/L (98-107); CK-Creatinine Phosphokinase 54 U/L (55-170); Calcium 8.7 mg/dL (8.4-10.2); Carbon Dioxide 31 mmol/L (22-30); Creatinine 1 0.73 mg/dL (0.66-1.25); EST GLOMERULAR FILTRATION RATE > 60.0 ML/MIN; Glucose 98 mg/dL (74-106); NT PRO BNP 40.8 pg/mL (0-900); Potassium 3.4 mmol/L (3.5-5.1); SGOT/AST 24 U/L (17-59); SGPT/ALT 18 U/L (0-50); SODIUM 138 mmol/L (137-145); Total Protein 6.8 g/dL (6.3-8.2)
[2022-04-28 07:05] VITALS: O2SAT 98
[2022-04-28 08:24] VITALS: BP 114/86; PULSE 71
--- NOTE | 2022-04-28 10:01 | XRAY ---
Indication: Chest pain. Comparison: September 25, 2021 Portable chest remains inflated and clear. Heart not enlarged. Bony thorax intact again with mild degenerative changes. New left upper chest electronic monitoring device.
== END 2022-04-28 10:03 | disposition home or self-care (01) ==
LOC: ED 04:19
DX: I49.8 Other specified cardiac arrhythmias (principal); R07.9 Chest pain, unspecified; R42 Dizziness and giddiness; I10 Essential (primary) hypertension; E11.9 Type 2 diabetes mellitus without complications; Z79.01 Long term (current) use of anticoagulants; Z79.4 Long term (current) use of insulin; Z79.84 Long term (current) use of oral hypoglycemic drugs; Z79.899 Other long term (current) drug therapy
CPT/HCPCS: 36000; 36415; 71045; 80053; 82550; 83735; 83880; 84484; 85025; 93005; 93041; 99284; 99291; A9270-GY

== ENCOUNTER 2022-07-16 12:38 | Emergency (ER) | payer BC ==
[2022-07-16] MEDS ORDERED: MORPHINE SULFATE 4 MG INJ IV ONE (12:44)
[2022-07-16] MEDS ORDERED: BABY ASPIRIN 81 MG CHEW PO ONE (12:44)
[2022-07-16] MEDS ORDERED: Zofran 4 MG/2 ML VIAL IV ONE (12:44)
--- NOTE | 2022-07-16 12:44 | ERPHSYRPT ---
- History of Present Illness Time Seen by Provider: 07/16/22 12:44 Historian: patient Exam Limitations: no limitations Physician History: This is a morbidly obese 62-year-old white male patient of Dr. Shade Bolanos and Dr. Jerod Wallerdichata, who presents with left-sided chest pain that radiates to the right side, straight through to his back and to the left upper extremity and left neck. He has had 2 episodes of this type of pain since Friday prior to this evaluation. Patient thought he had a scheduled cardiology appointment today and went to the graduate teaching associate office. His appointment was actually on 08/13/2022 but they evaluated him and told him to come to the emergency department patient did take 1 nitroglycerin prior to arrival. He has not taken any aspirin today. He has some cardiac issues per his report but no diagnosed coronary artery disease. He is never had cardiac stents or CABG performed. 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 Patient has a history of hypothyroidism, hypertension, insulin-dependent diabetes, and sleep apnea. Patient is not short of breath. He has no abdominal pain. He has had no nausea vomiting or diarrhea. He has had no fevers. Timing/Duration: day(s) (2), intermittent Activities at Onset: none Quality: pressure Location: other (Left anterior chest) Chest Pain Radiation: neck, arm (Left left), back (Straight through to the back) Severity of Pain-Max: mild (To moderate) Severity of Pain-Current: mild (To moderate) Modifying Factors: Improves With: nothing Associated Symptoms: denies symptoms Nitro Today/Relief: 0.4 mg x 1, mild relief Aspirin Treatment Today: no aspirin today Allergies/Adverse Reactions: Penicillins Allergy (Verified 07/16/22 12:41) Hives Home Medications: Furosemide 40 mg [Lasix 40 MG] 40 mg PO BID 07/01/16 [History] Metoprolol Tartrate 25 mg PO HS 09/11/17 [History] Thyroid,Pork [[place] Thyroid] 120 mg PO DAILY 09/11/17 [History] Metformin HCl 500 mg [Glucophage 500 MG] 1,000 mg PO BID 07/06/18 [History] Insulin Lispro [Humalog] 1 unit SQ TID 12/11/22 [History] Hx Tetanus, Diphtheria Vaccination/Date Given: Yes Hx Influenza Vaccination/Date Given: No Hx Pneumococcal Vaccination/Date Given: No Travel Risk - International Travel Have you traveled outside of the country in past 3 weeks: No - Coronavirus Screening Are you exhibiting any of the following symptoms?: No Close contact with a COVID-19 positive Pt in past 14-21 Days: No - Vaccine Status Have you recieved a Covid-19 vaccination: Yes [employer]: [employer] - Vaccination Dates Date of 2cond Vaccination (if applicable): january - Review of Systems Constitutional: No Symptoms Eyes: No Symptoms Ears, Nose, & Throat: No Symptoms Respiratory: No Symptoms Cardiac: Chest Pain Abdominal/Gastrointestinal: No Symptoms Genitourinary Symptoms: No Symptoms Musculoskeletal: No Symptoms Skin: No Symptoms Neurological: No Symptoms Psychological: No Symptoms Endocrine: No Symptoms Hematologic/Lymphatic: No Symptoms Immunological/Allergic: No Symptoms All Other Systems: Reviewed and Negative - Past Medical History Pertinent Past Medical History: Yes Neurological History: No Pertinent History ENT History: No Pertinent History Cardiac History: Arrhythmia, Hypertension Respiratory History: Sleep Apnea Endocrine Medical History: Diabetes Type II, Hypothyroidism Musculoskeletal History: No Pertinent History GI Medical History: Gallbladder Disease History: No Pertinent History Psycho-Social History: No Pertinent History Male Reproductive Disorders: No Pertinent History Other Medical History: hx AFIB - Past Surgical History Past Surgical History: Yes Neuro Surgical History: No Pertinent History Cardiac: No Pertinent History Respiratory: No Pertinent History Gastrointestinal: Hernia Repair Genitourinary: Kidney Surgery Musculoskeletal: Orthopedic Surgery Male Surgical History: No Pertinent History Other Surgical History: nasal-sinus scraping, left knee scope, kidney stones removed upper and lower scopes - Social History Smoking Status: Never smoker Exposure to second hand smoke: No Drug Use: none Patient Lives Alone: No - Nursing Vital Signs Nursing Vital Signs: Initial Vital Signs Temperature 97.2 F 07/16/22 12:44 Pulse Rate 103 H 07/16/22 12:44 Respiratory Rate 20 07/16/22 12:44 Blood Pressure 105/69 07/16/22 12:44 O2 Sat by Pulse Oximetry 98 07/16/22 12:44 Pain Scale Pain Intensity 8 - Physical Exam General Appearance: no apparent distress, alert, anxiety, obese Eye Exam: PERRL/EOMI, eyes nml inspection Ears, Nose, Throat Exam: normal ENT inspection, moist mucous membranes Neck Exam: normal inspection, non-tender, supple, full range of motion Respiratory Exam: normal breath sounds, chest tenderness, lungs clear, No respiratory distress, No airway intact Cardiovascular Exam: regular rate/rhythm, normal heart sounds, normal peripheral pulses Gastrointestinal/Abdomen Exam: soft, normal bowel sounds, No tenderness Rectal Exam: not done Back Exam: normal inspection, normal range of motion, No CVA tenderness, No vertebral tenderness Extremity Exam: normal inspection, normal range of motion, pelvis stable Neurologic Exam: alert, 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, cooperative, roll on man II-XII nml as tested, normal mood/affect, nml cerebellar function, nml station & gait, sensation nml Skin Exam: normal color, warm, dry Lymphatic Exam: No adenopathy SpO2 Interpretation: normal O2 Delivery: Room Air - Course Nursing assessment & vital signs reviewed: Yes Ordered Tests: Active Orders 24 hr Category Date Time Status EKG-ER Only STAT Care 07/16/22 12:44 Active IV Insertion STAT Care 07/16/22 12:44 Active Pulse Oximetry (ED) STAT Care 07/16/22 12:44 Active CHEST 1 VIEW (PORTABLE) Stat Exams 07/16/22 13:02 Completed CBC W DIFF Stat Lab 07/16/22 12:44 Completed CMP Stat Lab 07/16/22 13:00 Completed D-DIMER QUANTITATIVE Stat Lab 07/16/22 13:00 Completed PROTIME WITH INR Stat Lab 07/16/22 13:00 Completed TROPONIN Q4H Lab 07/16/22 13:58 Completed TROPONIN Q4H Lab 07/16/22 15:45 Completed TROPONIN Q4H Lab 07/16/22 22:00 Ordered Medication Summary Generic Name Dose Route Start Last Admin Trade Name Freq PRN Reason Stop Dose Admin Sodium Chloride 1,000 mls @ 100 mls/hr 07/16/22 13:00 07/16/22 13:00 Sodium Chloride 0.9% 1000 Ml IV 08/15/22 12:59 100 mls/hr .Q10H EDISON Administration Discontinued Medications Generic Name Dose Route Start Last Admin Trade Name Freq PRN Reason Stop Dose Admin Hydrocodone Bitart/Acetaminophen 1 tab 07/16/22 15:57 07/16/22 16:00 Hydrocodone/Apap 5/325 1 Tab Tablet PO 07/16/22 15:58 1 tab STAT ONE Administration Hydrocodone Bitart/Acetaminophen Confirm 07/16/22 15:59 Hydrocodone/Apap 5/325 1 Tab Tablet Administered 07/16/22 16:00 Dose 1 tab .ROUTE .STK-MED ONE Aspirin 324 mg 07/16/22 12:44 07/16/22 12:56 Aspirin 81 Mg Tab.Chew PO 07/16/22 12:45 324 mg STAT ONE Administration Aspirin Confirm 07/16/22 12:55 Aspirin 81 Mg Tab.Chew Administered 07/16/22 12:56 Dose 324 mg .ROUTE .STK-MED ONE Morphine Sulfate 4 mg 07/16/22 12:44 07/16/22 12:58 Morphine Sulfate 4 Mg/Ml Injection IV 07/16/22 12:45 4 mg STAT ONE Administration Morphine Sulfate Confirm 07/16/22 12:55 Morphine Sulfate 4 Mg/Ml Injection Administered 07/16/22 12:56 Dose 4 mg .ROUTE .STK-MED ONE Ondansetron HCl 4 mg 07/16/22 12:44 07/16/22 12:58 Ondansetron Hcl 4 Mg/2 Ml Vial IV 07/16/22 12:45 4 mg STAT ONE Administration Ondansetron HCl Confirm 07/16/22 12:55 Ondansetron Hcl 4 Mg/2 Ml Vial Administered 07/16/22 12:56 Dose 4 mg .ROUTE .STK-MED ONE Lab/Rad Data: Laboratory Result Diagrams 07/16/22 12:44 07/16/22 13:00 Laboratory Results 07/16/22 07/16/22 07/16/22 Range/Units 15:45 13:58 13:00 WBC (4.0-10.5) x10^3/uL RBC (4.1-5.6) x10^6/uL Hgb (12.5-18.0) g/dL Hct (42-50) % MCV (78-100) fL MCH (26-32) pg MCHC (32-36) g/dL RDW (11.5-14.0) % Plt Count (150-450) x10^3/uL MPV (7.5-11.0) fL Gran % (36.0-66.0) % Immature Gran % (Auto) (0.00-0.4) % Nucleat RBC Rel Count (0.00-0.1) % Eos # (Auto) (0-0.5) x10^3/uL Immature Gran # (Auto) (0.00-0.03) x10^3u/L Absolute Lymphs (auto) (1.0-4.6) x10^3/uL Absolute Monos (auto) (0.0-1.3) x10^3/uL Absolute Nucleated RBC (0.00-0.01) x10^3u/L Lymphocytes % (24.0-44.0) % Monocytes % (0.0-12.0) % Eosinophils % (0.00-5.0) % Basophils % (0.0-0.4) % Absolute Granulocytes (1.4-6.9) x10^3/uL Basophils # (0-0.4) x10^3/uL PT 11.3 (9.4-12.5) SECONDS INR 1.04 (0.8-3.0) D-Dimer 0.34 (0.0-0.50) mg/L Sodium (137-145) mmol/L Potassium (3.5-5.1) mmol/L Chloride (98-107) mmol/L Carbon Dioxide (22-30) mmol/L Anion Gap (5-15) MEQ/L BUN (9-20) mg/dL Creatinine (0.66-1.25) mg/dL Estimated GFR ML/MIN Glucose (74-106) mg/dL Calcium (8.4-10.2) mg/dL Total Bilirubin (0.2-1.3) mg/dL AST (17-59) U/L ALT (0-50) U/L Alkaline Phosphatase (38-126) U/L Troponin I < 0.012 < 0.012 (0.000-0.034) ng/mL Serum Total Protein (6.3-8.2) g/dL Albumin (3.5-5.0) g/dL 07/16/22 07/16/22 Range/Units 13:00 12:44 WBC 13.9 H (4.0-10.5) x10^3/uL RBC 4.97 (4.1-5.6) x10^6/uL Hgb 17.1 (12.5-18.0) g/dL Hct 46.7 (42-50) % MCV 94.0 (78-100) fL MCH 34.4 H (26-32) pg MCHC 36.6 H (32-36) g/dL RDW 13.9 (11.5-14.0) % Plt Count 303 (150-450) x10^3/uL MPV 9.7 (7.5-11.0) fL Gran % 83.2 H (36.0-66.0) % Immature Gran % (Auto) 0.3 (0.00-0.4) % Nucleat RBC Rel Count 0.0 (0.00-0.1) % Eos # (Auto) 0.17 (0-0.5) x10^3/uL Immature Gran # (Auto) 0.04 H (0.00-0.03) x10^3u/L Absolute Lymphs (auto) 1.20 (1.0-4.6) x10^3/uL Absolute Monos (auto) 0.88 (0.0-1.3) x10^3/uL Absolute Nucleated RBC 0.00 (0.00-0.01) x10^3u/L Lymphocytes % 8.6 L (24.0-44.0) % Monocytes % 6.3 (0.0-12.0) % Eosinophils % 1.2 (0.00-5.0) % Basophils % 0.4 (0.0-0.4) % Absolute Granulocytes 11.57 H (1.4-6.9) x10^3/uL Basophils # 0.06 (0-0.4) x10^3/uL PT (9.4-12.5) SECONDS INR (0.8-3.0) D-Dimer (0.0-0.50) mg/L Sodium 138 (137-145) mmol/L Potassium 3.8 (3.5-5.1) mmol/L Chloride 99 (98-107) mmol/L Carbon Dioxide 30 (22-30) mmol/L Anion Gap 12.9 (5-15) MEQ/L BUN 15 (9-20) mg/dL Creatinine 0.85 (0.66-1.25) mg/dL Estimated GFR > 60.0 ML/MIN Glucose 157 H (74-106) mg/dL Calcium 8.5 (8.4-10.2) mg/dL Total Bilirubin 0.70 (0.2-1.3) mg/dL AST 19 (17-59) U/L ALT 18 (0-50) U/L Alkaline Phosphatase 103 (38-126) U/L Troponin I (0.000-0.034) ng/mL Serum Total Protein 7.3 (6.3-8.2) g/dL Albumin 4.2 (3.5-5.0) g/dL - Progress Progress: improved, re-examined Air Movement: good Progress Note: 07/16/22 13:46 Chest x-ray shows no acute cardiopulmonary process. This chest x-ray was interpreted by me. The radiology impression report was read by me and confirmed my impression. 07/16/22 15:17 This patient has medical history of moderate complexity. I reviewed the patient's medical history, medication list and allergy list. The work-up performed was based on the above as well as history of present illness and physical findings on physical examination. The work-up included placement of IV, low rate intravenous fluid infusion, twelve-lead EKG, troponin, D-dimer CBC, CMP and chest x-ray. I reviewed the results. Chest x-ray does not show any acute cardiopulmonary process. The 12-lead EKG does not show any acute ischemia. His D-dimer is normal as is his troponin. I put a call into Dr. Jerod Cummins who is the patient's graduate teaching associate. He returned my call. I sent him the twelve-lead EKG. He told me that we would do a rapid clearance of this patient for the cardiac standpoint with obtaining a 3-hour troponin level. If this is normal patient can be discharged to home. Blood Culture(s) Obtained: No Antibiotics given: No Counseled pt/family regarding: lab results, diagnosis, need for follow-up, rad results Medical Desision Making - External Record(s) Reviewed Records reviewed as a part of evaluation & management: Clinic - Discussion of managment Reviewed:: Test results, Need for additional workup Agreed on:: Treatment plan, need for follow-up - Diagnostic Testing Diagnostic test were ordered, analyzed, and reviewed by me: Yes Radiological Interpretation: Interpreted by me, Reviewed by me, Teleradiologist Report - Departure Departure Disposition: Home Clinical Impression: Chest pain Condition: Stable Critical Care Time: No Referrals: FEDERICA SANCHEZ [Primary Care Provider] - Follow up/PCP as directed Additional Instructions: Continue medication as prescribed. Follow-up with your graduate teaching associate for further evaluation management.
[2022-07-16] MEDS ORDERED: MORPHINE SULFATE 4 MG INJ ONE (12:55)
[2022-07-16] MEDS ORDERED: BABY ASPIRIN 81 MG CHEW ONE (12:55)
[2022-07-16] MEDS ORDERED: Zofran 4 MG/2 ML VIAL ONE (12:55)
[2022-07-16] MEDS ORDERED: Sodium Chloride 0.9% 1000 ML 1,000 ML ONE (13:00)
[2022-07-16] MEDS ORDERED: Sodium Chloride 0.9% 1000 ML 1,000 ML IV SCH (13:00)
[2022-07-16 13:15] LABS: Absolute Neutrophil Ct (ANC) 11.57 x10^3/uL (1.4-6.9); BASOPHIL % 0.4 % (0.0-0.4); Basophil (Absolute #) 0.06 x10^3/uL (0-0.4); Eosinophil % 1.2 % (0.00-5.0); Eosinophil (Absolute #) 0.17 x10^3/uL (0-0.5); Hematocrit 46.7 % (42-50); Hemoglobin 17.1 g/dL (12.5-18.0); IMMATURE GRAN # 0.04 x10^3u/L (0.00-0.03); IMMATURE GRAN % 0.3 % (0.00-0.4); Lymphocytes % 8.6 % (24.0-44.0); Mean Corpuscular Hemoglobin 34.4 pg (26-32); Mean Corpuscular Hgb Concent. 36.6 g/dL (32-36); Mean Platelet Volume 9.7 fL (7.5-11.0); Monocyte (Absolute #) 0.88 x10^3/uL (0.0-1.3); Monocytes % 6.3 % (0.0-12.0); Neutrophil % 83.2 % (36.0-66.0); Platelet Count 303 x10^3/uL (150-450); Red Blood Count 4.97 x10^6/uL (4.1-5.6); Red Cell Distribution Width 13.9 % (11.5-14.0); White Blood Count 13.9 x10^3/uL (4.0-10.5)
[2022-07-16 13:31] LABS: ALBUMIN 4.2 g/dL (3.5-5.0); ALKALINE PHOSPHATASE 103 U/L (38-126); ANION GAP 12.9 MEQ/L (5-15); BLOOD UREA NITROGEN 15 mg/dL (9-20); CHLORIDE 99 mmol/L (98-107); Calcium 8.5 mg/dL (8.4-10.2); Carbon Dioxide 30 mmol/L (22-30); Creatinine 1 0.85 mg/dL (0.66-1.25); EST GLOMERULAR FILTRATION RATE > 60.0 ML/MIN; Glucose 157 mg/dL (74-106); Potassium 3.8 mmol/L (3.5-5.1); SGOT/AST 19 U/L (17-59); SGPT/ALT 18 U/L (0-50); SODIUM 138 mmol/L (137-145); Total Protein 7.3 g/dL (6.3-8.2)
[2022-07-16 13:32] LABS: D-DIMER QUANTITATIVE 0.34 mg/L (0.0-0.50); INR 1.04 (0.8-3.0); PROTIME 11.3 SECONDS (9.4-12.5)
--- NOTE | 2022-07-16 13:43 | XRAY ---
Indication: Chest pain. Comparison: April 28, 2022 Portable chest remains inflated and clear. Heart not enlarged again with incidental right infrahilar calcified nodes. Bony thorax intact again with mild degenerative changes. No new/acute findings.
[2022-07-16] MEDS ORDERED: NORCO 5/325 MG PO ONE (15:57)
[2022-07-16] MEDS ORDERED: NORCO 5/325 MG ONE (15:59)
[2022-07-16 16:06] VITALS: BP 122/78; PULSE 97; O2SAT 94
== END 2022-07-16 16:46 | disposition home or self-care (01) ==
LOC: ED 12:38
DX: R07.9 Chest pain, unspecified (principal); E11.9 Type 2 diabetes mellitus without complications; I10 Essential (primary) hypertension; Z79.4 Long term (current) use of insulin; Z79.84 Long term (current) use of oral hypoglycemic drugs; Z79.899 Other long term (current) drug therapy
CPT/HCPCS: 36000; 36415; 71045; 80053; 84484; 85025; 85379; 85610; 93005; 94760; 96374; 96375; 99284; J2270; J2405; A9270-GY

== ENCOUNTER 2023-01-15 12:48 | Emergency (ER) | payer BC ==
--- NOTE | 2023-01-15 12:52 | ERPHSYRPT ---
- History of Present Illness Time Seen by Provider: 01/15/23 12:52 Source: patient Exam Limitations: no limitations Physician History: This is a 63-year-old white male patient of Dr. Henning who was bent over working on his car. He suddenly stood up felt dizzy and as he started to walk he fell forward hitting his head. He presents to the emergency department with a hematoma to his left forehead and mild neck pain. He denies chest pain. He denies shortness of breath. He has no abdominal pain. He denies visual changes. He stated that he did lose consciousness for just a few seconds. Patient has a history of insulin-dependent diabetes, hypothyroidism, hyperten jcarlos, atrial fibrillation and sleep apnea. Immediately upon entrance into the emergency department, we placed a cervical collar on him. Occurred: just prior to arrival Severity: mild Head Injury Location: frontal Method of Injury: fell Loss of Consciousness: brief (seconds) Associated Symptoms: other (Headache in the area of the hematoma and mild neck pain) Allergies/Adverse Reactions: Penicillins Allergy (Verified 01/15/23 12:58) Hives Home Medications: Furosemide 40 mg [Lasix 40 MG] 40 mg PO BID 07/01/16 [History] Metoprolol Tartrate 25 mg PO HS 09/11/17 [History] Thyroid,Pork [[place] Thyroid] 120 mg PO DAILY 09/11/17 [History] Metformin HCl 500 mg [Glucophage 500 MG] 1,000 mg PO BID 07/06/18 [History] Insulin Lispro [Humalog] 1 unit SQ TID 04/28/22 [History] Hx Tetanus, Diphtheria Vaccination/Date Given: Yes Hx Influenza Vaccination/Date Given: No Hx Pneumococcal Vaccination/Date Given: No Travel Risk - International Travel Have you traveled outside of the country in past 3 weeks: No - Coronavirus Screening Are you exhibiting any of the following symptoms?: No Close contact with a COVID-19 positive Pt in past 14-21 Days: No - Vaccine Status Have you recieved a Covid-19 vaccination: Yes 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: [employer] - Vaccination Dates Date of 2cond Vaccination (if applicable): january - Review of Systems Constitutional: No Symptoms Eyes: No Symptoms Ears, Nose, & Throat: No Symptoms Respiratory: No Symptoms Cardiac: No Symptoms Abdominal/Gastrointestinal: No Symptoms Genitourinary Symptoms: No Symptoms Musculoskeletal: Neck Pain (Mild posterior midline) Skin: No Symptoms Neurological: Headache (Localized to the area of injury on the left forehead) Psychological: No Symptoms Endocrine: No Symptoms Hematologic/Lymphatic: No Symptoms Immunological/Allergic: No Symptoms All Other Systems: Reviewed and Negative - Past Medical History Pertinent Past Medical History: Yes Neurological History: No Pertinent History ENT History: No Pertinent History Cardiac History: Arrhythmia, Hypertension Respiratory History: Sleep Apnea Endocrine Medical History: Diabetes Type II, Hypothyroidism Musculoskeletal History: No Pertinent History GI Medical History: Gallbladder Disease History: No Pertinent History Psycho-Social History: No Pertinent History Male Reproductive Disorders: No Pertinent History Other Medical History: hx AFIB - Past Surgical History Past Surgical History: Yes Neuro Surgical History: No Pertinent History Cardiac: No Pertinent History Respiratory: No Pertinent History Gastrointestinal: Hernia Repair Genitourinary: Kidney Surgery Musculoskeletal: Orthopedic Surgery Male Surgical History: No Pertinent History Other Surgical History: nasal-sinus scraping, left knee scope, kidney stones removed upper and lower scopes - Social History Smoking Status: Never smoker Exposure to second hand smoke: No Drug Use: none Patient Lives Alone: No - Nursing Vital Signs Nursing Vital Signs: Initial Vital Signs Temperature 97.9 F 01/15/23 13:00 Pulse Rate 85 01/15/23 13:00 Respiratory Rate 18 01/15/23 13:00 Blood Pressure 112/73 01/15/23 13:00 O2 Sat by Pulse Oximetry 97 01/15/23 13:00 Pain Scale Pain Intensity 0 - [place] Coma Score Best Eye Response (Samreen): (4) open spontaneously Best Verbal Response (Samreen): (5) oriented Best Motor Response (Samreen): (6) obeys commands [place] Total: 15 - Physical Exam General Appearance: no apparent distress, alert, anxiety Head Injury: swelling (Hematoma left forehead) Eye Exam: bilateral eye: normal inspection, PERRL, EOMI ENT Exam: airway nml, nml ext.inspection, No evidence of ENT injury, No dental injury Neck Exam: trachea midline, c-collar in place Cardiovascular/Respiratory Exam: chest non-tender, normal breath sounds, regular rate/rhythm, heart sounds normal, no ecchymosis, no respiratory distress, no rmal peripheral pulses, No crepitus Gastrointestinal/Abdominal Exam: soft, non tender, no distention, no mass, no guarding, no ecchymosis, no organomegaly, no pulsatile mass, normal bowel sounds Rectal Exam: not done Back Exam: normal inspection, normal range of motion, No CVA tenderness, No vertebral tenderness Extremity Exam: non-tender, normal range of motion, normal inspection Mental Status Exam: 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, 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, 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 Exam: normal hearing, normal speech, PERRL, tongue midline Coordination/Gait Exam: normal finger to nose, normal gait, normal cerebellar function Motor/Sensory Exam: no motor deficit, no sensory deficit, no pronator drift Skin Exam: normal color, warm, dry Lymphatic Exam: No adenopathy SpO2 Interpretation: normal O2 Delivery: Room Air - Course Nursing assessment & vital signs reviewed: Yes Ordered Tests: Active Orders 24 hr Category Date Time Status CERVICAL SPINE WO CONTRAST [CT] Stat Exams 01/15/23 13:05 Taken HEAD WITHOUT CONTRAST [CT] Stat Exams 01/15/23 15:06 Completed - Progress Progress: improved, pain not gone completely, re-examined Progress Note: 01/15/23 13:54 This patient's medical issue is 1 of low to moderate complexity. The level complexity and the work-up performed is based on review of the patient's past medical history, review of the patient's medication list, review the patient's drug allergy list, history present illness and physical findings on examination. In this patient, it appeared that the patient had a vasovagal/syncopal episode when arising from a bent over position to a standing position. Patient does not have any chest pain. He is not short of breath. He is on Xarelto and Plavix and he did hit his head and therefore there is a hematoma present on the left side of his forehead. There is no lacerations appreciated. He does have some mild neck pain. We placed a cervical collar on him as he entered into this emergency department. We ordered a CT scan of the head and cervical spine x- ray both without contrast. 01/15/23 16:18 CT scan of the cervical spine without contrast shows no acute fracture or subluxation. CT scan of the head without contrast shows a left frontal scalp hematoma without underlying fracture or intracranial abnormality. Counseled pt/family regarding: diagnosis, need for follow-up, rad results Medical Desision Making - Independent Historian Additional History obtained from: Spouse - Diagnostic Testing Diagnostic test were ordered, analyzed, and reviewed by me: Yes Radiological Interpretation: Reviewed by me, Teleradiologist Report - Risk of complications The pt has a mod risk of morbidity or mortality based on: Need for prescription drug management - Departure Departure Disposition: Home Clinical Impression: Head injury, Fall with no significant injury Condition: Stable Critical Care Time: No Referrals: JOY HENNING MD [Primary Care Provider] - Follow up/PCP as directed Additional Instructions: Ice pack to forehead hematoma 3 times a day for the next 48 hours. Hold your Plavix and Xarelto for 48 hours then restart. Take your medications as prescribed except for the Plavix and Xarelto. Prescriptions: Oxycodone HCl/Acetaminophen [Percocet 5-325 mg Tablet] 1 each PO Q8H PRN PRN #6 tablet MDD 3 PRN Reason: Moderate To Severe Pain
[2023-01-15 13:10] VITALS: RESP 18; TEMP 97.9
[2023-01-15 15:28] VITALS: O2SAT 98
--- NOTE | 2023-01-15 16:16 | XRAY ---
Indication: Head injury following fall. Left supraorbital hematoma. Multiple contiguous axial images obtained through the head without contrast. Comparison: September 25, 2021 Again age-appropriate global atrophy. No acute intracranial hemorrhage, abnormal extra-axial fluid collection, or mass effect. Fourth ventricle is midline without hydrocephalus. Velazquez-white matter differentiation preserved. New moderate-sized left frontal scalp hematoma. Bony calvarium intact. Visualized paranasal sinuses and mastoid air cells are clear. Impression: Left frontal scalp hematoma. No underlying fracture or acute intracranial abnormalities.
[2023-01-15] MEDS ORDERED: PERCOCET TABLET 5/325MG PO STA (16:18)
[2023-01-15] MEDS ORDERED: Norflex 100 MG Tablet PO ONE ×2 (16:18→16:47)
--- NOTE | 2023-01-15 16:18 | XRAY ---
Indication: Head injury following fall. Left supraorbital hematoma. Multiple contiguous axial images obtained through the cervical spine. Sagittal and coronal reformatted images obtained. Comparison: September 01, 2017 Axial images again negative for acute fracture, suspicious bony lesions, or spinal canal stenosis. Again minimal C5-C7 degenerative endplate spurring. Facets are symmetric. Sagittal and coronal reformatted images again demonstrates lordotic straightening, positional versus paraspinal spasm. No acute compression fracture, subluxation, or jumped facet. Normal appearing craniocervical junction. Visualized noncontrasted soft tissues including lung apices are unremarkable. Impression: Continued negative acute fracture/subluxation. Again cervical lordotic straightening and minimal C5-C7 degenerative changes.
[2023-01-15] MEDS ORDERED: PERCOCET TABLET 5/325MG ONE (16:48)
[2023-01-15 17:01] VITALS: BP 129/87; PULSE 90
== END 2023-01-15 17:24 | disposition home or self-care (01) ==
LOC: ED 12:48
DX: S09.90XA Unspecified injury of head, initial encounter (principal); W19.XXXA Unspecified fall, initial encounter; M54.2 Cervicalgia; E11.9 Type 2 diabetes mellitus without complications; I10 Essential (primary) hypertension; Z79.84 Long term (current) use of oral hypoglycemic drugs; Z79.4 Long term (current) use of insulin; Z79.899 Other long term (current) drug therapy
CPT/HCPCS: 36000; 70450; 72125; 99283; A9270-GY